=== PATIENT | male | born 1940 | race Caucasian/White ===

== ENCOUNTER → 2020-08-02 08:38 | Outpatient (BNVA) | payer MEDICARE, SELFPAY | PROVIDERS: Family Provider Emergency Medicine; PCP Family Medicine; Visit Provider Urology | DX: R97.20 Elevated prostate specific antigen [PSA] (principal); N40.1 Benign prostatic hyperplasia with lower urinary tract symptoms; N13.8 Other obstructive and reflux uropathy; R39.89 Other symptoms and signs involving the genitourinary system | CPT/HCPCS: 81003; 84153 ==

== ENCOUNTER → 2020-12-03 13:15 | Outpatient (BNVA) | payer MEDICARE, SELFPAY | PROVIDERS: Family Provider Emergency Medicine; PCP Family Medicine; Visit Provider Urology | DX: R97.20 Elevated prostate specific antigen [PSA] (principal); N39.9 Disorder of urinary system, unspecified; R39.9 Unspecified symptoms and signs involving the genitourinary system | CPT/HCPCS: 81003; G0103 ==

== ENCOUNTER → 2021-08-06 12:58 | Outpatient (BNVA) | payer MEDICARE, SELFPAY | PROVIDERS: Family Provider Emergency Medicine; PCP Family Medicine; Visit Provider Urology | DX: R39.9 Unspecified symptoms and signs involving the genitourinary system (principal); R97.20 Elevated prostate specific antigen [PSA] | CPT/HCPCS: 81003; 84153 ==

== ENCOUNTER 2022-04-26 10:22 | Emergency (ER) | payer MEDICARE, SELFPAY ==
[2022-04-26 10:35] VITALS: BP 144/73; PULSE 99; RESP 14; TEMP 36.8; O2SAT 96; BMI 21.8
--- NOTE | 2022-04-26 11:18 | USR_ITS ---
PROCEDURE INFORMATION: Exam: US Abdomen, Limited; Right Upper Quadrant Exam date and time: 04/26/2022 11:32 AM Age: 82 years old Clinical indication: Abdominal pain; Other: Ruq after eating TECHNIQUE: Imaging protocol: Real time ultrasound of the abdomen with image documentation. Limited exam focused on the right upper quadrant. COMPARISON: No relevant prior studies available. FINDINGS: Liver: Unremarkable. Gallbladder: No gallstones. No gallbladder wall thickening or pericholecystic fluid. Negative sonographic Tobar's sign, as per the performing edge sawyer. Biliary ducts: Normal. No stones. No dilation. Pancreas: Unremarkable as visualized. Right kidney: 1.6 x 1.9 x 1.2 cm simple cyst. No solid mass. No definite stones. No hydronephrosis. US/US gall bladder [id number] IMPRESSION: No acute sonographic findings.
[2022-04-26 12:07] LABS: Basophils # 0.1 10^3/uL (0.0-0.1); Basophils % 0.3 %; Eosinophils # 0.5 10^3/uL (0.0-0.8); Eosinophils % 1.8 %; Hematocrit 42.3 % (42.0-52.0); Hemoglobin 13.6 g/dL (11.7-16.6); Lymphocytes # 1.5 10^3/uL (0.8-4.8); Mean Corpuscular HGB Conc 32.2 g/dL (30.0-36.0); Mean Corpuscular Hemoglobin 29.6 pg (28.0-34.0); Mean Corpuscular Volume 92.2 fl (80-94); Mean Platelet Volume 9.8 fL (7.4-10.4); Monocytes # 4.8 10^3/uL (0.2-0.9); Neutrophils % 69.6 %; Nucleated Red Blood Cells % 0 %; Platelet Count 338 10^3/cmm (130-400); Red Blood Count 4.59 10^6/uL (4.1-5.3); Red Cell Distribution Width 14.6 % (12.1-15.1); White Blood Count 29.7 10^3/uL (4.0-10.0)
[2022-04-26 12:21] VITALS: BP 135/69; PULSE 72; RESP 18; TEMP 36.3; O2SAT 99
[2022-04-26 12:24] LABS: Alanine Aminotransferase 13 U/L (0-41); Albumin Level 3.3 g/dL (3.5-5.2); Alkaline Phosphatase 133 U/L (40-130); Anion Gap 14.2 (5-19); Aspartate Amino Transferase 18 U/L (0-40); Blood Urea Nitrogen 18 mg/dL (8-23); Calcium 9.4 mg/dL (8.5-10.5); Carbon Dioxide 32 mmol/L (22-29); Chloride 95 mmol/L (98-107); Globulin 3.3 g/dL (1.3-4.6); Glucose 143 mg/dL (65-115); Lipase 14 U/L (13-60); Osmolality Calculated 290 mOsm/kg (285-295); Potassium 3.2 mmol/L (3.5-5.1); Sodium 138 mmol/L (136-145); Total Bilirubin 0.5 mg/dL (0.15-1.2); Total Protein 6.6 g/dL (6.6-8.7)
[2022-04-26 12:33] LABS: Slide Review Slide Review Perform
--- NOTE | 2022-04-26 12:40 | CTR_ITS ---
PROCEDURE INFORMATION: Exam: CT Abdomen And Pelvis With Contrast Exam date and time: 04/26/2022 2:55 PM Age: 82 years old Clinical indication: Abdominal pain; Epigastric; Additional info: Abd pain TECHNIQUE: Imaging protocol: Computed tomography of the abdomen and pelvis with contrast. Axial, coronal and sagittal reformatted images were created and reviewed. Radiation optimization: All CT scans at this facility use at least one of these dose optimization techniques: automated exposure control; mA and/or kV adjustment per patient size (includes targeted exams where dose is matched to clinical indication); or iterative reconstruction. Contrast material: OMNI 350; Contrast volume: 80 ml; Contrast route: INTRA-ARTERIAL (ARTERIAL); COMPARISON: US gall bladder [id number] 04/26/2022 11:32 AM RADIATION DOSE METRICS: Total DLP (mGy-cm): 353.93 FINDINGS: Liver: Unremarkable. Gallbladder and bile ducts: No radiodense gallstones. No biliary ductal dilatation. Pancreas: Unremarkable. Spleen: Unremarkable. Adrenal glands: Normal. No mass. Kidneys and ureters: Bilateral renal cysts, measuring up to 1.6 cm on the right (no follow-up is indicated based on the imaging appearance). Mild to moderate left-sided hydronephrosis and perinephric stranding, secondary to a 1.3 x 1.8 cm calculus in the proximal left ureter (axial image 43 and coronal image 24). Nonobstructing bilateral renal calculi. Stomach and bowel: Mild, diffuse small bowel wall thickening and hyperemia. Large duodenal diverticula. Colonic diverticulosis without evidence of diverticulitis. No obstruction. No pneumatosis. Appendix: Normal. Intraperitoneal space: No free fluid. No organized fluid collection. No free air. Vasculature: Mild atherosclerotic disease. No aneurysm or dissection. Lymph nodes: Multiple mildly enlarged mesenteric lymph nodes. Urinary bladder: Enlarged prostate, projecting into the urinary bladder base. Reproductive: Mild circumferential urinary bladder wall thickening, likely secondary to underdistention and/or chronic bladder outlet obstruction. Bones/joints: No acute osseous abnormality. Osteopenia. Degenerative changes. Soft tissues: Unremarkable. CT/CT abdomen pelvis w con* [id number] IMPRESSION: 1. Mild, diffuse small bowel wall thickening and hyperemia, suggestive of nonspecific enteritis. 2. Mild mediastinal lymphadenopathy, likely reactive. 3. Mild to moderate left-sided hydronephrosis and perinephric stranding, secondary to a 1.3 x 1.8 cm calculus in the proximal left ureter. 4. Additional findings, as above. COMMENTS: Consistent with the [employer]'s Incidental Findings Committee white paper (J Am Christofer Radiol 2018): Any incidental renal lesion less than 1 cm or classified as too small to characterize, or any incidental cystic renal lesion characterized as simple-appearing, is likely benign. No follow-up imaging is recommended for these lesions per consensus recommendations based on imaging criteria.
[2022-04-26 14:41] VITALS: BP 148/61; O2SAT 100
[2022-04-26] MEDS: iohexol 350 mg/mL 100 mL Btl IV (14:58)
[2022-04-26 15:22] LABS: Add Urine Microscopic? NO; Charge for UA Resulting for Rev
[2022-04-26 15:30] LABS: Bilirubin Urine Neg (Negative); Blood Urine Neg (Negative); Glucose Urine UA Norm (Normal); Ketones Urine Negative (Negative); Leukocyte Esterase Urine Negative (Negative); Nitrate Urine Negative (Negative); Protein Urine Neg (Negative); Specific Gravity, Urine 1.005 (1.005-1.030); Urine Appearance Clear (CLEAR); Urine Color Yellow (Yellow); Urobilinogen Urine Norm (Negative); pH Urine 6.5 (5-7)
--- NOTE | 2022-04-26 16:06 | ED_ITS ---
HPI - Abdominal Pain General: Chief Complaint: Abdominal Pain Stated Complaint: Abd pain Time Seen by Provider: 04/26/22 11:18 History of Present Illness: 82-year-old male patient presents to the emergency department with diffuse abdominal pain. Patient states this has been going on the last 3 to 4 weeks. Patient states it is intermittent but seems to get worse after he eats. Patient states he did just find out that he was only taking his omeprazole as needed when he thought he needed it and yesterday started taking it daily. Patient states his PCP wanted him to come over here for an ultrasound of his gallbladder. Patient denies any nausea vomiting. Patient denies any di arrhea. Patient denies any fever. Patient denies any other complaints. Patient denies any urinary pain. Patient states he does have history of kidney stones Associated Symptoms: Denies change in bowel habits, chills, constipation, GI cramping, diarrhea, dysuria, fever(s), hematuria, hematemesis, nausea, syncope and vomiting Review of Systems Const: Denies: fever(s), chills, body aches, change in appetite, change in weight, fatigue, malaise or diaphoresis Eyes: Denies: change in vision, blurry vision, blind spots, photophobia, eye discomfort, eye discharge, eye redness, floaters or seeing flashes ENMT: Denies: throat pain, uvular edema, enlarged tonsils, odynophagia, hoarseness, mouth pain, swelling of lips/tongue, oral sores, bleeding gums, dental pain, dry mouth, ear or mastoid pain, ear discharge, change in hearing, tinnitus, disequilibrium, nasal discharge, nasal congestion, post nasal drip or sinus pain Card: Denies: chest pain, palpitations, irregular heart rhythm, edema, swel ling of feet/ankles, lightheadedness, syncope, pre-syncope, dyspnea on exertion, orthopnea, leg pain with exertion or acrocyanosis Resp: Denies: dyspnea, productive cough, non-productive cough, wheezing, stridor, pain on inspiration, change in phlegm color, hemoptysis or chest congestion GI: Reports: abdominal pain; Denies: nausea, vomiting, hematemesis, dysphagia, diarrhea, constipation, GI cramping, change in bowel habits or rectal pain : Denies: flank pain, dysuria, urinary frequency, urinary urgency, urinary hesitancy or hematuria Musc: Denies: neck pain, back pain, extremity pain, extremity swelling, joint pain, joint swelling, joint redness, joint warmth or deformity Skin/Breast: Denies: rash, pruritus, erythema, sores, new lesions, changes in skin color or dry skin Neuro: Denies: headache(s), numbness in extremities, weakness in extremities, sensory changes, lack of coordination, difficulty walking, frequent falls, dizziness, vertigo, confusion, behavioral changes, Slurred speech present, difficulty communicating thoughts or seizure-like activity Psych: Denies: anxiety, depression, suicidal ideation or homicidal ideation Endo: Denies: polyuria, polydipsia, tired all the time, cold intolerance, excessive sweating, flushing, hot flashes or heat intolerance Tr/Lymph: Denies: easy bruising, easy bleeding, petechiae, purpura, enlarged lymph nodes or tender lymph nodes All/Imm: Denies: urticaria, throat swelling, tongue swelling, facial swelling, acute wheezing or itchy eyes PFSH ED PFSH: Medical History Elevated PSA GERD (gastroesophageal reflux disease) HTN (hypertension) Hyperlipidemia Lower urinary tract symptoms Surgical History Hx of inguinal hernia repair Hx of shoulder surgery Family History Mother , at age 74 No problems noted. Father , at age 74 Stroke Social History Alcohol intake: current Alcohol intake frequency: 3 or more drinks per day Marital status: Current occupational status: retired History of recent travel: No Physical Exam Const: COMMON NORMALS: no acute distress, patient oriented x3, healthy appearing, alert and well nourished GENERAL APPEARANCE: cooperative, comfortable, well kempt and well developed; not ill appearing ORIENTATION/CONSCIOUSNESS: Yes awake, Yes oriented to person, Yes oriented to place and Yes oriented to time HENMT: COMMON NORMALS: normocephalic, atraumatic, hearing grossly normal bilaterally, external ears normal, EAC's normal, TM's normal bilaterally, Normal external nose present, Normal nasal mucous membranes and turbinates present and moist oral mucous membranes HEAD & SCALP: normal to inspection, normocephalic and atraumatic FACE & SINUS: normal facial exam, sinuses nontender and face symmetric NOSE: Normal external nose present, Normal nares present, Normal nasal mucous membranes and turbinates present, No nasal discharge present and Abnormal external nose present EXTERNAL EAR: Yes external ears normal and Yes mastoids normal EXTERNAL AUDITORY CANAL: EAC's normal TYMPANIC MEMBRANE: TM's normal bilaterally MOUTH: Normal oral and palatal mucosa present, lip normal, tongue normal and Normal salivary glands and ducts present THROAT: no uvular edema Eye: COMMON NORMALS: Equal, round and reactive pupils present, EOMs intact bilaterally and conjunctivae normal GENERAL EYE: appearance normal, both eyes and all related structures EYELID: eyelids normal CONJUNCTIVA: Yes conjunctivae normal SCLERA: sclerae normal CORNEA: Yes corneas normal PUPIL: Yes Equal, round and reactive pupils present Neck/C-Spine: COMMON NORMALS: full ROM, no lymphadenopathy, supple, no meningeal signs, no JVD and Thyroid normal GENERAL: Yes normal visual inspection and Yes trachea midline THYROID: Thyroid normal CERVICAL SPINE: Yes cervical ROM normal Lymph: LYMPHATIC: no lymphadenopathy noted and no lymphedema noted Chest: COMMONS NORMALS: normal inspection of the chest and normal palpation of entire chest wall Resp: COMMON NORMALS: normal respiratory effort, No retractions, No use of accessory muscles and clear to auscultation bilaterally EFFORT & INSPECTION: Yes able to speak in complete sentences and Yes symmetric chest movement AUSCULTATION: clear to auscultation bilaterally Cardio: COMMON NORMALS: no JVD, regular rate and regular rhythm RATE: regular rate RHYTHM: regular rhythm GI: COMMON NORMALS: Normal to inspection, nondistended, normoactive bowel sounds present, Soft to palpation, No hepatosplenomegaly present, no masses and no bruits INSPECTION: Yes normal to inspection AUSCULTATION: Yes normoactive bowel sounds PALPATION: Yes Soft to palpation and Yes No hepatosplenomegaly present PERCUSSION: normal to percussion RECTAL EXAM: Yes deferred : COMMON NORMALS: Yes no CVA tenderness BLADDER/KIDNEY EXAM: Yes no CVA tenderness Back/Pelvis: COMMON NORMALS: no CVA tenderness, thoracic and lumbar spine normal to inspection, no thoracic nor lumbar tenderness and thoraco-lumbar ROM normal THORACIC SPINE/UPPER BACK: Yes normal to inspection LUMBAR SPINE/LOWER BACK: Yes normal to inspection Extremity: COMMON NORMALS: normal to inspection, full ROM and capillary refill normal GENERAL: Yes normal exam except as noted Neuro: COMMON NORMALS: patient oriented x3, CN's II-XII intact bilaterally, moves all extremities, no focal motor deficits, no sensory deficits noted and gait normal SENSORIUM/ORIENTATION: Yes alert, Yes oriented to person, Yes oriented to place and Yes oriented to time MENINGEAL SIGNS: Yes no meningeal signs CRANIAL NERVES: Yes CN normal except as noted SPEECH: speech normal GAIT: Yes Normal gait present SENSORY EXAM: Yes extremities Psych: COMMON NORMALS: mental status grossly normal, Normal thought process present, cooperative, normal affect, speech normal, activity/motor behavior normal, denies hallucinations, denies homicidal ideation and denies suicidal ideation APPEARANCE: Yes grossly normal and Yes well kempt ATTITUDE: Yes c bailey ACTIVITY/MOTOR BEHAVIOR: Yes appropriate eye contact SPEECH: Yes normal speech THOUGHT PROCESS: Normal thought process present THOUGHT CONTENT: Yes Normal thought content present ATTENTION/CONCENTRATION: Yes attention grossly intact MEMORY/COGNITION: Yes memory grossly intact INSIGHT: Good insight present (Psych) JUDGEMENT: Good judgement present (Psych) Skin: COMMON NORMALS: no rashes or lesions noted, no wounds, turgor normal, no jaundice, no petechiae and no mottling GENERAL SKIN EXAM: no rashes or lesions noted and turgor normal Course Vital Signs: Vital signs: Vital Signs Temperature 97.4 F L 04/26/22 12:21 Pulse Rate 72 04/26/22 12:21 Respiratory Rate 18 04/26/22 12:21 Blood Pressure 148/61 04/26/22 14:41 Pulse Oximetry 100 04/26/22 14:41 Oxygen Delivery Me thod 04/26/22 12:21 MDM - Abdominal Pain Medical Decision Making Patient is well-appearing nontoxic and in no acute distress. Patient's vital signs are stable. Patient is afebrile. Patient's ultrasound of the gallbladder was negative for any acute findings. Patient did have an elevated white blood cell count of 29.7 therefore I did go ahead and order a CT abdomen pelvis with contrast. The CT reveals colitis as well as a small left ureter stone with perinephric stranding. The stone measures 1.3 x 1.8 cm patient states he does not go and see a urologist he gets the stones from time to time and he passes them without any issues. I did tell patient I would hook him up with a follow- up for urology. Given patient's findings on CT as well as his elevated white blood cell count I will go ahead and start him on antibiotics given new liter ature review I will start patient on Augmentin for colitis at this time. I do not feel any further testing is warranted at this time. Patient's urine is without infection. I discussed with patient home care as well as follow-up and return precautions. Lab Data : 04/26/22 11:30 04/26/22 11:30 Labs/Radiology: Radiology Impressions Gallbladder Ultrasound 04/26/22 11:18 IMPRESSION: No acute sonographic findings. Abdomen/Pelvis CT 04/26/22 12:40 IMPRESSION: 1. Mild, diffuse small bowel wall thickening and hyperemia, suggestive of nonspecific enteritis. 2. Mild mediastinal lymphadenopathy, likely reactive. 3. Mild to moderate left-sided hydronephrosis and perinephric stranding, secondary to a 1.3 x 1.8 cm calculus in the proximal left ureter. 4. Additional findings, as above. COMMENTS: Consistent with the [employer]'s Incidental Findings Committee white paper (J Am Christofer Radiol 2018): Any incidental renal lesion less than 1 cm or classified as too small to characterize, or any incidental cystic renal lesion characterized as simple-appearing, is likely benign. No follow-up imaging is recommended for these lesions per consensus recommendations based on imaging criteria. Laboratory Results WBC 29.7 10^3/uL (4.0-10.0) H 04/26/22 11:30 RBC 4.59 10^6/uL (4.1-5.3) 04/26/22 11:30 Hgb 13.6 g/dL (11.7-16.6) 04/26/22 11:30 Hct 42.3 % (42.0-52.0) 04/26/22 11:30 MCV 92.2 fl (80-94) 04/26/22 11:30 MCH 29.6 pg (28.0-34.0) 04/26/22 11:30 MCHC 32.2 g/dL (30.0-36.0) 04/26/22 11:30 RDW 14.6 % (12.1-15.1) 04/26/22 11:30 Plt Count 338 10^3/cmm (130-400) 04/26/22 11:30 MPV 9.8 fL (7.4-10.4) 04/26/22 11:30 Neut % (Auto) 69.6 % 04/26/22 11:30 Lymph % (Auto) 5.0 % 04/26/22 11:30 [place] % (Auto) 16.0 % 04/26/22 11:30 Eos % (Auto) 1.8 % 04/26/22 11:30 Baso % (Auto) 0.3 % 04/26/22 11:30 Neut # (Auto) 20.70 10^3/uL (1.8-7.7) H 04/26/22 11:30 Lymph # (Auto) 1.5 10^3/uL (0.8-4.8) 04/26/22 11:30 [place] # (Auto) 4.8 10^3/uL (0.2-0.9) H 04/26/22 11:30 Eos # (Auto) 0.5 10^3/uL (0.0-0.8) 04/26/22 11:30 Baso # (Auto) 0.1 10^3/uL (0.0-0.1) 04/26/22 11:30 Nucleated RBC % (auto) 0 % 04/26/22 11:30 Nucleated RBCs # 0.0 /100WBC 04/26/22 11:30 Sodium 138 mmol/L (136-145) 04/26/22 11:30 Potassium 3.2 mmol/L (3.5-5.1) L 04/26/22 11:30 Chloride 95 mmol/L (98-107) L 04/26/22 11:30 Carbon Dioxide 32 mmol/L (22-29) H 04/26/22 11:30 Anion Gap 14.2 (5-19) 04/26/22 11:30 BUN 18 mg/dL (8-23) 04/26/22 11:30 Creatinine 1.0 mg/dL (0.7-1.2) 04/26/22 11:30 GFR Calculation Not Reportable 04/26/22 11:30 Glucose 143 mg/dL (65-115) H 04/26/22 11:30 Calculated Osmolality 290 mOsm/kg (285-295) 04/26/22 11:30 Calcium 9.4 mg/dL (8.5-10.5) 04/26/22 11:30 Total Bilirubin 0.5 mg/dL (0.15-1.2) 04/26/22 11:30 AST 18 U/L (0-40) 04/26/22 11:30 ALT 13 U/L (0-41) 04/26/22 11:30 Alkaline Phosphatase 133 U/L (40-130) H 04/26/22 11:30 Total Protein 6.6 g/dL (6.6-8.7) 04/26/22 11:30 Albumin 3.3 g/dL (3.5-5.2) L 04/26/22 11:30 Globulin 3.3 g/dL (1.3-4.6) 04/26/22 11:30 Lipase 14 U/L (13-60) 04/26/22 11:30 Urine Color Yellow (Yellow) 04/26/22 15:14 Urine Appearance Clear (CLEAR) 04/26/22 15:14 Urine pH 6.5 (5-7) 04/26/22 15:14 Ur Specific West 1.005 (1.005-1.030) 04/26/22 15:14 Urine Protein Neg (Negative) 04/26/22 15:14 Urine Glucose (UA) Norm (Normal) 04/26/22 15:14 Urine Ketones Negative (Negative) 04/26/22 15:14 Urine Blood Neg (Negative) 04/26/22 15:14 Urine Nitrate Negative (Negative) 04/26/22 15:14 Urine Bilirubin Neg (Negative) 04/26/22 15:14 Urine Urobilinogen Norm mg/dL (Negative) 04/26/22 15:14 Ur Leukocyte Esterase Negative (Negative) 04/26/22 15:14 Discharge Plan Discharge Patient Disposition: Home Clinical Impression: Colitis, Calculus, renal Condition: Stable Prescriptions: New Augmentin 500-125 mg tablet 1 tab PO Q12H 10 Days Qty: 20 0RF No Action prednisone 20 mg tablet 60 mg PO DAILY PRN Rx Instructions: pt to take 60mg for days 1-3, then 40mg days 4-6, then 20mg 7-9 coenzyme Q10 [Co Q-10] 10 mg capsule 10 mg PO DAILY cholecalciferol (vitamin D3) 50 mcg (2,000 unit) capsule 50 mcg PO DAILY aspirin [Adult Low Dose Aspirin] 81 mg tablet,delayed release (DR/EC) 81 mg PO DAILY calcium polycarbophil [Fiber (calcium polycarbophil)] 625 mg tablet 625 mg PO .1/2 tablet daily folic acid 400 mcg tablet 0.4 mg PO DAILY turmeric root extract 500 mg capsule 500 mg PO DAILY tizanidine 4 mg capsule 4 mg PO .prn omeprazole 40 mg capsule,delayed release(DR/EC) 40 mg PO DAILY hydrochlorothiazide 25 mg tablet 25 mg PO DAILY Qty: 30 0RF simvastatin 40 mg tablet 40 mg PO DAILY Qty: 30 0RF Discharge Orders: Discharge ED (Routine); Ordered 04/26/22 Ordered By: Brittni Middleton Referrals: Braden Castro DO [Primary Care Provider] - Patient Instructions: Opioid Safety Coding Level of Care Code ED Parole Director for Joanna Mark
[2022-04-26 16:13] VITALS: PULSE 80; RESP 18; TEMP 36.7; O2SAT 95
[2022-04-26 16:14] VITALS: BP 136/70; PULSE 80; RESP 18; TEMP 36.7; O2SAT 95
--- NOTE | 2022-04-29 09:13 | DCPLANNER ---
Addendum entered by Stacy Massey 05/01/22 07:28: Patient had a follow up appointment scheduled for 04.30.22 with urology - patient did attend appointment. Original Note: staffing manager had message to schedule a follow up appointment for patient with urology. staffing manager sent patients information to the front office staff at urology. Patients information will be printed and reviewed. Clinic will call patient with appointment information.
== END 2022-04-26 16:16 | disposition home or self-care (01) ==
PROVIDERS: Emergency Medicine; Emergency Provider Registered Nurse; PCP Family Medicine
DX: K52.9 Noninfective gastroenteritis and colitis, unspecified (principal); N20.0 Calculus of kidney; Z79.82 Long term (current) use of aspirin; I10 Essential (primary) hypertension; E78.5 Hyperlipidemia, unspecified
CPT/HCPCS: 36415; 74177; 76705; 80053; 81003; 83690; 85025; 99284; Q9967

== ENCOUNTER 2022-04-30 13:24 | Outpatient (CLI) | payer MEDICARE, SELFPAY ==
--- NOTE | 2022-04-30 13:40 | XR_ITS ---
WS: [id number] KUB, AP view, 04/30/2022 Clinical Data: STONES Comparison: CT abdomen pelvis, 04/26/2022. Findings: There are small bilateral renal calcifications. There is a 1.1 x 1.9 cm calcification which is in the proximal left ureter. No abnormal intraabdominal masses are seen. There is no dilatated small bowel or evidence of obstruct ion. 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 Splenic artery calcifications are present. XR/XR KUB [id number] Impression: 1. 1.9 cm calcification in the proximal left ureter corresponding to CT abdomen and pelvis. 2. Multiple bilateral renal calculi.
== END 2022-04-30 13:25 | disposition home or self-care (01) ==
LOC: LAB 13:24
PROVIDERS: PCP Family Medicine; Visit Provider Urology
DX: R97.20 Elevated prostate specific antigen [PSA] (principal); N20.0 Calculus of kidney; R39.9 Unspecified symptoms and signs involving the genitourinary system; N20.1 Calculus of ureter; N20.9 Urinary calculus, unspecified
CPT/HCPCS: 74018; 81003; 84153; 99214

== ENCOUNTER 2022-05-04 08:00 | Day surgery (SDC) | payer MEDICARE, SELFPAY ==
[2022-05-01 13:50] VITALS: BMI 21.8
--- NOTE | 2022-05-01 13:53 | ECG_ITS ---
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 Measurements Intervals [place] Rate: 72 P: 44 IN: 175 QRS: 78 QRSD: 88 T: 52 QT: 381 QTc: 419 Interpretive Statements SINUS RHYTHM LOW QRS VOLTAGE IN PRECORDIAL LEADS [QRS DEFLECTION < 1.0 mV IN CHEST LEADS] No previous ECG available for comparison Electronically Signed On 05-01-2022 14:37:43 CDT by Lewis Hinojosa M.D. [id number]
--- NOTE | 2022-05-01 16:25 | ANES.PREANE2 ---
Pre-Anesthetic Assessment Height/Weight: Height 1.63 m Weight 57.606 kg Operation Date: 05/04/22 09:45 Proposed Procedures p CYSTOSCOPY LEFT RETROGRADE STENT EXTRACORPOREAL SHOCKWAVE LITHOTRIPSY 30992 10650 [facility] 26 52894,N20.1,N20.9(Not Applicable) - Sukhdeep Gusman MD s Retrograde Pyelogram(Left) - MD sebas Theodore Ureteral Stent Placement(Left) - Sukhdeep Gusman MD s ESWL Extracorporeal Shockwave Lithotrispy(Left) - Sukhdeep Gusman MD Familial anesthetic complications: none Was Beta Jamaal taken within 24 hours: N/A Was Clonidine taken within 24 hours: N/A Social Alcohol (daily) and No tobacco Exam alert, oriented x 3, clear to auscultation bilaterally and regular rate & rhythm Airway Submandibular: within normal limits Cervical ROM: within normal limits Mallampati: Class II Dentition: chipped CV/HEM Hypertension renal colic GI Gastroesophageal Reflux Disease colitis Metabolic Hyperlipidemia Anesthetic Plan ASA status: 2 Anesthesia: General Medications/Allergies Home Medications Medication Instructions Recorded Confirmed Last Taken Type hydrochlorothiazide 25 mg tablet 25 mg PO DAILY #30 tabs 04/18/20 05/01/22 Unknown Rx simvastatin 40 mg tablet 40 mg PO DAILY #30 tabs 04/18/20 05/01/22 Unknown Rx calcium polycarbophil 625 mg 625 mg PO .1/2 tablet daily 08/02/20 05/01/22 Unknown History tablet (Fiber (calcium polycarbophil)) cholecalciferol (vitamin D3) 50 50 mcg PO DAILY 08/02/20 05/01/22 Unknown History mcg (2,000 unit) capsule folic acid 400 mcg tablet 0.4 mg PO DAILY 08/02/20 05/01/22 Unknown History turmeric root extract 500 mg 500 mg PO DAILY 08/02/20 05/01/22 Unknown History capsule omeprazole 40 mg capsule,delayed 40 mg PO DAILY 12/03/20 05/01/22 Unknown History release amoxicillin 500 mg-potassium 1 tab PO Q12H 10 days #20 tabs 04/26/22 05/01/22 Unknown Rx clavulanate 125 mg tablet (Augmentin) Allergies Allergy/AdvReac Type Severity Reaction Status Date / Time No Known Allergies Allergy Verified 05/01/22 13:46 [facility] Anesthesia Medical History Elevated PSA GERD (gastroesophageal reflux disease) HTN (hypertension) Hyperlipidemia Lower urinary tract symptoms Surgical History Hx of inguinal hernia repair Hx of shoulder surgery Family History Mother , at age 74 No problems noted. Father , at age 74 Stroke Social History Smoking and tobacco status: never smoked Alcohol intake: current Alcohol intake frequency: 3 or more drinks per day Marital status: Current occupational status: retired History of recent travel: No Data Anesthesia Cardiac Studies: No Data to Display
--- NOTE | 2022-05-04 08:13 | XR_ITS ---
WS: [id number] XR KUB [id number] REASON FOR EXAM: Preop ESWL left proximal ureteral stone FINDINGS: There are multiple bilateral intrarenal calculi unchanged compared to 04/30/2022. There is an 18 mm calculus in the midportion of the left ureter at the level of the iliac crest. This finding is unchanged compared to 04/30/2022. No other significant abdominal finding. Degenerative spondylosis moderately severe in the lower and mid lumbar spine. Presumed degenerative a rthropathy in the sacroiliac joints. XR/XR KUB 48120 IMPRESSION: Bilateral intrarenal calculi and large left ureteral calculus unchanged.
[2022-05-04 08:29] VITALS: BP 123/70; PULSE 74; RESP 18; TEMP 36.5; O2SAT 99
--- NOTE | 2022-05-04 08:43 | PC.NURSE ---
Patients insurance did not accept the procedure. Procedure is being canceled and patient will be sent home. Patient notified of the incident.
--- NOTE | 2022-05-04 09:31 | P.HPUD_ITS ---
Surgery/Procedure H&P Update DATE OF PROCEDURE: May 04, 2022 DATE H&P PERFORMED: 04/30/22 CHANGES TO PREVIOUS DOCUMENTATION: Patient was scheduled for stent placement and ESWL today. Despite the size and degree of obstruction of the stone his insurance company did not approve it and a review for approval is being conducted. Unfortunately could not be completed in time for the scheduled surgery. His surgery has been therefore postponed. PREOP DIAGNOSIS: Huge left proximal ureteral stone PLANNED PROCEDURE: Operation Date: 05/04/22 09:45 Proposed Procedures p CYSTOSCOPY LEFT RETROGRADE STENT EXTRACORPOREAL SHOCKWAVE LITHOTRIPSY [id number] [facility] 26 53755,N20.1,N20.9(Not Applicable) - Sukhdeep Gusman MD s Retrograde Pyelogram(Left) - Sukhdeep Gusman MD s Ureteral Stent Placement(Left) - Sukhdeep Gusman MD s ESWL Extracorporeal Shockwave Lithotrispy(Left) - Sukhdeep Gusman MD
== END 2022-05-04 13:00 | disposition home or self-care (01) ==
LOC: OR 13:21
PROVIDERS: PCP Family Medicine; Visit Provider Urology
PROC: 0TJB8ZZ Inspection of Bladder, Via Natural or Artificial Opening Endoscopic (ICD-10-PCS; CPT 52000; principal; 2022-05-04 09:35)
PROC: (CPT 74420; 2022-05-04 09:35)
PROC: (CPT 50605; 2022-05-04 09:35)
PROC: (CPT 50590; 2022-05-04 09:35)
DX: N20.1 Calculus of ureter (principal); I10 Essential (primary) hypertension; E78.5 Hyperlipidemia, unspecified; K21.9 Gastro-esophageal reflux disease without esophagitis; Z53.8 Procedure and treatment not carried out for other reasons
CPT/HCPCS: 74018; 93005; J0330; J1100; J2405; J2704; J3010; J3490

== ENCOUNTER 2022-05-11 06:01 | Day surgery (SDC) | payer MEDICARE, SELFPAY ==
[2022-05-11] VITALS (8 sets, daily range): BP systolic 127–158; BP diastolic 57–78; PULSE 53–93; RESP 15–24; TEMP 36.1–36.9; O2SAT 95–97; BMI 21.8
--- NOTE | 2022-05-11 05:15 | W.PM.OPSUD ---
Surgery/Procedure H&P Update DATE OF PROCEDURE: May 11, 2022 DATE H&P PERFORMED: 04/30/22 H&P UPDATE INFORMATION: I have reviewed H&P completed within last 30 days, I have examined patient prior to procedure, Changes to prior documentation as noted here and H&P is in [facility] E[place] on date indicated CHANGES TO PREVIOUS DOCUMENTATION: Patient was originally scheduled for this procedure on 05/04/2022 but his insurance authorization did not come through in time and he was rescheduled until today. No additional changes. We had a good review again of the plans. Also reviewed that this will likely take more than 1 treatment possibly more than 1 modality to clear the stone completely. Reviewed the possibility of inability to access the kidney in a retrograde fashion which would necessitate interventional radiology at an alternative institution for antegrade access Hopefully that will not be the case but given the fact that the stone has been there for a while its more likely in this circumstance than the usual circumstances PREOP DIAGNOSIS: Huge left proximal ureteral stone PLANNED PROCEDURE: Operation Date: 05/11/22 07:00 Proposed Procedures p ESWL(Left) - Sukhdeep Gusman MD s Cystoscopy(Not Applicable) - Sukhdeep Gusman MD s Retrograde Pyelogram(Not Applicable) - Sukhdeep Gusman MD s Ureteral Stent Placement(Left) - Sukhdeep Gusman MD
--- NOTE | 2022-05-11 06:04 | XRR_ITS ---
PROCEDURE INFORMATION: Exam: XR Abdomen Exam date and time: 05/11/2022 6:14 AM Age: 82 years old Clinical indication: Screening exam; Other: Preop left eswl. TECHNIQUE: Imaging protocol: Radiologic exam of the abdomen. Views: Frontal supine view of the abdomen. 1 View. COMPARISON: CR XR KUB [id number] 05/04/2022 8:15 AM FINDINGS: Gastrointestinal tract: Normal. No bowel dilation. Organs: Persistent 2.0 cm obstructing stone in the left proximal ureter. Multiple additional nonobstructing stones are again seen projecting over the kidney shadows. Bones/joints: Mild levocurvature of the spine and multilevel degenerative changes seen. XR/XR KUB [id number] IMPRESSION: Persistent obstructing stone in the left proximal ureter. Additional bilateral nonobstructive kidney stones.
[2022-05-11] MEDS: sodium chloride 0.9% 1,000 ML 30 ML IV (06:40)
--- NOTE | 2022-05-11 06:41 | P.ANESUD_ITS ---
Pre-Anesthetic Update Pre-Anesthetic Assessment: Date of Surgery/Procedure: 05/11/22 Preop Vita gnosis: Large left proximal ureteral stone Proposed Procedure: Operation Date: 05/11/22 07:00 Proposed Procedures p ESWL(Left) - Sukhdeep Gusman MD s Cystoscopy(Not Applicable) - MD sebas Theodore Retrograde Pyelogram(Not Applicable) - MD sebas Theodore Ureteral Stent Placement(Left) - Sukhdeep Gusman MD Any changes to Pre-Anesthetic Assessment?: No Last Intake: Intake Last Liquid Date 05/10/22 Last Liquid Time 22:00 Last Solid Date 05/09/22 Last Solid Time 00:00 Vitals: Temperature 98.5 F 05/11/22 06:29 Temperature Source Temporal Artery S can 05/11/22 06:29 Pulse Rate 93 05/11/22 06:29 Respiratory Rate 18 05/11/22 06:29 Blood Pressure 158/78 05/11/22 06:29 Blood Pressure Lauren n 104 05/11/22 06:29 Pulse Oximetry 96 05/11/22 06:29 Oxygen Delivery Me thod 05/11/22 06:29 Exam: Pre-Anes Outpt Exam: alert, oriented x 3, clear to auscultation bilaterally and regular rate & rhythm Cardiac Studies: No Data to Display
--- NOTE | 2022-05-11 06:58 | P.OP_ITS ---
Operative Report Date of procedure: May 11, 2022 Pre-op diagnosis: Large left proximal ureteral stone Post-op diagnosis: Large left proximal ureteral stone Procedure done: 1. Cystoscopy, left retrograde, left ureteral stent: 7 Scottish by 26 cm double- pigtail without string 2. Extracorporeal shockwave lithotripsy left proximal ureteral stone Implants: Left ureteral stent Specimens removed/disposition: None Pathology: None Surgeon: Uzma Eligibility Services Representative: Lithotripsy cardiac catheterization technician: Stevan Ramirez Estimated blood loss: None Complications: None Findings: Anesthesia: General Condition: Stable Disposition: PACU Intraoperative findings: * Retrograde showed contrast flowing proximally beyond the stone into very dilated collecting system as expected based on CT scan results. * The wire thankfully went very easily passed the stone and the stent is well. * 3000 shocks administered to the stone with good change. Shock head position both anteriorly and then posteriorly. * Likely enough stone burden remaining that he will require an additional treatment or treatments but initial result is very good. Brief History: Mr. Arthur is a very pleasant 82-year-old white male who was discovered to have a almost 2 cm left proximal ureteral stone with obstructive changes during a work-up for abdominal pain which ultimately was found to be secondary to enteritis. The kidney looks viable although significantly impacted by what appears to be chronic obstruction. He is admitted now for treatment of the stone. We elected ESWL as first-line therapy with stenting possibly combination therapy and multiple modalities Procedure: After routine preoperative evaluation examination and obtaining of informed consent he was taken to the operating suite on 05/11/2022 where general anesthesia was administered without difficulty. Prepped and draped in usual sterile fashion in dorsolithotomy position paying careful attention to avoiding pressure points after appropriate timeout was performed, SCDs confirmed to be functioning, preoperative antibiotics administered, beta-domonique protocol confirmed. 21 Scottish cystoscope with 30 degree lens was introduced into the urethra meatus and advanced into the bladder to videoscopy. Bladder was systematically examined. Found to be within normal limits. An 8 Scottish cone-tip catheter was intubated into the left ureteral orifice for left retrograde ureteropyelogram demonstrating: Normal course and caliber of the distal ureter. The contrast did flow easily proximal to the stone into a very dilated collecting system. No other stones were seen. Flexible tip guidewire was advanced up the left ureter easily bypassing the stone and curling in the upper pole calyx. A 7 Scottish by 26 mm double-pigtail stent was passed over the guidewire through the cystoscope easily bypassing the stone. The wire was removed and the stent was confirmed to be in appropriate position as confirmed via fluoroscopy and cystoscopy He was then repositioned in supine position on the operative table such that the stone was located at the focal point with a shock head positioned anteriorly. He was placed in fairly steep Trendelenburg to assist retrograde flow of fragments as they break off the stone. Shockwave was initiated at a rate of 60 and low intensity. A several minute pause was conducted after about 300 shocks. Intensity was then slowly increased to 8. Some change occurred but after about 1000 shocks it was decided to position the shock and posteriorly. This led to more dramatic change. The focus was easily obtained and was well away from the iliac crest. Rate was increased to 90 after no substantial change was identified. At the completion of the prescribed number of shocks (3000) there still appeared to be at least some fragments probably too large to pass mostly in the inferior aspect but a lot of the fragments had migrated proximally appeared to be the same size as a stent or smaller. He tolerated the procedure well without complications and was awakened in the operating room and returned to the recovery room in stable condition. PLANS: 1. Anticipate discharge from outpatient surgery 2. Follow-up early next week with a KUB. I do not anticipate removing the stent at that time but rather making plans for additional treatment pending those results. 3. He is to maintain diligent straining and save pieces.
[2022-05-11] MEDS: levofloxacin-dextrose 5 % 500 MG/100 ML PREMIX 100 MG IV (07:05)
--- NOTE | 2022-05-11 07:41 | SUR.OPER ---
OMNIPAQUE 240MGI/ML 10ML ADDED TO STERILE FIELD. LOT NUMBER [id number]. 09/15/24
--- NOTE | 2022-05-11 08:52 | SUR.PHASEI ---
Patient awake, oriented, states no pain or nausea, eating ice chips
--- NOTE | 2022-05-11 14:11 | ANE.PACU2 ---
Inpatient post-anesthesia follow up: Airway intact: Yes Vital signs: Temperature 97.0 F Pulse Rate 53 Respiratory Rate 16 Blood Pressure 148/73 Pulse Oximetry 97 Oxygen Delivery Me thod Room Air Oxygen Flow Rate Fraction of Inspir ed Oxygen Hydration adequate: Yes Nausea and vomiting: No Pain level: 1 Mental status: Baseline
== END 2022-05-11 09:50 | disposition home or self-care (01) ==
PROVIDERS: PCP Family Medicine; Visit Provider Urology
PROC: (CPT 50590; principal; 2022-05-11 07:00)
PROC: 0TJB8ZZ Inspection of Bladder, Via Natural or Artificial Opening Endoscopic (ICD-10-PCS; CPT 52000; 2022-05-11 07:00)
PROC: (CPT 74420; 2022-05-11 07:00)
PROC: (CPT 50605; 2022-05-11 07:00)
DX: N20.1 Calculus of ureter (principal); I10 Essential (primary) hypertension; K21.9 Gastro-esophageal reflux disease without esophagitis; E78.5 Hyperlipidemia, unspecified
CPT/HCPCS: 50590; 52332; 74018; C2625; J1100; J1956; J2405; J2704; J3010; J3490; J7030

== ENCOUNTER 2022-05-18 13:17 | Outpatient (CLI) | payer MEDICARE, SELFPAY ==
--- NOTE | 2022-05-18 13:34 | XR_ITS ---
WS: [id number] Exam: XR KUB [id number] Date/Time of Exam: 05/18/2022 1:40 PM Reason For Exam: STONES Comparison 05/11/2022. A left-sided ureteral catheter is noted appearing to be in appropriate location. There are multiple c alcifications seen along the course of the catheter that probably represents stone fragments. Additio nal calcifications superimpose both renal silhouettes and apparently represent known renal stones. No bowel obstruction or free air. No sign of organ enlargement. Moderately advanced degenerative change s of lumbar spine and levoscoliosis. XR/XR KUB [id number] IMPRESSION: 1. Left-sided ureteral stent catheter in place appearing to be in appropriate l ocation. There are multiple calcifications seen along the course of the cathete r that most likely represent retained stone fragments in the left ureter. 2. Multiple calcifications superimposing the kidneys consistent with known maura l stones. 3. No acute abdominal process.
== END 2022-05-18 13:18 | disposition home or self-care (01) ==
LOC: RAD 13:20
PROVIDERS: PCP Family Medicine; Visit Provider Urology
DX: N20.1 Calculus of ureter (principal); N20.9 Urinary calculus, unspecified; R97.20 Elevated prostate specific antigen [PSA]
CPT/HCPCS: 74018; 99024

== ENCOUNTER → 2022-05-20 15:57 | Outpatient (BNVA) | payer MEDICARE, SELFPAY | PROVIDERS: PCP Family Medicine; Visit Provider Urology | DX: R39.9 Unspecified symptoms and signs involving the genitourinary system (principal); N20.1 Calculus of ureter; N20.9 Urinary calculus, unspecified; R97.20 Elevated prostate specific antigen [PSA] | CPT/HCPCS: 81003 ==

== ENCOUNTER 2022-06-15 14:51 | Outpatient (CLI) | payer MEDICARE, SELFPAY ==
--- NOTE | 2022-06-15 15:09 | XR_ITS ---
WS: [id number] Exam: XR KUB [id number] Date/Time of Exam: 06/15/2022 3:10 PM Reason For Exam: STONES Comparison 05/18/2022. No bowel obstruction or free air. A left-sided ureteral stent catheter is in place appearing to be in satisfactory location. There are several calcifications seen along the course of the catheter most l ikely representing residual stone fragments in the left ureter. There are fewer than noted on the rojelio or study. Additional calcifications are seen in the region of the bilateral kidneys and apparently re present known renal stones. Bony structures are intact. Degenerative changes and moderate levoscolios is of the lumbar spine. XR/XR KUB [id number] IMPRESSION: 1. Left-sided ureteral stent catheter in satisfactory location. There are sever al calcifications noted along the course of the catheter that likely represent retained stone fragments of the left ureter. There are fewer calcifications ernie ng the catheter than noted on the prior study. 2. Bilateral renal calculi.
== END 2022-06-15 14:52 | disposition home or self-care (01) ==
PROVIDERS: PCP Family Medicine; Visit Provider Urology
DX: N20.9 Urinary calculus, unspecified (principal); Z98.890 Other specified postprocedural states; N20.1 Calculus of ureter; R97.20 Elevated prostate specific antigen [PSA]
CPT/HCPCS: 74018; 81003; 99024

== ENCOUNTER 2022-06-29 05:53 | Day surgery (SDC) | payer MEDICARE, SELFPAY ==
[2022-06-26 11:49] VITALS: BMI 20.7
[2022-06-29] VITALS (7 sets, daily range): BP systolic 111–128; BP diastolic 42–59; PULSE 64–93; RESP 14–18; TEMP 36.4–36.8; O2SAT 97–100
--- NOTE | 2022-06-29 | SCC_ITS ---
Procedure done: 1. Cystoscopy with removal of the left ureteral stent 2. LEFT: Ureteroscopy, laser lithotripsy, stent replacement 38 seconds of fluoroscopic guidance, for a cumulative dose of 5.1 mGy, was provided to Dr. Gusman by the radiology department. C-arm images of the abdomen were saved for the patient's permanent record. [facility]
--- NOTE | 2022-06-29 06:00 | SC_ITS ---
WS: [id number] C-arm fluoroscopy for left ureteral stent placement Clinical Data: Left proximal ureteral stones Comparison: KUB, 06/29/2022 Findings: The left ureteral stent has been repositioned by Dr. Gusman. SC/C-arm FL for Urology Impression: Left ureteral stent repositioning.
--- NOTE | 2022-06-29 06:00 | XR_ITS ---
WS: [id number] KUB, AP view, 06/28/2022 Clinical Data: Left proximal ureteral stones Comparison: KUB, 06/15/2022 Findings: Bilateral renal calcifications are present. There is a left ureteral stent in good position. There ar e calcifications adjacent to the proximal stem unchanged. No abnormal intraabdominal masses are seen. There is no dilatated small bowel or evidence of obstruct ion. 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 Left upper quadrant vascular calcifica tions are present. XR/XR KUB [id number] Impression: 1. Left ureteral stent. 2. Bilateral renal calcifications and probable left ureteral calcifications.
--- NOTE | 2022-06-29 06:21 | W.PM.OPSUD ---
Surgery/Procedure H&P Update DATE OF PROCEDURE: June 29, 2022 DATE H&P PERFORMED: 06/15/22 H&P UPDATE INFORMATION: I have reviewed H&P completed within last 30 days, I have examined patient prior to procedure, No changes to prior documentation and H&P is in [facility] EMR on date indicated CHANGES TO PREVIOUS DOCUMENTATION: There appears the most of the more distal ureteral stone fragments have passed with a few remaining near the UVJ no change in the larger fragments remaining in the proximal ureter at the initial site. PREOP DIAGNOSIS: Residual left proximal ureteral calculi post ESWL PLANNED PROCEDURE: Operation Date: 06/29/22 07:00 Proposed Procedures p CYSTOSCOPY LEFT RETROGRADE URETEROSCOPY LASER STENT EXCHANGE [id number] 28610 MODIFIER 26,N20.1(Not Applicable) - Sukhdeep Gusman MD s Retrograde Pyelogram(Left) - MD sebas Theodore Ureteroscopy(Left) - MD sebas Theodore Laser Lithotripsy(Left) - MD sebas Theodore Ureteral Stent Placement(Left) - Sukhdeep Gusman MD
[2022-06-29] MEDS: sodium chloride 0.9% 1,000 ML 30 ML IV (06:23)
[2022-06-29 06:37] LABS: Basophils # 0.1 10^3/uL (0.0-0.1); Basophils % 0.4 %; Eosinophils # 0.5 10^3/uL (0.0-0.8); Eosinophils % 2.7 %; Hematocrit 39.5 % (42.0-52.0); Hemoglobin 12.2 g/dL (11.7-16.6); Lymphocytes % 11.7 %; Mean Corpuscular HGB Conc 30.9 g/dL (30.0-36.0); Mean Corpuscular Hemoglobin 27.9 pg (28.0-34.0); Mean Corpuscular Volume 90.2 fl (80-94); Mean Platelet Volume 9.1 fL (7.4-10.4); Monocytes # 4.5 10^3/uL (0.2-0.9); Monocytes % 26.8 %; Neutrophils # 8.59 10^3/uL (1.8-7.7); Nucleated Red Blood Cells % 0 %; Platelet Count 517 10^3/cmm (130-400); Red Blood Count 4.38 10^6/uL (4.1-5.3); Red Cell Distribution Width 16.1 % (12.1-15.1); White Blood Count 16.7 10^3/uL (4.0-10.0)
[2022-06-29 06:52] LABS: Blood Urea Nitrogen 18 mg/dL (8-23); Calcium 9.4 mg/dL (8.5-10.5); Carbon Dioxide 30 mmol/L (22-29); Chloride 94 mmol/L (98-107); Glucose 96 mg/dL (65-115); Osmolality Calculated 280 mOsm/kg (285-295); Sodium 134 mmol/L (136-145)
[2022-06-29] MEDS: levofloxacin-dextrose 5 % 500 MG/100 ML PREMIX 100 MG IV (07:00)
[2022-06-29 07:21] LABS: Neutrophils % 58.4 %; Slide Review Slide Review Perform
[2022-06-29] MEDS: iohexol 300 mg/mL 50 mL Btl (OR ONLY) XX (07:24)
--- NOTE | 2022-06-29 07:33 | ANES.PREANE2 ---
Pre-Anesthetic Assessment Height/Weight: Height 1.63 m Weight 54.885 kg Temp Pulse Resp BP Pulse Ox O2 Del Method 97.6 F 81 18 128/57 97 06/29/22 06:13 06/29/22 06:13 06/29/22 06:13 06/29/22 06:13 06/29/22 06:13 06/29/22 06:20 Preop Diagnosis: Residual left proximal ureteral calculi post ESWL Operation Date: 06/29/22 07:00 Proposed Procedures p CYSTOSCOPY LEFT RETROGRADE URETEROSCOPY LASER STENT EXCHANGE [id number] 50544 MODIFIER 26,N20.1(Not Applicable) - Sukhdeep Gusman MD s Retrograde Pyelogram(Left) - MD sebas Theodore Ureteroscopy(Left) - Sukhdeep Gusman MD s Laser Lithotripsy(Left) - Sukhdeep Gusman MD s Ureteral Stent Placement(Left) - Sukhdeep Gusman MD Familial anesthetic complications: none Was Beta Jamaal taken within 24 hours: N/A Was Clonidine taken within 24 hours: N/A Last intake: Intake Last Liquid Date 06/28/22 Last Liquid Time 18:00 Last Solid Date 06/28/22 Last Solid Time 18:00 Social Alcohol and No tobacco Exam alert, oriented x 3, clear to auscultation bilaterally and regular rate & rhythm Airway Submandibular: within normal limits Cervical ROM: within normal limits Mallampati: Class II Dentition: chipped CV/HEM Hypertension GI Gastroesophageal Reflux Disease Metabolic Hyperlipidemia Anesthetic Plan ASA status: 2 Anesthesia: General Medications/Allergies Home Medications Medication Instructions Recorded Confirmed Last Taken Type hydrochlorothiazide 25 mg tablet 25 mg PO DAILY #30 tabs 04/18/20 06/26/22 06/28/22 Rx simvastatin 40 mg tablet 40 mg PO DAILY #30 tabs 04/18/20 06/26/22 06/28/22 Rx calcium polycarbophil 625 mg 625 mg PO .1/2 tablet daily 08/02/20 06/26/22 06/28/22 History tablet (Fiber (calcium polycarbophil)) cholecalciferol (vitamin D3) 50 50 mcg PO DAILY 08/02/20 06/26/22 06/28/22 History mcg (2,000 unit) capsule folic acid 400 mcg tablet 0.4 mg PO DAILY 08/02/20 06/26/22 06/28/22 History turmeric root extract 500 mg 500 mg PO DAILY 08/02/20 06/26/22 06/28/22 History capsule omeprazole 40 mg capsule,delayed 40 mg PO DAILY 12/03/20 06/26/22 06/28/22 History release Allergies Allergy/AdvReac Type Severity Reaction Status Date / Time No Known Allergies Allergy Verified 06/26/22 11:43 Current Medications Generic Name Dose Route Start Last Admin Trade Name Dwayneq PRN Reason Stop Dose Admin Sodium Chloride 1,000 mls @ 30 mls/hr 06/29/22 06:00 06/29/22 06:23 Sodium Chloride 0.9% IV 06/30/22 05:59 30 mls/hr .Q24H GERRY Administration PFSH Anesthesia Medical History Elevated PSA GERD (gastroesophageal reflux disease) HTN (hypertension) Hyperlipidemia Lower urinary tract symptoms Surgical History History of lithotripsy Hx of inguinal hernia repair Hx of shoulder surgery Family History Mother , at age 74 No problems noted. Father , at age 74 Stroke Social History Smoking and tobacco status: never smoked Alcohol intake: current Alcohol intake frequency: 3 or more drinks per day Marital status: Current occupational status: retired History of recent travel: No Data Anesthesia : 06/29/22 06:25 06/29/22 06:25 Short CBC 06/29/22 Range/Units 06:25 WBC 16.7 H (4.0-10.0) 10^3/uL Hgb 12.2 (11.7-16.6) g/dL Hct 39.5 L (42.0-52.0) % MCV 90.2 (80-94) fl Plt Count 517 H (130-400) 10^3/cmm Neut % (Auto) 58.4 % Neut # (Auto) 8.59 H (1.8-7.7) 10^3/uL BMP 06/29/22 06:25 Sodium 134 L Potassium 3.0 L Chloride 94 L Carbon Dioxide 30 H BUN 18 Creatinine 1.3 H Glucose 96 Calcium 9.4 Cardiac Studies: No Data to Display
--- NOTE | 2022-06-29 08:29 | P.OP_ITS ---
Operative Report Date of procedure: June 29, 2022 Pre-op diagnosis: Residual left proximal ureteral calculi post ESWL Post-op diagnosis: Residual left proximal ureteral calculi post ESWL Procedure done: 1. Cystoscopy with removal of the left ureteral stent 2. LEFT: Ureteroscopy, laser lithotripsy, stent replacement Implants: 6 Palauan by 26 cm double-pigtail stent without string Specimens removed/disposition: Multiple stone fragments Pathology: Multiple stone fragments Surgeon: Uzma Estimated blood loss: Minimal Urine output: Not measured Complications: None Findings: Anesthesia: General Condition: Stable Disposition: PACU Intraoperative findings: * Several stones identified in the distal ureter and required fragmentation for removal. * Multiple fragments remained in the original location with a couple sizable pieces embedded in the wall but ultimately all were fragmented and removed. * Stent left indwelling in order to allow the ureter at the impaction site to heal. 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 He has been treated to date with ESWL and stent placement with greater than 50% reduction in stone burden but some persistent fragment to the original site with suspicion of impaction or least tight adherence to the ureteral wall. He has passed a large amount of fragments. X-ray still showed a few small pieces in the distal ureter. He is admitted now for endoscopic treatment of the residual stones and hopeful completion treatment Procedure: After routine preoperative evaluation examination and obtaining of informed consent he was taken to the operating suite on 06/29/2022 where general anesthesia was administered without difficulty after appropriate timeout was performed, SCDs confirmed to be functioning, preoperative antibiotics administered, beta-domonique protocol confirmed. Prepped and draped in usual sterile fashion in dorsolithotomy position paying careful attention to avoiding pressure points. Urethra meatus did not easily allow 21 Palauan scope so that was dilated with Ernestine sounds which allowed easy passage of the 21 into the bladder without difficulty. There were a few small fragments in the bladder and these were flushed free. The stent was in the expected position without encrustation. A flexible tip guidewire was then advanced up the left ureter next to the stent and the stent was then easily removed with fluoroscopic monitoring. The wire was secured to the drapes as a safety wire a 7 Palauan offset semirigid ureteroscope was then advanced up the ureter next to the guidewire and there were a few stones encountered in the distal ureter which were fragmented with laser and removed. The cystoscope was then passed up into the proximal ureter where there were fragments at the original site and it was clear that a fair percentage of them were adherent to the ureteral wall explaining why they had not passed. A second guidewire was passed and then a 38 cm ureteral access sheath was advanced over the guidewire under fluoroscopic guidance to just below the level of the stone. The remaining stones were then completely fragmented with a 365 ?m thulium superpulse laser fiber into small pieces that were either flushed through the sheath or removed with basketing. On final inspection there were no significant remaining fragments. The wall was inflamed where the stone could then impacted and for that reason it was decided as expected to leave a stent indwelling. Cystoscope was then backloaded over the guidewire and a 6 Palauan by 26 cm double-pigtail stent was advanced over the guidewire through the cystoscope into appropriate position as confirmed via fluoroscopy and cystoscopy. Stent was confirmed to be functioning. There was some fragments in the bladder and these were flushed through the cystoscope and the procedure was completed. Tolerated the procedure well without complications and was awakened in the operating room and returned to the recovery room in stable condition. PLANS: 1. Anticipate discharge from outpatient surgery today 2. Follow-up in 2 weeks with KUB and likely cystoscopy and stent removal.
--- NOTE | 2022-06-29 09:59 | PC.NURSE ---
Called Dr. Gusman's office and spoke with Bhavna. She will email a nurse to make a follow up appointment for this patient.
--- NOTE | 2022-06-29 16:46 | ANE.PACU2 ---
Inpatient post-anesthesia follow up: Airway intact: Yes Vital signs: Temperature 97.9 F Pulse Rate 64 Respiratory Rate 18 Blood Pressure 115/45 Pulse Oximetry 97 Oxygen Delivery Me thod Room Air Oxygen Flow Rate Fraction of Inspir ed Oxygen Hydration adequate: Yes Nausea and vomiting: No Pain level: 2 Mental status: Baseline
[2022-07-02 18:13] LABS: Stone Source LEFT URETER
== END 2022-06-29 10:00 | disposition home or self-care (01) ==
PROVIDERS: Anesthesiology; PCP Family Medicine; Visit Provider Urology
PROC: 0TJB8ZZ Inspection of Bladder, Via Natural or Artificial Opening Endoscopic (ICD-10-PCS; CPT 52000; principal; 2022-06-29 07:00)
PROC: 0TJ98ZZ Inspection of Ureter, Via Natural or Artificial Opening Endoscopic (ICD-10-PCS; CPT 52351; 2022-06-29 07:00)
PROC: (CPT 52356; 2022-06-29 07:00)
PROC: (CPT 52356; 2022-06-29 07:00)
DX: N20.1 Calculus of ureter (principal); I10 Essential (primary) hypertension; K21.9 Gastro-esophageal reflux disease without esophagitis; E78.5 Hyperlipidemia, unspecified
CPT/HCPCS: 52356; 36592; 74018; 76000; 80048; 82365; 85025; 88300; C2625; J1100; J1956; J2405; J2704; J3010; J3490; J7030

== ENCOUNTER → 2022-06-30 08:57 | Outpatient (BNVA) | payer MEDICARE, SELFPAY | PROVIDERS: PCP Family Medicine; Visit Provider Urology | DX: N20.1 Calculus of ureter (principal); R39.9 Unspecified symptoms and signs involving the genitourinary system; N99.89 Other postprocedural complications and disorders of genitourinary system; R33.8 Other retention of urine; N40.1 Benign prostatic hyperplasia with lower urinary tract symptoms | CPT/HCPCS: 51702; 51798; 81003; 99213 ==

== ENCOUNTER 2022-07-15 09:32 | Outpatient (CLI) | payer MEDICARE, SELFPAY ==
--- NOTE | 2022-07-15 09:46 | XRR_ITS ---
PROCEDURE INFORMATION: Exam: XR Abdomen Exam date and time: 07/15/2022 9:48 AM Age: 82 years old Clinical indication: Condition or disease; Kidney or ureter condition; Calculus (stone) in kidney; Additional info: veronika Lugo 07/15/22 @ 9:30 am appt to follow TECHNIQUE: Imaging protocol: Radiologic exam of the abdomen. Views: Frontal supine view of the abdomen. 1 View. COMPARISON: CR XR KUB [id number] 06/29/2022 6:06 AM FINDINGS: Tubes, catheters and devices: There is multiple calcific densities projecting over the kidney shadows, the largest measuring 0.5 cm on the left, consistent with nonobstructing stones. There is a double-J stent on the left. Gastrointestinal tract: Normal. No bowel dilation. Bones/joints: Mild levocurvature of the spine and multilevel degenerative changes seen. XR/XR KUB [id number] IMPRESSION: 1. Bilateral nonobstructive kidney stones. 2. Left-sided double-J stent in satisfactory position.
== END 2022-07-15 09:33 | disposition home or self-care (01) ==
PROVIDERS: PCP Family Medicine; Visit Provider Urology
DX: N20.2 Calculus of kidney with calculus of ureter; N40.1 Benign prostatic hyperplasia with lower urinary tract symptoms; Z96.0 Presence of urogenital implants; R97.20 Elevated prostate specific antigen [PSA]; R39.9 Unspecified symptoms and signs involving the genitourinary system
CPT/HCPCS: 52310; 74018; 81003

== ENCOUNTER 2023-08-04 11:04 | Inpatient (IN) | payer MEDICARE, SELFPAY ==
[2023-08-04] VITALS (7 sets, daily range): BP systolic 100–137; BP diastolic 56–80; PULSE 90–111; RESP 15–18; TEMP 36.5–36.8; O2SAT 95–100; BMI 20.9; BMI 20.5
--- NOTE | 2023-08-04 11:38 | CT_ITS ---
WS: [id number] CT ABDOMEN PELVIS TECHNIQUE: Contrast-enhanced CT of the abdomen and pelvis with coronal and sagittal reformatted image s. CLINICAL INFORMATION: abd pain COMPARISON: CT 04/26/2022 DLP: 361.[address] scans at [facility] use at least one of these dose optimization techniques: automated e xposure control; mA and/or kV adjustment per patient size (includes targeted exams where dose is matc hed to clinical indication); or iterative reconstruction. FINDINGS: Diffuse inflammatory stranding with thickening of the sigmoid colon compatible with acute diverticuli tis. Extensive colonic diverticulosis. In addition, diffuse wall thickening with surrounding indurati on and inflammatory stranding involving the cecum and hepatic flexure compatible with colitis or carlos tional segment of diverticulitis. Numerous diverticuli in this area. Numerous prominent central mesenteric lymph nodes and a few enlarged periaortic lymph nodes largest m easuring 14 mm progressed compared to 2021. Recommend 3-month follow-up CT abdomen pelvis. These are nonspecific but may be reactive. Lung bases are well aerated. Diffuse fatty infiltration liver. Gallbladder is contracted. Mild spleno megaly. Small esophageal hiatal hernia. Normal pancreas. Splenic artery calcification. Normal caliber abdominal aorta. Artery Adrenal glands are normal. Bilateral renal cysts. No hydronephrosis. IMPRESSION: 1. Acute diverticulitis sigmoid colon. No drainable abscess or fluid collection. Recommend follow-up to resolution. 2. In addition, diffuse inflammatory stranding with wall thickening involving the RIGHT ascending co yoko and splenic flexure compatible with colitis or diverticulitis. Multiple diverticuli in this area. 3. Markedly enlarged prostate measuring 4.5 cm. Recommend correlation PSA. Evidence of bladder outle t obstruction. 4. Multiple enlarged central mesenteric and para-aortic lymph nodes the largest measuring 14 mm prog ressed since 2021. These are nonspecific and recommend 3-month follow-up CT abdomen pelvis. 5. Small esophageal hiatal hernia.
--- NOTE | 2023-08-04 11:41 | ED_ITS ---
HPI - Abdominal Pain 2 General: Chief Complaint: Abdominal Pain Stated Complaint: abd pain,N/D,dx colitis Time Seen by Provider: 08/04/23 11:31 Source: patient Mode of arrival: ambulatory Limitations: no limitations History of Present Illness: 83-year-old male states over the last 2 to 3 months he has had some diffuse abdominal pains he has had some intermittent diarrhea as well. He states he was recently treated for colitis but was unable to finish his antibiotics due to it causing him abdominal pain. States the pain is sharp in nature rates it a 4 out of 10 he had no fevers denies any diffuse diarrhea denies any worsening proving factors. Associated Symptoms: Reports diarrhea; Denies chills, fever(s), nausea and vomiting Review of Systems 2 Const: Denies: fever(s), chills, body aches or change in appetite ENMT: Denies: throat pain or dental pain Card: Denies: chest pain Resp: Denies: dyspnea GI: Reports: abdominal pain and diarrhea; Denies: nausea or vomiting Musc: Denies: neck pain or back pain Skin/Breast: Denies: rash Neuro: Denies: headache(s) PFSH ED 2 PFSH: Medical History Lower urinary tract symptoms Elevated PSA HTN (hypertension) GERD (gastroesophageal reflux disease) Hyperlipidemia Surgical History History of lithotripsy Hx of inguinal hernia repair Hx of shoulder surgery Family History Mother , at age 74 No problems noted. Father , at age 74 Stroke Social History Smoking and tobacco/nicotine status: never used tobacco/nicotine Alcohol intake: current Alcohol intake frequency: 3 or more drinks per day Marital status: Current occupational status: retired Physical Exam 2 Const: COMMON NORMALS: no acute distress, patient oriented x3 and healthy appearing HENMT: COMMON NORMALS: normocephalic and atraumatic HEAD & SCALP: n ormocephalic and atraumatic Eye: COMMON NORMALS: Equal, round and reactive pupils present and EOMs intact bilaterally PUPIL: Yes Equal, round and reactive pupils present Neck/C-Spine: COMMON NORMALS: full ROM and supple Chest: COMMONS NORMALS: normal inspection of the chest and normal palpation of entire chest wall Resp: COMMON NORMALS: normal respiratory effort, No retractions, No use of accessory muscles and clear to auscultation bilaterally AUSCULTATION: clear to auscultation bilaterally Cardio: COMMON NORMALS: regular rate, regular rhythm and No murmurs present (Cardio) RATE: regular rate RHYTHM: regular rhythm GI: COMMON NORMALS: Normal to inspection, nondistended, normoactive bowel sounds present, Soft to palpation, non-tender and no masses PALPATION: Yes Soft to palpation Extremity: COMMON NORMALS: normal to inspection and full ROM Neuro: COMMON NORMALS: patient oriented x3, moves all extremities and no focal motor deficits Psych: COMMON NORMALS: mental status grossly normal, Normal thought process present and cooperative THOUGHT PROCESS: Normal thought process present Skin: COMMON NORMALS: no rashes or lesions noted and no wounds GENERAL SKIN EXAM: no rashes or lesions noted Course 2 Vital Signs: Vital signs: Vital Signs Temperature 97.7 F 08/04/23 11:11 Pulse Rate 110 H 08/04/23 11:11 Respiratory Rate 18 08/04/23 11:11 Blood Pressure 123/56 08/04/23 11:11 Pulse Oximetry 96 08/04/23 11:11 MDM - Abdominal Pain Medical Decision Making Patient presents here with abdominal pain he does have an elevated white count CT is consistent with diverticulitis spoke to the hospitalist will admit at this time for IV antibiotics. Medical Records I reviewed the patient's medical records. Lab Data I reviewed the patient's lab results. 08/04/23 11:37 08/04/23 11:37 Labs/Radiology: Laboratory Results WBC 28.74 10^3/uL (3.29-11.43) H 08/04/23 11:37 RBC 3.52 10^6/uL (3.85-5.65) L 08/04/23 11:37 Hgb 9.90 g/dL (11.27-16.99) L 08/04/23 11:37 Hct 31.3 % (37-53) L 08/04/23 11:37 MCV 88.9 fl (82-101) 08/04/23 11:37 MCH 28.1 pg (27-33) 08/04/23 11:37 MCHC 31.6 g/dL (30-55) 08/04/23 11:37 RDW 16.6 % (12.1-15.1) H 08/04/23 11:37 Plt Count 443 10^3/cmm (157-399) H 08/04/23 11:37 MPV 9.4 fL (7.4-10.4) 08/04/23 11:37 Neut % (Auto) 72.7 % 08/04/23 11:37 Lymph % (Auto) 3.7 % 08/04/23 11:37 [place] % (Auto) 15.2 % 08/04/23 11:37 Eos % (Auto) 0.8 % 08/04/23 11:37 Baso % (Auto) 0.8 % 08/04/23 11:37 Neut # (Auto) 20.90 10^3/uL (1.8-7.7) H 08/04/23 11:37 Lymph # (Auto) 1.1 10^3/uL (0.8-4.8) 08/04/23 11:37 [place] # (Auto) 4.4 10^3/uL (0.2-0.9) H 08/04/23 11:37 Eos # (Auto) 0.2 10^3/uL (0.0-0.8) 08/04/23 11:37 Baso # (Auto) 0.2 10^3/uL (0.0-0.1) H 08/04/23 11:37 Nucleated RBC % (auto) 0 % 08/04/23 11:37 Nucleated RBCs # 0.0 /100WBC 08/04/23 11:37 Sodium 132 mmol/L (136-145) L 08/04/23 11:37 Potassium 3.2 mmol/L (3.5-5.1) L 08/04/23 11:37 Chloride 94 mmol/L (98-107) L 08/04/23 11:37 Carbon Dioxide 27 mmol/L (22-29) 08/04/23 11:37 Anion Gap 14.2 (5-19) 08/04/23 11:37 BUN 18 mg/dL (8-23) 08/04/23 11:37 Creatinine 1.3 mg/dL (0.7-1.2) H 08/04/23 11:37 GFR Calculation Not Reportable 08/04/23 11:37 Glucose 242 mg/dL (65-115) H 08/04/23 11:37 Calculated Osmolality 284 mOsm/kg (285-295) L 08/04/23 11:37 Calcium 8.9 mg/dL (8.5-10.5) 08/04/23 11:37 Total Bilirubin 0.3 mg/dL (0.15-1.2) 08/04/23 11:37 AST 14 U/L (0-40) 08/04/23 11:37 ALT 9 U/L (0-41) 08/04/23 11:37 Alkaline Phosphatase 68 U/L (40-130) 08/04/23 11:37 Total Protein 6.4 g/dL (6.6-8.7) L 08/04/23 11:37 Albumin 3.2 g/dL (3.5-5.2) L 08/04/23 11:37 Globulin 3.2 g/dL (1.3-4.6) 08/04/23 11:37 Lipase 17 U/L (13-60) 08/04/23 11:37 All radiology interpretation(s) finalized by discharge Discharge Plan Discharge Patient Disposition: Admitted As Inpatient Clinical Impression: Diverticulitis Condition: Stable Prescriptions: No Action cholecalciferol (vitamin D3) 50 mcg (2,000 unit) capsule 50 mcg PO QAM folic acid 400 mcg tablet 400 mcg PO QAM turmeric root extract 500 mg capsule 500 mg PO QAM omeprazole 40 mg capsule,delayed release(DR/EC) 40 mg PO QAM metronidazole 500 mg tablet 500 mg PO TID Rx Instructions: for 10 days (rx filled 07/22/23) iron 325 mg (65 mg iron) Tablet 325 mg PO BEDTIME cefuroxime axetil 500 mg tablet 500 mg PO Q12H Rx Instructions: for 10 days (rx filled 07/22/23) Fiber-Caps (psyllium husk) 0.52 gram Capsule 0.52 g PO QAM Probiotic Blend 2 billion cell-50 mg Capsule 1 cap PO QAM simvastatin 40 mg tablet 40 mg PO BEDTIME tamsulosin 0.4 mg capsule 0.4 mg PO BEDTIME hydrochlorothiazide 25 mg tablet 25 mg PO QAM Referrals: Braden Castro DO [Primary Care Provider] - Coding Level of Care Code ED Roof Truss Detailer for Chg Fwbernie
[2023-08-04 11:52] LABS: Basophils # 0.2 10^3/uL (0.0-0.1); Basophils % 0.8 %; Eosinophils # 0.2 10^3/uL (0.0-0.8); Eosinophils % 0.8 %; Hematocrit 31.3 % (37-53); Lymphocytes # 1.1 10^3/uL (0.8-4.8); Lymphocytes % 3.7 %; Mean Corpuscular HGB Conc 31.6 g/dL (30-55); Mean Corpuscular Hemoglobin 28.1 pg (27-33); Mean Corpuscular Volume 88.9 fl (82-101); Mean Platelet Volume 9.4 fL (7.4-10.4); Monocytes # 4.4 10^3/uL (0.2-0.9); Monocytes % 15.2 %; Neutrophils % 72.7 %; Nucleated Red Blood Cells % 0 %; Platelet Count 443 10^3/cmm (157-399); Red Blood Count 3.52 10^6/uL (3.85-5.65); Red Cell Distribution Width 16.6 % (12.1-15.1); White Blood Count 28.74 10^3/uL (3.29-11.43)
[2023-08-04 12:09] LABS: Alanine Aminotransferase 9 U/L (0-41); Albumin Level 3.2 g/dL (3.5-5.2); Alkaline Phosphatase 68 U/L (40-130); Anion Gap 14.2 (5-19); Aspartate Amino Transferase 14 U/L (0-40); Blood Urea Nitrogen 18 mg/dL (8-23); Calcium 8.9 mg/dL (8.5-10.5); Carbon Dioxide 27 mmol/L (22-29); Chloride 94 mmol/L (98-107); Globulin 3.2 g/dL (1.3-4.6); Glucose 242 mg/dL (65-115); Lipase 17 U/L (13-60); Osmolality Calculated 284 mOsm/kg (285-295); Potassium 3.2 mmol/L (3.5-5.1); Sodium 132 mmol/L (136-145); Total Bilirubin 0.3 mg/dL (0.15-1.2); Total Protein 6.4 g/dL (6.6-8.7)
--- NOTE | 2023-08-04 12:12 | PC.PHAR ---
pt states he takes care of his own medications-pt states he is not taking celecoxib 200mg daily filled 07/20/23 30d/s pt states he read the pts leaflet and had too many side affects-pt states he still has one day left of metronidazole 500mg tid filled 07/22/23 10d/s and cefuroxime 500mg q12h for 10 days rx filled 07/22/23 10d/s pt states didnt take like he was suppose too-
[2023-08-04 12:55] LABS: Slide Review Slide Review Perform
[2023-08-04] MEDS: iohexol 350 mg/mL 500 mL Btl (per mL) IV (12:57)
[2023-08-04] MEDS: ciprofloxacin 400 MG/200 ML PREMIX 200 MG IV (13:39)
[2023-08-04] MEDS: metroNIDAZOLE IV 500 MG/100 ML PREMIX 100 MG IV (14:58)
--- NOTE | 2023-08-04 17:04 | P.HP_ITS ---
Providers/Chief Complaint 2 Admitting Physician: Minnie Ceballos MD Primary Care Provider: Braden Castro DO Chief Complaint: abd pain,N/D,dx colitis History of Present Illness Milton Arthur is a 83 year old male with past medical history of nephrolithiasis, hypertension, dyslipidemia who developed complaints of abdominal pain, multiple episodes of nausea vomiting or diarrhea about 1 week ago. He visited a local urgent care where he was started on treatment with cefuroxime 500 every 12 hours and metronidazole 500 3 times daily. His symptoms have continued to persist in spite of these. He came to the ER today due to persistent diarrhea and abdominal pain. CT of the abdomen and pelvis showed colitis and acute sigmoid diverticulitis. Patient does have a past history of colitis which was treated conservatively a few months ago. He had a colonoscopy about 5 years ago at which point he was diagnosed to have nonmalignant polyps but was otherwise unremarkable. He appears to be clinically dehydrated. No fever. Review of Systems 2 General: Reports: 10 or more systems reviewed and unremarkable except in HPI and below Const: Denies: fever(s), chills or body aches Eyes: Denies: change in vision, blurry vision or photophobia ENMT: Reports: hoarseness; Denies: throat pain, enlarged tonsils, odynophagia or nasal congestion Card: Denies: chest pain, palpitations, irregular heart rhythm, edema, swelling of feet/ankles, lightheadedness, pre-syncope, dyspnea on exertion or orthopnea Resp: Denies: dyspnea, productive cough, non-productive cough, wheezing, stridor, pain on inspiration, change in phlegm color, hemoptysis or chest congestion GI: Denies: abdominal pain, nausea, vomiting, hematemesis, coffee ground emesis, dysphagia, heartburn, diarrhea, constipation, GI cramping, change in stool character, hematochezia or melena : Denies: flank pain, dysuria, urinary frequency, urinary urgency, urinary hesitancy or hematuria Musc: Denies: neck pain, back pain, extremity pain, joint swelling, joint warmth or deformity Neuro: Denies: headache(s), numbness in extremities, weakness in extremities, sensory changes, difficulty walking, frequent falls, dizziness, vertigo, behavioral changes, Slurred speech present or seizure-like activity Psych: Denies: anxiety, depression, suicidal ideation or homicidal ideation Endo: Denies: polyuria, polydipsia, tired all the time, cold intolerance or hot flashes Tr/Lymph: Denies: easy bruising or easy bleeding Medications/Allergies Home Medications Medication Instructions Recorded Confirmed Last Taken Type cholecalciferol (vitamin D3) 50 50 mcg PO QAM 08/02/20 08/04/23 08/03/23 History mcg (2,000 unit) capsule folic acid 400 mcg tablet 400 mcg PO QAM 08/02/20 08/04/23 08/03/23 History turmeric root extract 500 mg 500 mg PO QAM 08/02/20 08/04/23 08/03/23 History capsule omeprazole 40 mg capsule,delayed 40 mg PO QAM 12/03/20 08/04/23 08/03/23 History release L.acidophil-L.casei-B.bifid-B.longum-FOS 1 cap PO QAM 08/04/23 08/04/23 08/03/23 History 2 billion cell-50 mg capsule (Probiotic Blend) cefuroxime axetil 500 mg tablet 500 mg PO Q12H 08/04/23 08/04/23 08/03/23 History see pharmacy comment ferrous sulfate 325 mg (65 mg 325 mg PO BEDTIME 08/04/23 08/04/23 08/03/23 History iron) tablet (iron) hydrochlorothiazide 25 mg tablet 25 mg PO QAM 08/04/23 08/04/23 08/03/23 History metronidazole 500 mg tablet 500 mg PO TID 08/04/23 08/04/23 08/03/23 History see pharmacy comment psyllium husk 0.52 gram capsule 0.52 g PO QAM 08/04/23 08/04/23 08/03/23 History (Fiber-Caps (psyllium husk)) simvastatin 40 mg tablet 40 mg PO BEDTIME 08/04/23 08/04/23 08/03/23 History tamsulosin 0.4 mg capsule 0.4 mg PO BEDTIME 08/04/23 08/04/23 08/03/23 History Allergies Allergy/AdvReac Type Severity Reaction Status Date / Time No Known Allergies Allergy Verified 08/04/23 12:05 PFSH Acute 2 PFSH: Medical History Lower urinary tract symptoms Elevated PSA HTN (hypertension) GERD (gastroesophageal reflux disease) Hyperlipidemia Surgical History History of lithotripsy Hx of inguinal hernia repair Hx of shoulder surgery Family History Mother , at age 74 No problems noted. Father , at age 74 Stroke Social History Smoking and tobacco/nicotine status: never used tobacco/nicotine Alcohol intake: current Alcohol intake frequency: 3 or more drinks per day Marital status: Current occupational status: retired Vitals/I&O/Wt Last Vital Signs Temp 97.7 F 08/04/23 11:11 Pulse 90 08/04/23 16:50 Resp 16 08/04/23 16:50 BP 117/57 08/04/23 16:50 Pulse Ox 98 08/04/23 16:50 O2 Del Method Room Air 08/04/23 16:50 08/04/23 08/04/23 08/04/23 06:59 14:59 22:59 Intake Total 200 / 200 100 / 300 Balance 200 / 200 100 / 300 Weight last 48 hrs Weight 55.338 kg Physical Exam 2 Narrative: General: No acute distress, AO x3, dehydrated HEENT: PERRLA, pupils bilaterally equal and reactive, pallors not present Chest: Normal vesicular breath sounds, no added sounds, equal good air entry bilaterally CVS: S1-S2 regular, no murmurs, no tachycardia, no gallops, no rubs Abdomen: Soft, nontender, no organomegaly, bowel sounds present Neuro: No focal deficits, no facial deformity, AO x3, power 5/5 in all limbs Data 08/05/23 05:30 08/05/23 05:30 Other data: Procedure(s): CT abdomen pelvis w con* [id number] IMPRESSION: 1. Acute diverticulitis sigmoid colon. No drainable abscess or fluid collection. Recommend follow-up to resolution. 2. In addition, diffuse inflammatory stranding with wall thickening involving the RIGHT ascending colon and splenic flexure compatible with colitis or diverticulitis. Multiple diverticuli in this area. 3. Markedly enlarged prostate measuring 4.5 cm. Recommend correlation PSA. Evidence of bladder outlet obstruction. 4. Multiple enlarged central mesenteric and para-aortic lymph nodes the largest measuring 14 mm progressed since 202. These are nonspecific and recommend 3- month follow-up CT abdomen pelvis. 5. Small esophageal hiatal hernia. A&P Assessment and plan (1) Diverticulitis: (2) Colitis: (3) Dehydration: (4) Leukocytosis: (5) CORY (acute kidney injury): Plan 83-year-old male presenting today with 1 week of complaints of diarrhea abdominal pain nausea and vomiting, found to have clinical evidence of dehydration. CT of the abdomen and pelvis showed acute sigmoid diverticulitis but also more diffuse colitis as noted above. He has failed outpatient p.o. antibiotic treatment. Check C. difficile PCR. Enteric bacterial panel. Clear liquid diet, As needed Zofran for pain management Antibiotic empiric therapy with piperacillin/tazobactam. Normal saline hydration with NS at 100 cc an hour Noted to have leukocytosis. Trending back to previous numbers it appears his leukocytosis has previously ranged between 17-20. Unclear if this may be his baseline. Patient denies being a smoker. Treat dehydration and acute infection as above and monitor for serial improvement. Attestations 2 Medical Necessity Statement*: Greater than 2 midnight admission is anticipated for management of colitis, acute diverticulitis, IV fluids, having failed outpatient oral antibiotic therapy. Coding Level of Care Code Acute Code for Chg Fwd Moderate MDM includes number and complexity of problems actively addressed during encounter, amount and/or complexity of data reviewed/ordered and described risk of complication, morbidity or mortality of management as documented Diagnoses Diverticulitis K57.92 Colitis K52.9 Dehydration E86.0 Leukocytosis D72.829 CORY (acute kidney injury) N17.9
[2023-08-04] MEDS: piperacillin-tazobactam 3.375 GM in sodium chloride 0.9% (plus) 50 ML IV (19:18)
[2023-08-04] MEDS: tamsulosin 0.4 mg Capsule PO (21:05)
[2023-08-04] MEDS: atorvastatin 40 mg Tablet PO (21:05)
[2023-08-05] MEDS: piperacillin-tazobactam 3.375 GM in sodium chloride 0.9% (plus) 50 ML IV ×3 (01:31→17:53)
[2023-08-05 03:28] VITALS: BP 107/61; PULSE 94; RESP 16; TEMP 36.7; O2SAT 99
[2023-08-05 06:02] LABS: Mean Corpuscular HGB Conc 31.5 g/dL (30-55); Mean Corpuscular Volume 88.8 fl (82-101); Mean Platelet Volume 9.5 fL (7.4-10.4); Platelet Count 399 10^3/cmm (157-399); Red Blood Count 3.04 10^6/uL (3.85-5.65); Red Cell Distribution Width 16.6 % (12.1-15.1); White Blood Count 20.59 10^3/uL (3.29-11.43)
[2023-08-05 06:25] LABS: Alanine Aminotransferase 6 U/L (0-41); Albumin Level 2.5 g/dL (3.5-5.2); Alkaline Phosphatase 63 U/L (40-130); Anion Gap 13.2 (5-19); Aspartate Amino Transferase 13 U/L (0-40); Blood Urea Nitrogen 12 mg/dL (8-23); Calcium 8.8 mg/dL (8.5-10.5); Carbon Dioxide 28 mmol/L (22-29); Chloride 97 mmol/L (98-107); Globulin 3.1 g/dL (1.3-4.6); Glucose 80 mg/dL (65-115); Osmolality Calculated 279 mOsm/kg (285-295); Potassium 3.2 mmol/L (3.5-5.1); Sodium 135 mmol/L (136-145); Total Bilirubin 0.4 mg/dL (0.15-1.2); Total Protein 5.6 g/dL (6.6-8.7)
[2023-08-05 06:41] LABS: Slide Review Slide Review Perform
[2023-08-05 06:42] LABS: Absolute Eosinophils 0.6 10^3/cmm (0.0-0.7); Absolute Segmented Neutrophil 13.8 10/cmm (1.6-7.1); Eosinophils 3 %; Lymphocytes 4 %; Monocytes Absolute 4.5 10^3/cmm (0.1-0.6); Segmented Neutrophils 67 %; Total Cells Counted 100 (0-100)
[2023-08-05 06:43] LABS: Absolute Neutrophil 13.8 10^3/cmm (1.4-6.5); Lymphocytes Absolute 0.8 10^3/cmm (1.2-3.4); Platelet Estimate Normal (Normal)
[2023-08-05 06:44] LABS: Anisocytosis Trace
[2023-08-05 07:36] VITALS: BP 94/52; PULSE 95; RESP 17; TEMP 36.9; O2SAT 96
--- NOTE | 2023-08-05 10:35 | PC.CHAP ---
Pastoral Care Encounter/Spiritual Assessment Type of Contact [] Declined guide dog instructor visit [] Patient/Family/Request visit [] Outpatient visit [] Follow-up visit [] Physician referral [] Code/Alert [x] Routine visit [] Staff referral [] Actively dying [] Patient sleeping [] Family support [] [] Out of room [] Palliative care [] [x] Receiving care in room [] Pre-surgical visit [] Trauma [] Long length of stay [] ICU visit [] Other: Relational/Emotional Strength [x] Patient feels connected with others/family/visitors/staff [] Distress [] Loneliness/isolation [] Abandonment Spirituality of Patient [x] Person of [place] [] Attends Mormonism of their [place] [x] Believes in Prayer [] Reads Bible or Shinto materials [] There are Spiritual issues to be addressed Corporate Development Associate Interventions [x] Prayer [x] Active listening [x] Non-anxious presence [x] Spiritual/emotional support [] Crisis/trauma care [x] Spiritual counseling [] Bereavement support [] Provided bereavement packet [] Provided Bible/devotional materials [] Provided toy/stuffed animal, coloring book to patient or family member [] Provided Communion [] Anointing/[place] [] Salvation [x] Completed spiritual assessment [] Other: Impact on Illness or Injury [] Angry [] Fearful [] Anxious [] Often cries [] Exhaustion [] Unable to work [] Unable to attend temple [] Unable to walk/stand [] Unable to read [] Unable to drive [] Unable to eat/drink [] Unable to sleep [] Unable to be with family [] Patient intubated [] Other: Summary pain in lower stomkic waiting on doctors results before he well be able to home has a postive attitude Time spent with patient 10 mins
[2023-08-05 11:43] VITALS: BP 114/53; PULSE 104; RESP 18; TEMP 36.9; O2SAT 92
[2023-08-05] MEDS: potassium chloride ER 20 mEq Tablet 40 MEQ PO (14:18)
[2023-08-05 15:59] VITALS: BP 119/73; PULSE 99; RESP 18; O2SAT 95
--- NOTE | 2023-08-05 17:05 | P.PN_ITS ---
Subjective 2 Subjective: Diarrhea frequency today after 1-2 bowel movements this morning. He is able to tolerate clear liquid diet. Will advance to GI soft today. Less nauseous. Medications: Reviewed: Yes Vitals/I&O/Wt Last Vital Signs Temp 98.4 F 08/05/23 11:43 Pulse 99 08/05/23 15:59 Resp 18 08/05/23 15:59 BP 119/73 08/05/23 15:59 Pulse Ox 95 08/05/23 15:59 O2 Del Method Room Air 08/05/23 15:59 08/05/23 08/05/23 08/05/23 06:59 14:59 22:59 Intake Total 50 / 400 240 / 240 Balance 50 / 400 240 / 240 Weight last 48 hrs Weight 54.998 kg Weight 54.431 kg Weight 55.338 kg Physical Exam 2 Narrative: General: No acute distress, AO x3, better hydration HEENT: PERRLA, pupils bilaterally equal and reactive, pallors not present Chest: Normal vesicular breath sounds, no added sounds, equal good air entry bilaterally CVS: S1-S2 regular, no murmurs, no tachycardia, no gallops, no rubs Abdomen: Soft, nontender, no organomegaly, bowel sounds present Neuro: No focal deficits, no facial deformity, AO x3, power 5/5 in all limbs Data 08/05/23 05:30 08/05/23 05:30 A&P Assessment and plan (1) Diverticulitis: (2) Colitis: (3) Dehydration: (4) Leukocytosis: (5) CORY (acute kidney injury): Plan 83-year-old male presenting today with 1 week of complaints of diarrhea abdominal pain nausea and vomiting, found to have clinical evidence of dehydration. CT of the abdomen and pelvis showed acute sigmoid diverticulitis but also more diffuse colitis as noted above. He has failed outpatient p.o. antibiotic treatment. Check C. difficile PCR. Enteric bacterial panel. Clear liquid diet, As needed Zofran for pain management Antibiotic empiric therapy with piperacillin/tazobactam. Normal saline hydration with NS at 100 cc an hour Noted to have leukocytosis. Trending back to previous numbers it appears his leukocytosis has previously ranged between 17-20. Unclear if this may be his baseline. Patient denies being a smoker. Treat dehydration and acute infection as above and monitor for serial improvement. Plan for today: 08/05/2023. Leukocytosis improving today at 20,000. Kidney function improving. Good urine output. Patient had 2 episodes of diarrhea. Send out for C. difficile testing. Able to tolerate p.o. intake. Advancing diet to GI soft and monitor for improvement. States he still has some abdominal discomfort but appears to be improving compared to yesterday. Will need interval colonoscopy at around 6 weeks as outpatient. Attestations 2 Medical Necessity Statement*: Continued need for IV antibiotics, IV fluid hydration. Coding Level of Care Code Acute Code for Chg Fwd Moderate MDM includes number and complexity of problems actively addressed during encounter, amount and/or complexity of data reviewed/ordered and described risk of complication, morbidity or mortality of management as documented Diagnoses Diverticulitis K57.92 Colitis K52.9 Dehydration E86.0 Leukocytosis D72.829 CORY (acute kidney injury) N17.9
[2023-08-05 19:24] VITALS: BP 119/58; PULSE 113; RESP 16; TEMP 37; O2SAT 96
[2023-08-05] MEDS: atorvastatin 40 mg Tablet PO (22:13)
[2023-08-05] MEDS: tamsulosin 0.4 mg Capsule PO (22:13)
[2023-08-05 23:40] VITALS: BP 110/58; PULSE 104; RESP 16; TEMP 37.1; O2SAT 98
[2023-08-06] MEDS: piperacillin-tazobactam 3.375 GM in sodium chloride 0.9% (plus) 50 ML IV ×2 (01:46→11:01)
[2023-08-06 04:25] VITALS: BP 95/51; PULSE 97; RESP 16; TEMP 36.7; O2SAT 96
[2023-08-06 05:19] LABS: Basophils # 0.2 10^3/uL (0.0-0.1); Basophils % 1.1 %; Eosinophils # 0.4 10^3/uL (0.0-0.8); Eosinophils % 1.8 %; Hematocrit 27.9 % (37-53); Lymphocytes # 1.3 10^3/uL (0.8-4.8); Lymphocytes % 6.2 %; Mean Corpuscular HGB Conc 31.2 g/dL (30-55); Mean Corpuscular Hemoglobin 28.1 pg (27-33); Mean Platelet Volume 9.5 fL (7.4-10.4); Monocytes # 4.3 10^3/uL (0.2-0.9); Monocytes % 20.4 %; Neutrophils # 13.75 10^3/uL (1.8-7.7); Neutrophils % 65.5 %; Nucleated Red Blood Cells % 0 %; Platelet Count 364 10^3/cmm (157-399); Red Cell Distribution Width 16.6 % (12.1-15.1)
[2023-08-06 05:44] LABS: Alanine Aminotransferase 7 U/L (0-41); Albumin Level 2.6 g/dL (3.5-5.2); Alkaline Phosphatase 52 U/L (40-130); Anion Gap 12.6 (5-19); Aspartate Amino Transferase 16 U/L (0-40); Blood Urea Nitrogen 13 mg/dL (8-23); Calcium 8.7 mg/dL (8.5-10.5); Carbon Dioxide 27 mmol/L (22-29); Chloride 100 mmol/L (98-107); Globulin 3.1 g/dL (1.3-4.6); Glucose 88 mg/dL (65-115); Osmolality Calculated 282 mOsm/kg (285-295); Potassium 3.6 mmol/L (3.5-5.1); Sodium 136 mmol/L (136-145); Total Bilirubin 0.3 mg/dL (0.15-1.2); Total Protein 5.7 g/dL (6.6-8.7)
[2023-08-06 08:00] VITALS: BP 120/65; PULSE 106; RESP 17; TEMP 36.7
[2023-08-06 08:08] VITALS: BP 120/65; PULSE 106; RESP 17; TEMP 36.7; O2SAT 94
[2023-08-06 12:19] VITALS: BP 124/71; PULSE 18; TEMP 36.6; O2SAT 93
[2023-08-06 13:48] VITALS: BP 124/71; PULSE 18; TEMP 36.6; O2SAT 93
--- NOTE | 2023-08-06 17:00 | P.DS_ITS ---
Discharge Providers Date of Admission: 08/04/23 13:35 Date of Discharge: August 31, 2023 Attending Provider at Admission: Minnie Ceballos MD Attending Provider at Discharge: Minnie Ceballos MD Primary Care Provider: Braden Castro DO Diagnoses at Discharge Discharge Diagnosis (1) Diverticulitis: Status: Acute (2) Colitis: Status: Inactive (3) Dehydration: Status: Acute (4) Leukocytosis: Status: Acute Qualifiers: Leukocytosis type: bandemia Qualified Code(s): D72.825 - Bandemia (5) CORY (acute kidney injury): Status: Acute Reason for Visit Reason for Visit: abd pain,N/D,dx colitis Brief History: Milton Arthur is a 83 year old male with past medical history of nephrolithiasis, hypertension, dyslipidemia who developed complaints of abdominal pain, multiple episodes of nausea vomiting or diarrhea about 1 week ago. He visited a local urgent care where he was started on treatment with cefuroxime 500 every 12 hours and metronidazole 500 3 times daily. His symptoms have continued to persist in spite of these. He came to the ER today due to persistent diarrhea and abdominal pain. CT of the abdomen and pelvis showed colitis and acute sigmoid diverticulitis. Hospital Course Hospital Course He was admitted for acute diverticulitis having failed conservative outpatient management. He was started on treatment with piperacillin/tazobactam while he was in the hospital. This was transitioned to oral ciprofloxacin and metronidazole at the time of discharge. He was improving with regards to his diarrhea and abdominal pain. He was able to tolerate advancing liquid diet. Referral has been provided to general surgery after discharge for interval colonoscopy. He remains pending at the time of discharge and will be followed up Physical Exam Narrative: General: No acute distress, AO x3 HEENT: PERRLA, pupils bilaterally equal and reactive, pallors not present Chest: Normal vesicular breath sounds, no added sounds, equal good air entry bilaterally CVS: S1-S2 regular, no murmurs, no tachycardia, no gallops, no rubs Abdomen: Soft, nontender, no organomegaly, bowel sounds present Neuro: No focal deficits, no facial deformity, AO x3, power 5/5 in all limbs Discharge Data Studies Completed and Pending Completed Studies During Hospitalization Category Date Time Status CT abdomen pelvis w con* [id number] Stat Cat Scan 08/04/23 11:38 Completed OVA and Parasites, Conc and PE Routine Lab 08/04/23 17:50 Completed Salmonella / Shigella / Campy Routine Lab 08/04/23 17:50 Completed Laboratory Results WBC 21.00 10^3/uL (3.29-11.43) H 08/06/23 04:56 RBC 3.10 10^6/uL (3.85-5.65) L 08/06/23 04:56 Hgb 8.70 g/dL (11.27-16.99) L 08/06/23 04:56 Hct 27.9 % (37-53) L 08/06/23 04:56 MCV 90.0 fl (82-101) 08/06/23 04:56 MCH 28.1 pg (27-33) 08/06/23 04:56 MCHC 31.2 g/dL (30-55) 08/06/23 04:56 RDW 16.6 % (12.1-15.1) H 08/06/23 04:56 Plt Count 364 10^3/cmm (157-399) 08/06/23 04:56 MPV 9.5 fL (7.4-10.4) 08/06/23 04:56 Neut % (Auto) 65.5 % 08/06/23 04:56 Lymph % (Auto) 6.2 % 08/06/23 04:56 [place] % (Auto) 20.4 % 08/06/23 04:56 Eos % (Auto) 1.8 % 08/06/23 04:56 Baso % (Auto) 1.1 % 08/06/23 04:56 Neut # (Auto) 13.75 10^3/uL (1.8-7.7) H 08/06/23 04:56 Lymph # (Auto) 1.3 10^3/uL (0.8-4.8) 08/06/23 04:56 [place] # (Auto) 4.3 10^3/uL (0.2-0.9) H 08/06/23 04:56 Eos # (Auto) 0.4 10^3/uL (0.0-0.8) 08/06/23 04:56 Baso # (Auto) 0.2 10^3/uL (0.0-0.1) H 08/06/23 04:56 Nucleated RBC % (auto) 0 % 08/06/23 04:56 Total Counted 100 (0-100) 08/05/23 05:30 Atypical Lymphs % 0.0 % (0-5) 08/05/23 05:30 Absolute Neutrophils 13.8 10^3/cmm (1.4-6.5) H 08/05/23 05:30 Segmented Neutrophils 67 % 08/05/23 05:30 Abs Segm Neuts (Man) 13.8 10/cmm (1.6-7.1) H 08/05/23 05:30 Band Neutrophils 0.0 % 08/05/23 05:30 Abs Band Neuts (Man) 0.0 10^3/cmm (0.0-1.2) 08/05/23 05:30 Absolute Lymphocytes 0.8 10^3/cmm (1.2-3.4) L 08/05/23 05:30 Lymphocytes (Manual) 4 % 08/05/23 05:30 Monocytes (Manual) 22.0 % 08/05/23 05:30 Absolute Monocytes 4.5 10^3/cmm (0.1-0.6) H 08/05/23 05:30 Eosinophils (Manual) 3 % 08/05/23 05:30 Absolute Eosinophils 0.6 10^3/cmm (0.0-0.7) 08/05/23 05:30 Basophils (Manual) 0.0 % 08/05/23 05:30 Absolute Basophils 0.0 10^3/cmm (0.0-0.2) 08/05/23 05:30 Metamyelocytes 3.0 % 08/05/23 05:30 Myelocytes 1.0 % 08/05/23 05:30 Nucleated RBCs # 0.0 /100WBC 08/06/23 04:56 Platelet Estimate Normal (Normal) 08/05/23 05:30 Anisocytosis Trace 08/05/23 05:30 Sodium 136 mmol/L (136-145) 08/06/23 04:56 Potassium 3.6 mmol/L (3.5-5.1) 08/06/23 04:56 Chloride 100 mmol/L (98-107) 08/06/23 04:56 Carbon Dioxide 27 mmol/L (22-29) 08/06/23 04:56 Anion Gap 12.6 (5-19) 08/06/23 04:56 BUN 13 mg/dL (8-23) 08/06/23 04:56 Creatinine 1.2 mg/dL (0.7-1.2) 08/06/23 04:56 GFR Calculation Not Reportable 08/06/23 04:56 Glucose 88 mg/dL (65-115) 08/06/23 04:56 Calculated Osmolality 282 mOsm/kg (285-295) L 08/06/23 04:56 Calcium 8.7 mg/dL (8.5-10.5) 08/06/23 04:56 Total Bilirubin 0.3 mg/dL (0.15-1.2) 08/06/23 04:56 AST 16 U/L (0-40) 08/06/23 04:56 ALT 7 U/L (0-41) 08/06/23 04:56 Alkaline Phosphatase 52 U/L (40-130) 08/06/23 04:56 Total Protein 5.7 g/dL (6.6-8.7) L 08/06/23 04:56 Albumin 2.6 g/dL (3.5-5.2) L 08/06/23 04:56 Globulin 3.1 g/dL (1.3-4.6) 08/06/23 04:56 Lipase 17 U/L (13-60) 08/04/23 11:37 C. difficile Tox (PCR) Not detected (NOT DETECTED) 08/04/23 17:50 Vitals Last Vital Signs Temp 97.8 F 08/06/23 13:48 Pulse 18 L 08/06/23 13:48 Resp 17 08/06/23 08:08 BP 124/71 08/06/23 13:48 Pulse Ox 93 08/06/23 13:48 O2 Del Method Room Air 08/06/23 12:19 Discharge Plan Discharge Patient Disposition: Home Condition: Stable Prescriptions: Continued folic acid 400 mcg tablet 400 mcg PO QAM turmeric root extract 500 mg capsule 500 mg PO QAM omeprazole 40 mg capsule,delayed release(DR/EC) 40 mg PO QAM iron 325 mg (65 mg iron) Tablet 325 mg PO BEDTIME Fiber-Caps (psyllium husk) 0.52 gram Capsule 0.52 g PO QAM Probiotic Blend 2 billion cell-50 mg Capsule 1 cap PO QAM simvastatin 40 mg tablet 40 mg PO BEDTIME tamsulosin 0.4 mg capsule 0.4 mg PO BEDTIME hydrochlorothiazide 25 mg tablet 25 mg PO QAM Discontinued cholecalciferol (vitamin D3) 50 mcg (2,000 unit) capsule 50 mcg PO QAM metronidazole 500 mg tablet 500 mg PO TID Rx Instructions: for 10 days (rx filled 07/22/23) cefuroxime axetil 500 mg tablet 500 mg PO Q12H Rx Instructions: for 10 days (rx filled 07/22/23) No Action multivitamin Tablet 1 tab PO DAILY Discharge Orders: Discharge Order (Routine); Ordered 08/06/23 Ordered By: Minnei Ceballos Referrals: Addi Silveira MD [Physician] - 1 month (colonoscopy , recurrent colitis We have notified your physician's clinic of the need for a follow-up appointment to be scheduled. If you have not heard from them within the next 2 business days, please call them directly. ) Dennis Park MD [Physician] - 7-10 days (We have notified your physician's clinic of the need for a follow-up appointment to be scheduled. If you have not heard from them within the next 2 business days, please call them directly. ) Discharge Diet: Usual diet Discharge Activity: Resume usual activity Patient Instructions: Ciprofloxacin (By mouth), Metronidazole (By mouth), Diverticulitis (GEN), Diverticulitis Diet (ED), Opioid Safety Discharge Attestations Time Spent in Discharge Care*: greater than 30 min Quality Metrics Clinical Quality Measures [ No reported AMI, CVA or VTE this stay] Coding Level of Care Code Acute Code for [facility] Fwd Diagnoses Diverticulitis K57.92 Colitis K52.9 Dehydration E86.0 Bandemia D72.825 Leukocytosis type: bandemia CORY (acute kidney injury) N17.9
[2023-08-07 23:45] LABS: Clostridium Difficile PCR NOT DETECTED (NOT DETECTED)
== END 2023-08-06 13:45 | disposition home or self-care (01) | DRG 392 ==
LOC: ER 13:45 → MEDSURG 17:44
PROVIDERS: Admitting Provider Student in an Organized Health Care Education/Training Program; Emergency Provider Emergency Medicine; PCP Family Medicine; Visit Provider Student in an Organized Health Care Education/Training Program
DX: K57.32 Diverticulitis of large intestine without perforation or abscess without bleeding (principal); N17.9 Acute kidney failure, unspecified; K52.9 Noninfective gastroenteritis and colitis, unspecified; E86.0 Dehydration; D72.829 Elevated white blood cell count, unspecified; I10 Essential (primary) hypertension; K21.9 Gastro-esophageal reflux disease without esophagitis; E78.5 Hyperlipidemia, unspecified
CPT/HCPCS: 36415; 74177; 80053; 82274; 83630; 83690; 85007; 85025; 87045; 87177; 87209; 87427; 87449; 87493; 96365; 96375; 99285; J0744; J2543; J3490; Q9967

== ENCOUNTER → 2023-08-17 11:36 | Outpatient (BNVA) | payer MEDICARE, SELFPAY | PROVIDERS: PCP Family Medicine; Visit Provider Surgery | DX: K52.9 Noninfective gastroenteritis and colitis, unspecified (principal) | CPT/HCPCS: 99204 ==

== ENCOUNTER 2023-10-28 08:36 | Day surgery (SDC) | payer MEDICARE, SELFPAY ==
--- NOTE | 2023-10-28 08:50 | W.PM.OPSFHP ---
Same Day Surgery H&P Indication for Procedure/HPI DATE OF PROCEDURE: October 28, 2023 CHIEF COMPLAINT/INDICATIONFOR SURGICAL PROCEDURE: history of colitis PREOP DIAGNOSIS: history of colitis PLANNED PROCEDURE: Operation Date: 10/28/23 10:35 Proposed Procedures p [id number] - colonoscopy K52.9(Not Applicable) - Addi Silveira MD Medications/Allergies* Home Medications Medication Instructions Recorded Confirmed Type folic acid 400 mcg tablet 400 mcg PO QAM 08/02/20 10/26/23 History turmeric root extract 500 mg 500 mg PO QAM 08/02/20 10/26/23 History capsule omeprazole 40 mg capsule,delayed 40 mg PO QAM 12/03/20 10/26/23 History release L.acidophil-L.casei-B.bifid-B.longum-FOS 1 cap PO QAM 08/04/23 10/26/23 History 2 billion cell-50 mg capsule (Probiotic Blend) ferrous sulfate 325 mg (65 mg 325 mg PO BEDTIME 08/04/23 10/26/23 History iron) tablet (iron) hydrochlorothiazide 25 mg tablet 25 mg PO QAM 08/04/23 10/26/23 History psyllium husk 0.52 gram capsule 0.52 g PO QAM 08/04/23 10/26/23 History (Fiber-Caps (psyllium husk)) simvastatin 40 mg tablet 40 mg PO BEDTIME 08/04/23 10/26/23 History tamsulosin 0.4 mg capsule 0.4 mg PO BEDTIME 08/04/23 10/26/23 History multivitamin 1 tab PO DAILY 08/18/23 10/26/23 History Allergies/Adverse Reactions Allergy/AdvReac Type Severity Reaction Status Date / Time No Known Allergies Allergy Verified 10/26/23 16:24 Pertinent History/Comorbid Conditions* Medical History (Updated 08/26/23 @ 06:10 by Bean Cuellar MD) Intra-abdominal lymphadenopathy Left ureteral calculus Lower urinary tract symptoms Elevated PSA HTN (hypertension) GERD (gastroesophageal reflux disease) Hyperlipidemia Surgical History (Updated 05/15/22 @ 05:23 by Sukhdeep Gusman MD) History of lithotripsy Hx of inguinal hernia repair Hx of shoulder surgery Family History (Updated 08/02/20 @ 08:50 by Bonny Garcia LPN) Father, at age 74 Mother, at age 74 Stroke Father Social History Smoking and tobacco/nicotine status: never used tobacco/nicotine Alcohol intake: current Alcohol intake frequency: 3 or more drinks per day Marital status: Current occupational status: retired Pertinent Exam Findings alert, oriented x 3, clear to auscultation bilaterally and regular rate & rhythm Recommendations Surgery/Procedure today Coding Level of Care Code Acute Code for g [place]
[2023-10-28 08:53] VITALS: BP 147/69; PULSE 98; RESP 16; TEMP 36.4; O2SAT 99; BMI 19.9
--- NOTE | 2023-10-28 09:02 | P.ANESASSM_ITS ---
Pre-Anesthetic Assessment Height/Weight: Height 1.63 m Weight 52.617 kg Temp Pulse Resp BP Pulse Ox O2 Del Method 97.6 F 98 16 147/69 99 Room Air 10/28/23 08:53 10/28/23 08:53 10/28/23 08:53 10/28/23 08:53 10/28/23 08:53 10/28/23 08:53 Preop Diagnosis: history of colitis Operation Date: 10/28/23 10:35 Proposed Procedures p [id number] - colonoscopy K52.9(Not Applicable) - Addi Silveira MD Familial anesthetic complications: None Was Beta Jamaal taken within 24 hours: N/A Was Clonidine taken within 24 hours: N/A Last intake: Intake Last Liquid Date 10/27/23 Last Liquid Time 20:00 Last Solid Date 10/26/23 Last Solid Time 18:00 Social Alcohol (2 drinks daily) and No tobacco Exam alert, oriented x 3, clear to auscultation bilaterally and regular rate & rhythm Airway Submandibular: within normal limits Cervical ROM: within normal limits Mallampati: Class II Dentition: full History/ROS No significant history except as noted and No significant complaints Pulmonary None reported CV/HEM Anemia and Hypertension Hx of kidney stones Hepatic None reported GI None reported Metabolic Hyperlipidemia Musc/skel Lower Back Pain and Osteoarthritis/DJD Neuropsych None reported Anesthetic Plan ASA status: 2 Anesthesia: Anesthesia Evaluation, General and MAC Risk of > 500 ml blood loss (7ml/kg in children): No Medications/Allergies Home Medications Medication Instructions Recorded Confirmed Last Taken Type folic acid 400 mcg tablet 400 mcg PO QAM 08/02/20 10/28/23 10/26/23 History turmeric root extract 500 mg 500 mg PO QAM 08/02/20 10/28/23 10/26/23 History capsule omeprazole 40 mg capsule,delayed 40 mg PO QAM 12/03/20 10/28/23 10/26/23 History release L.acidophil-L.casei-B.bifid-B.longum-FOS 1 cap PO QAM 08/04/23 10/28/23 10/26/23 History 2 billion cell-50 mg capsule (Probiotic Blend) ferrous sulfate 325 mg (65 mg 325 mg PO BEDTIME 08/04/23 10/28/23 10/26/23 History iron) tablet (iron) hydrochlorothiazide 25 mg tablet 25 mg PO QAM 08/04/23 10/28/23 10/26/23 History psyllium husk 0.52 gram capsule 0.52 g PO QAM 08/04/23 10/28/23 10/26/23 History (Fiber-Caps (psyllium husk)) simvastatin 40 mg tablet 40 mg PO BEDTIME 08/04/23 10/28/23 10/26/23 History tamsulosin 0.4 mg capsule 0.4 mg PO BEDTIME 08/04/23 10/28/23 10/26/23 History multivitamin 1 tab PO DAILY 08/18/23 10/28/23 10/26/23 History Allergies Allergy/AdvReac Type Severity Reaction Status Date / Time No Known Allergies Allergy Verified 10/26/23 16:24 [facility] Anesthesia Medical History (Updated 08/26/23 @ 06:10 by Bean Cuellar MD) Intra-abdominal lymphadenopathy Left ureteral calculus Lower urinary tract symptoms Elevated PSA HTN (hypertension) GERD (gastroesophageal reflux disease) Hyperlipidemia Surgical History History of lithotripsy Hx of inguinal hernia repair Hx of shoulder surgery Family History Mother , at age 74 No problems noted. Father , at age 74 Stroke Social History (Updated 08/17/23 @ 11:51 by Morena Deutsch) Smoking and tobacco/nicotine status: never used tobacco/nicotine Alcohol intake: current Alcohol intake frequency: 3 or more drinks per day Marital status: Current occupational status: retired Data Anesthesia Cardiac Studies: No Data to Display
[2023-10-28] MEDS: sodium chloride 0.9% 1,000 ML 30 ML IV (09:03)
[2023-10-28 09:50] VITALS: BP 116/61; PULSE 77; RESP 12; TEMP 36.2; O2SAT 100
[2023-10-28 10:10] VITALS: BP 127/67; PULSE 81; RESP 16; O2SAT 100
--- NOTE | 2023-10-28 20:13 | ANE.PACU2 ---
Inpatient post-anesthesia follow up: Airway intact: Yes Vital signs: Temperature 97.1 F Pulse Rate 81 Respiratory Rate 16 Blood Pressure 127/67 Pulse Oximetry 100 Oxygen Delivery Me thod Room Air Oxygen Flow Rate Fraction of Inspir ed Oxygen Hydration adequate: Yes Nausea and vomiting: No Pain level: 1 Mental status: Baseline
== END 2023-10-28 10:19 | disposition home or self-care (01) ==
PROVIDERS: PCP Family Medicine; Visit Provider Surgery
PROC: 0DJD8ZZ Inspection of Lower Intestinal Tract, Via Natural or Artificial Opening Endoscopic (ICD-10-PCS; CPT 45378; principal; 2023-10-28 10:35)
DX: K52.9 Noninfective gastroenteritis and colitis, unspecified (principal); I10 Essential (primary) hypertension; K21.9 Gastro-esophageal reflux disease without esophagitis; E78.5 Hyperlipidemia, unspecified; K57.30 Diverticulosis of large intestine without perforation or abscess without bleeding
CPT/HCPCS: G0121; J2704; J7030

== ENCOUNTER 2024-02-10 12:16 | Emergency (ER) | payer MEDICARE, SELFPAY ==
[2024-02-10] VITALS (10 sets, daily range): BP systolic 111–141; BP diastolic 55–76; PULSE 102–119; RESP 18; TEMP 36.6; O2SAT 93–97; BMI 20.5
--- NOTE | 2024-02-10 15:36 | XRR_ITS ---
PROCEDURE INFORMATION: Exam: XR Chest Exam date and time: 02/10/2024 3:47 PM Age: 83 years old Clinical indication: Cough and dyspnea; Additional info: Dyspnea/cough TECHNIQUE: Imaging protocol: Radiologic exam of the chest. Views: 1 view. COMPARISON: CT abdomen pelvis w con* [id number] 08/04/2023 12:55 PM FINDINGS: Lungs: Unremarkable. No consolidation. Pleural spaces: Unremarkable. No pleural effusion. No pneumothorax. Heart/Mediastinum: Unremarkable. No cardiomegaly. Bones/joints: Unremarkable. Soft tissues: Metallic object projecting over the left upper quadrant may be external to the patient or due to ingested foreign body, please correlate clinically. XR/XR chest 1V portable [id number] IMPRESSION: No acute plain radiographic cardiopulmonary abnormality. Metallic object over the left upper quadrant likely external to the patient, versus ingested foreign body, please correlate clinically or with KUB evaluation as clinically warranted.
--- NOTE | 2024-02-10 15:39 | ED_ITS ---
Documented by User: Cristiano Conti DO 02/11/24 06:54 HPI - General Adult 2 General: Chief complaint: General Medical Stated complaint: [facility] sent said is septic Time Seen by Provider: 02/10/24 12:53 Source: patient Mode of arrival: ambulatory History of Present Illness: 63-year-old male directed to the emergen cy room by his primary care doctor. Last week he was in [place] and had a episode of ureterolithiasis that required lithotripsy and stent placement. He was in the hospital for several days and then discharged home he returned back to this area he seen his primary care doctor evidently some lab work was done and he was advised today to return to the emergency room because they told him he was septic. He denies any fever sweats or chills he has intermittently had some blood in his urine he denies any flank pain at this time. No nausea vomiting or diarrhea no chest pain or shortness of breath. We were able to eventually get the records is white count is markedly elevated over 100,000 at his doctor's office Associated symptoms: Deny chest pain, confusion, cough, diaphoresis, decreased appetite, dyspnea, fevers/chills, headache(s), malaise, nausea, rash, palpitations, seizures, short of breath, syncope, vomiting or weakness Review of Systems 2 Const: Denies: fever(s), chills, malaise or diaphoresis Card: Denies: chest pain, palpitations or syncope Resp: Denies: dyspnea GI: Denies: abdominal pain, nausea or vomiting : Denies: dysuria, urinary frequency or urinary urgency Musc: Denies: neck pain or back pain Skin/Breast: Denies: rash Neuro: Denies: headache(s) or confusion PFSH ED 2 PFSH: Medical History Intra-abdominal lymphadenopathy Left ureteral calculus Elevated PSA HTN (hypertension) GERD (gastroesophageal reflux disease) Hyperlipidemia Surgical History History of lithotripsy Hx of inguinal hernia repair Hx of shoulder surgery Family History Mother , at age 74 No problems noted. Father , at age 74 Stroke Social History Smoking and tobacco/nicotine status: never used tobacco/nicotine Alcohol intake: current Alcohol intake frequency: 3 or more drinks per day Marital status: Current occupational status: retired Physical Exam 2 Const: GENERAL APPEARANCE: cooperative and comfortable O RIENTATION/CONSCIOUSNESS: Yes awake, Yes oriented to person, Yes oriented to place and Yes oriented to time HENMT: COMMON NORMALS: normocephalic, atraumatic and hearing grossly normal bilaterally HEAD & SCALP: normocephalic and atraumatic Resp: COMMON NORMALS: normal respiratory effort, No retractions, No use of accessory muscles and clear to auscultation bilaterally AUSCULTATION: clear to auscultation bilaterally Cardio: COMMON NORMALS: regular rate, regular rhythm and No murmurs present (Cardio) RATE: regular rate RHYTHM: regular rhythm GI: COMMON NORMALS: Soft to palpation and No hepatosplenomegaly present A USCULTATION: Yes normoactive bowel sounds PALPATION: Yes Soft to palpation, No Tenderness to palpation present (GI), No Guarding due to palpation present (GI) and Yes No hepatosplenomegaly present Extremity: COMMON NORMALS: normal to inspection, capillary refill normal, no clubbing, cyanosis or edema, no calf tenderness and no pedal edema Neuro: SENSORIUM/ORIENTATION: Yes oriented to person, Yes oriented to place and Yes oriented to time Skin: COMMON NORMALS: no rashes or lesions noted GENERAL SKIN EXAM: no rashes or lesions noted Course 2 Vital Signs: Vital signs: Vital Signs Temperature 97.9 F 02/10/24 12:21 Pulse Rate 118 H 02/10/24 20:50 Respiratory Rate 18 02/10/24 12:21 Blood Pressure 132/62 02/10/24 22:38 Pulse Oximetry 94 02/10/24 20:50 Oxygen Delivery Hi thod Room Air 02/10/24 18:30 MDM - General Adult Medical Decision Making Care signed out to Dr. Kruger at change of shift. See final notes for diagnosis and disposition. Patient care was transitioned to pa at shift change. Awaiting urinalysis and CT scan. Consultation: I spoke with Dr. Robertson with hematology/oncology. He recommends good hydration. We checked a uric acid which was 12. So replaced him on allopurinol. First dose here with a dose of IV fluids. He will see the patient on Wednesday. CT of the abdomen pelvis with contrast: Patient does have a stent in some stones in the kidneys. Some hydronephrosis. Urinalysis though was relatively clear. Hematuria as expected but does not appear infected. He has no infectious symptoms. His creatinine was up a little bit over baseline. Fluids have been given. Lab review: Patient has leukocytosis. He is at 105. 3 blasts. I discussed these findings with hematology and recommends allopurinol and follow-up in clinic. Uric acid was checked which is elevated at 12. Renal function is up slightly from previous from 1.2 to 1.3 to 1.9 today. 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 Elevated uric acid Acute on chronic renal insufficiency -2 L normal saline bolus, 300 mg allopurinol - Discharged home - Discussed findings and plan with patient. Answered any questions. - All laboratory values were reviewed and interpreted personally by myself, the ER physician - All imaging was reviewed and interpreted personally by myself, the ER physician. - Evaluation and treatment of this problem were appropriate in the emergency setting Lab Data 02/10/24 15:48 02/10/24 Unknown Radiology Impressions Chest X-Ray 02/10/24 15:36 IMPRESSION: No acute plain radiographic cardiopulmonary abnormality. Metallic object over the left upper quadrant likely external to the patient, versus ingested foreign body, please correlate clinically or with KUB evaluation as clinically warranted. Abdomen/Pelvis CT 02/10/24 17:09 IMPRESSION: 1. Mild left hydronephrosis may be an expected finding in the setting of nephroureteral stent . Short-term sonographic follow-up a few hours after emptying the bladder suggested to ensure resolution. 2. However, there is elevation diffuse left urothelial thickening which could indicate ureteritis and pyelitis. Urinalysis correlation recommended. 3. Nonobstructive renal stones. 4. Moderate splenomegaly has progressed from 08/04/2023. Multiple mildly -moderately enlarged retroperitoneal and central mesenteric lymph nodes. The findings could indicate lymphoproliferative disease , lymphoma or inflammatory etiology. Laboratory Results WBC 105.78 10^3/uL (3.29-11.43) H* 02/10/24 15:48 RBC 4.36 10^6/uL (3.85-5.65) 02/10/24 15:48 Hgb 12.60 g/dL (11.27-16.99) 02/10/24 15:48 Hct 39.3 % (37-53) 02/10/24 15:48 MCV 90.1 fl (82-101) 02/10/24 15:48 MCH 28.9 pg (27-33) 02/10/24 15:48 MCHC 32.1 g/dL (30-55) 02/10/24 15:48 RDW 19.9 % (12.1-15.1) H 02/10/24 15:48 Plt Count 120 10^3/cmm (157-399) L 02/10/24 15:48 MPV 10.3 fL (7.4-10.4) 02/10/24 15:48 Total Counted 100 (0-100) 02/10/24 15:48 Atypical Lymphs % 2.0 % (0-5) 02/10/24 15:48 Absolute Neutrophils 39.1 10^3/cmm (1.4-6.5) H 02/10/24 15:48 Segmented Neutrophils 29 % 02/10/24 15:48 Abs Segm Neuts (Man) 30.7 10/cmm (1.6-7.1) H 02/10/24 15:48 Band Neutrophils 8.0 % 02/10/24 15:48 Abs Band Neuts (Man) 8.5 10^3/cmm (0.0-1.2) H 02/10/24 15:48 Absolute Lymphocytes 7.4 10^3/cmm (1.2-3.4) H 02/10/24 15:48 Lymphocytes (Manual) 5 % 02/10/24 15:48 Monocytes (Manual) 10.0 % 02/10/24 15:48 Absolute Monocytes 10.6 10^3/cmm (0.1-0.6) H 02/10/24 15:48 Eosinophils (Manual) 5 % 02/10/24 15:48 Absolute Eosinophils 5.3 10^3/cmm (0.0-0.7) H 02/10/24 15:48 Basophils (Manual) 0.0 % 02/10/24 15:48 Absolute Basophils 0.0 10^3/cmm (0.0-0.2) 02/10/24 15:48 Metamyelocytes 3.0 % 02/10/24 15:48 Myelocytes 14.0 % 02/10/24 15:48 Promyelocytes 21.0 % 02/10/24 15:48 Nucleated RBCs 3.0 /100WBC (0-1) H 02/10/24 15:48 Blast Cells 3 % (0-0) H* 02/10/24 15:48 Platelet Estimate Decreased (Normal) 02/10/24 15:48 Polychromasia 1+ H 02/10/24 15:48 Macrocytosis 1+ H 02/10/24 15:48 Sodium 142 mmol/L (136-145) 02/10/24 Unknown Potassium 3.1 mmol/L (3.5-5.1) L 02/10/24 Unknown Chloride 100 mmol/L (98-107) 02/10/24 Unknown Carbon Dioxide 30 mmol/L (22-29) H 02/10/24 Unknown Anion Gap 15.1 (5-19) 02/10/24 Unknown BUN 15 mg/dL (8-23) 02/10/24 Unknown Creatinine 1.9 mg/dL (0.7-1.2) H 02/10/24 Unknown GFR Calculation Not Reportable 02/10/24 Unknown Glucose 105 mg/dL (65-115) 02/10/24 Unknown Calculated Osmolality 295 mOsm/kg (285-295) 02/10/24 Unknown Lactic Acid 2.2 mmol/L (0.5-2.2) 02/10/24 15:48 Lactic Acid (Sepsis) 1.5 mmol/L (0.5-2.2) 02/10/24 18:45 Uric Acid 12.5 mg/dL (3.4-7.0) H 02/10/24 15:48 Calcium 8.9 mg/dL (8.5-10.5) 02/10/24 Unknown Total Bilirubin 0.3 mg/dL (0.15-1.2) 02/10/24 Unknown AST 28 U/L (0-40) 02/10/24 Unknown ALT 23 U/L (0-41) 02/10/24 Unknown Alkaline Phosphatase 82 U/L (40-130) 02/10/24 Unknown Lactate Dehydrogenase 556 U/L (135-225) H 02/10/24 15:48 Total Protein 7.3 g/dL (6.6-8.7) 02/10/24 Unknown Albumin 3.6 g/dL (3.5-5.2) 02/10/24 Unknown Globulin 3.7 g/dL (1.3-4.6) 02/10/24 Unknown Urine Color Yellow (Yellow) 02/10/24 19:29 Urine Appearance Slightly cloudy (CLEAR) 02/10/24 19: Urine pH 6.5 (5-7) 02/10/24 19:29 Ur Specific [place] 1.010 (1.005-1.030) 02/10/24 19:29 Urine Protein 2+ (Negative) H 02/10/24 19:29 Urine Glucose (UA) Norm (Normal) 02/10/24 19: Urine Ketones Negative (Negative) 02/10/24 19:29 Urine Blood 3+ (Negative) H 02/10/24 19:29 Urine Nitrate Negative (Negative) 02/10/24 19: Urine Bilirubin Neg (Negative) 02/10/24 19:29 Urine Urobilinogen Norm mg/dL (Negative) 02/10/24 19:29 Ur Leukocyte Esterase 1+ (Negative) H 02/10/24 19:29 Urine RBC 25-40 /hpf (0-2) H 02/10/24 19:29 Urine WBC 0-4 /hpf (0-5) H 02/10/24 19:29 Ur Squamous Epith Cells None /hpf (0-5) 02/10/24 19:29 Amorphous Sediment Not Reportable 02/10/24 19:29 Urine Bacteria 1+ /hpf (NONE) H 02/10/24 19:29 Urine Mucus None /hpf 02/10/24 19:29 Ur Oval Fat Bodies 2+ /hpf 02/10/24 19:29 Discharge Plan Discharge Patient Disposition: Home Clinical Impression: Leukocytosis Qualifiers: Leukocytosis type: unspecified Qualified Code(s): D72.829 - Elevated white blood cell count, unspecified Condition: Stable Prescriptions: New allopurinol 300 mg tablet 300 mg PO DAILY Qty: 30 0RF No Action folic acid 400 mcg tablet 400 mcg PO QAM turmeric root extract 500 mg capsule 500 mg PO QAM omeprazole 40 mg capsule,delayed release(DR/EC) 40 mg PO QAM multivitamin Tablet 1 tab PO DAILY ferrous sulfate [iron] 325 mg (65 mg iron) Tablet 325 mg PO BEDTIME psyllium husk [Fiber-Caps (psyllium husk)] 0.52 gram Capsule 0.52 g PO QAM Probiotic Blend 2 billion cell-50 mg Capsule 1 cap PO QAM simvastatin 40 mg tablet 40 mg PO BEDTIME tamsulosin 0.4 mg capsule 0.4 mg PO BEDTIME hydrochlorothiazide 25 mg tablet 25 mg PO QAM Discharge Orders: Discharge ED (Routine); Ordered 02/10/24 Ordered By: Ghada Kruger Referrals: Aurelio Robertson MD [Hospitalist] - 02/14/24 3:30 pm Braden Castro DO [Primary Care Provider] - 4-7 days Discharge Diet: Usual diet Discharge Activity: Increase activity as tolerated Patient Instructions: Opioid Safety, Pain Management Activity Restrictions/Additional Instructions: Please drink copious amounts of fluids over the weekend. Take the allopurinol. If you develop fever or worsening pain return to the emergency room. Thank you for choosing [facility] for your healthcare needs today. Please realize this is an emergency room and that we are providing you with a medical screening exam and this may not be complete and all inclusive of all the testing and or work up that you may need to determine your ailment or severity of your illness. You have been screened and evaluated and felt safe for discharge. Health conditions do change or evolve sometimes and as such it is important that you follow up with your Primary Doctor to be re checked, 3-5 days is a general good time frame for follow up. You are always welcome to return to the ED for re assessment if your symptoms are worsening or you have new concerns Coding Level of Care Code ED Tin Assorter for Chg Fwd Documented by User: Ghada Kruger MD 02/10/24 21:24 HPI - General Adult 2 General: Chief complaint: General Medical Stated complaint: [facility] sent said is septic Time Seen by Provider: 02/10/24 12:53 Review of Systems 2 Narrative: Constitutional symptoms: Negative except as documented in HPI. Skin symptoms: Negative except as documented in HPI. Eye symptoms: Negative except as documented in HPI. ENMT symptoms: Negative except as documented in HPI. Respiratory symptoms: Negative except as documented in HPI. Cardiovascular symptoms: Negative except as documented in HPI. Gastrointestinal symptoms: Negative except as documented in HPI. Genitourinary symptoms: Negative except as documented in HPI. Musculoskeletal symptoms: Negative except as documented in HPI. Neurologic symptoms: Negative except as documented in HPI. Psychiatric symptoms: Negative except as documented in HPI. Endocrine symptoms: Negative except as documented in HPI. PFSH ED 2 PFSH: Medical History Intra-abdominal lymphadenopathy Left ureteral calculus Elevated PSA HTN (hypertension) GERD (gastroesophageal reflux disease) Hyperlipidemia Surgical History History of lithotripsy Hx of inguinal hernia repair Hx of shoulder surgery Family History Mother , at age 74 No problems noted. Father , at age 74 Stroke Social History Smoking and tobacco/nicotine status: never used tobacco/nicotine Alcohol intake: current Alcohol intake frequency: 3 or more drinks per day Marital status: Current occupational status: retired Physical Exam 2 Narrative: EXAM NARRATIVE: General: Alert, no acute distress. Skin: Warm, dry. Head: Normocephalic, atraumatic. Neck: Supple, trachea midline. Eye: Extraocular movements are intact. Ears, nose, mouth and throat: mucosa moist. Cardiovascular: Regular, Normal peripheral perfusion. Respiratory: Lungs are clear to auscultation, respirations are non-labored, breath sounds are equal, Symmetrical chest wall expansion. Gastrointestinal: Soft, Nontender, Non distended, Normal bowel sounds. Musculoskeletal: Normal ROM, no deformity. Neurological: Alert and oriented, No focal neurological deficit observed. Psychiatric: Cooperative, appropriate mood & affect. Course 2 Vital Signs: Vital signs: Vital Signs Temperature 97.9 F 02/10/24 12:21 Pulse Rate 118 H 02/10/24 20:50 Respiratory Rate 18 02/10/24 12:21 Blood Pressure 132/62 02/10/24 22:38 Pulse Oximetry 94 02/10/24 20:50 Oxygen Delivery Me thod Room Air 02/10/24 18:30 MDM - General Adult Medical Decision Making Patient care was transitioned to pa at shift change. Awaiting urinalysis and CT scan. Consultation: I spoke with Dr. Robertson with hematology/oncology. He recommends good hydration. We checked a uric acid which was 12. So replaced him on allopurinol. First dose here with a dose of IV fluids. He will see the patient on Wednesday. CT of the abdomen pelvis with contrast: Patient does have a stent in some stones in the kidneys. Some hydronephrosis. Urinalysis though was relatively clear. Hematuria as expected but does not appear infected. He has no infectious symptoms. His creatinine was up a little bit over baseline. Fluids have been given. Lab review: Patient has leukocytosis. He is at 105. 3 blasts. I discussed these findings with hematology and recommends allopurinol and follow-up in clinic. Uric acid was checked which is elevated at 12. Renal function is up slightly from previous from 1.2 to 1.3 to 1.9 today. 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 Elevated uric acid Acute on chronic renal insufficiency -2 L normal saline bolus, 300 mg allopurinol - Discharged home - Discussed findings and plan with patient. Answered any questions. - All laboratory values were reviewed and interpreted personally by myself, the ER physician - All imaging was reviewed and interpreted personally by myself, the ER physician. - Evaluation and treatment of this problem were appropriate in the emergency setting Lab Data 02/10/24 15:48 02/10/24 Unknown Radiology Impressions Chest X-Ray 02/10/24 15:36 IMPRESSION: No acute plain radiographic cardiopulmonary abnormality. Metallic object over the left upper quadrant likely external to the patient, versus ingested foreign body, please correlate clinically or with KUB evaluation as clinically warranted. Abdomen/Pelvis CT 02/10/24 17:09 IMPRESSION: 1. Mild left hydronephrosis may be an expected finding in the setting of nephroureteral stent . Short-term sonographic follow-up a few hours after emptying the bladder suggested to ensure resolution. 2. However, there is elevation diffuse left urothelial thickening which could indicate ureteritis and pyelitis. Urinalysis correlation recommended. 3. Nonobstructive renal stones. 4. Moderate splenomegaly has progressed from 08/04/2023. Multiple mildly -moderately enlarged retroperitoneal and central mesenteric lymph nodes. The findings could indicate lymphoproliferative disease , lymphoma or inflammatory etiology. Laboratory Results WBC 105.78 10^3/uL (3.29-11.43) H* 02/10/24 15:48 RBC 4.36 10^6/uL (3.85-5.65) 02/10/24 15:48 Hgb 12.60 g/dL (11.27-16.99) 02/10/24 15:48 Hct 39.3 % (37-53) 02/10/24 15:48 MCV 90.1 fl (82-101) 02/10/24 15:48 MCH 28.9 pg (27-33) 02/10/24 15:48 MCHC 32.1 g/dL (30-55) 02/10/24 15:48 RDW 19.9 % (12.1-15.1) H 02/10/24 15:48 Plt Count 120 10^3/cmm (157-399) L 02/10/24 15:48 MPV 10.3 fL (7.4-10.4) 02/10/24 15:48 Total Counted 100 (0-100) 02/10/24 15:48 Atypical Lymphs % 2.0 % (0-5) 02/10/24 15:48 Absolute Neutrophils 39.1 10^3/cmm (1.4-6.5) H 02/10/24 15:48 Segmented Neutrophils 29 % 02/10/24 15:48 Abs Segm Neuts (Man) 30.7 10/cmm (1.6-7.1) H 02/10/24 15:48 Band Neutrophils 8.0 % 02/10/24 15:48 Abs Band Neuts (Man) 8.5 10^3/cmm (0.0-1.2) H 02/10/24 15:48 Absolute Lymphocytes 7.4 10^3/cmm (1.2-3.4) H 02/10/24 15:48 Lymphocytes (Manual) 5 % 02/10/24 15:48 Monocytes (Manual) 10.0 % 02/10/24 15:48 Absolute Monocytes 10.6 10^3/cmm (0.1-0.6) H 02/10/24 15:48 Eosinophils (Manual) 5 % 02/10/24 15:48 Absolute Eosinophils 5.3 10^3/cmm (0.0-0.7) H 02/10/24 15:48 Basophils (Manual) 0.0 % 02/10/24 15:48 Absolute Basophils 0.0 10^3/cmm (0.0-0.2) 02/10/24 15:48 Metamyelocytes 3.0 % 02/10/24 15:48 Myelocytes 14.0 % 02/10/24 15:48 Promyelocytes 21.0 % 02/10/24 15:48 Nucleated RBCs 3.0 /100WBC (0-1) H 02/10/24 15:48 Blast Cells 3 % (0-0) H* 02/10/24 15:48 Platelet Estimate Decreased (Normal) 02/10/24 15:48 Polychromasia 1+ H 02/10/24 15:48 Macrocytosis 1+ H 02/10/24 15:48 Sodium 142 mmol/L (136-145) 02/10/24 Unknown Potassium 3.1 mmol/L (3.5-5.1) L 02/10/24 Unknown Chloride 100 mmol/L (98-107) 02/10/24 Unknown Carbon Dioxide 30 mmol/L (22-29) H 02/10/24 Unknown Anion Gap 15.1 (5-19) 02/10/24 Unknown BUN 15 mg/dL (8-23) 02/10/24 Unknown Creatinine 1.9 mg/dL (0.7-1.2) H 02/10/24 Unknown GFR Calculation Not Reportable 02/10/24 Unknown Glucose 105 mg/dL (65-115) 02/10/24 Unknown Calculated Osmolality 295 mOsm/kg (285-295) 02/10/24 Unknown Lactic Acid 2.2 mmol/L (0.5-2.2) 02/10/24 15:48 Lactic Acid (Sepsis) 1.5 mmol/L (0.5-2.2) 02/10/24 18:45 Uric Acid 12.5 mg/dL (3.4-7.0) H 02/10/24 15:48 Calcium 8.9 mg/dL (8.5-10.5) 02/10/24 Unknown Total Bilirubin 0.3 mg/dL (0.15-1.2) 02/10/24 Unknown AST 28 U/L (0-40) 02/10/24 Unknown ALT 23 U/L (0-41) 02/10/24 Unknown Alkaline Phosphatase 82 U/L (40-130) 02/10/24 Unknown Lactate Dehydrogenase 556 U/L (135-225) H 02/10/24 15:48 Total Protein 7.3 g/dL (6.6-8.7) 02/10/24 Unknown Albumin 3.6 g/dL (3.5-5.2) 02/10/24 Unknown Globulin 3.7 g/dL (1.3-4.6) 02/10/24 Unknown Urine Color Yellow (Yellow) 02/10/24 19: Urine Appearance Slightly cloudy (CLEAR) 02/10/24 19: Urine pH 6.5 (5-7) 02/10/24 19: Ur Specific [place] 1.010 (1.005-1.030) 02/10/24 19: Urine Protein 2+ (Negative) H 02/10/24 19: Urine Glucose (UA) Norm (Normal) 02/10/24 19: Urine Ketones Negative (Negative) 02/10/24: Urine Blood 3+ (Negative) H 02/10/24 19: Urine Nitrate Negative (Negative) 02/10/24 19: Urine Bilirubin Neg (Negative) 02/10/24: Urine Urobilinogen Norm mg/dL (Negative) 02/10/24 19: Ur Leukocyte Esterase 1+ (Negative) H 02/10/24 19:29 Urine RBC 25-40 /hpf (0-2) H 02/10/24 19:29 Urine WBC 0-4 /hpf (0-5) H 02/10/24 19: Ur Squamous Epith Cells None /hpf (0-5) 02/10/24 19: Amorphous Sediment Not Reportable 02/10/24 19:29 Urine Bacteria 1+ /hpf (NONE) H 02/10/24 19:29 Urine Mucus None /hpf 02/10/24 19:29 Ur Oval Fat Bodies 2+ /hpf 02/10/24 19:29 All radiology interpretation(s) finalized by discharge Discharge Plan Discharge Patient Disposition: Home Clinical Impression: Leukocytosis Qualifiers: Leukocytosis type: unspecified Qualified Code(s): D72.829 - Elevated white blood cell count, unspecified Condition: Stable Prescriptions: New allopurinol 300 mg tablet 300 mg PO DAILY Qty: 30 0RF No Action folic acid 400 mcg tablet 400 mcg PO QAM turmeric root extract 500 mg capsule 500 mg PO QAM omeprazole 40 mg capsule,delayed release(DR/EC) 40 mg PO QAM multivitamin Tablet 1 tab PO DAILY ferrous sulfate [iron] 325 mg (65 mg iron) Tablet 325 mg PO BEDTIME psyllium husk [Fiber-Caps (psyllium husk)] 0.52 gram Capsule 0.52 g PO QAM Probiotic Blend 2 billion cell-50 mg Capsule 1 cap PO QAM simvastatin 40 mg tablet 40 mg PO BEDTIME tamsulosin 0.4 mg capsule 0.4 mg PO BEDTIME hydrochlorothiazide 25 mg tablet 25 mg PO QAM Discharge Orders: Discharge ED (Routine); Ordered 02/10/24 Ordered By: Ghada Kruger Referrals: Aurelio Robertson MD [Hospitalist] - 02/14/24 3:30 pm Braden Castro DO [Primary Care Provider] - 4-7 days Discharge Diet: Usual diet Discharge Activity: Increase activity as tolerated Patient Instructions: Opioid Safety, Pain Management Activity Restrictions/Additional Instructions: Please drink copious amounts of fluids over the weekend. Take the allopurinol. If you develop fever or worsening pain return to the emergency room. Thank you for choosing [facility] for your healthcare needs today. Please realize this is an emergency room and that we are providing you with a medical screening exam and this may not be complete and all inclusive of all the testing and or work up that you may need to determine your ailment or severity of your illness. You have been screened and evaluated and felt safe for discharge. Health conditions do change or evolve sometimes and as such it is important that you follow up with your Primary Doctor to be re checked, 3-5 days is a general good time frame for follow up. You are always welcome to return to the ED for re assessment if your symptoms are worsening or you have new concerns Coding Level of Care Code ED Tin Assorter for Joanna Mark
--- NOTE | 2024-02-10 15:55 | ECG_ITS ---
[facility] Test Date: 2024-02-10 Pat Name: Milton Arthur Department: Room: Gender: Male Investigator Narcotics: : 1940 Requested By: Cristiano Goncalves Order Number: [id number] Raissa MD: Pedro Luis Guidry M.D. Measurements Intervals [place] Rate: 107 P: 47 IA: 178 QRS: 49 QRSD: 89 T: 22 QT: 329 QTc: 440 Interpretive Statements SINUS TACHYCARDIA with poor R wave progression ABNORMAL RHYTHM ECG Compared to ECG 05/01/2022 13:58:22 Sinus rhythm no longer present Electronically Signed On 02-11-2024 13:38:24 CDT by Pedro Luis Guidry M.D. [email or web address]
[2024-02-10 16:02] LABS: Hematocrit 39.3 % (37-53); Mean Corpuscular HGB Conc 32.1 g/dL (30-55); Mean Corpuscular Hemoglobin 28.9 pg (27-33); Mean Corpuscular Volume 90.1 fl (82-101); Mean Platelet Volume 10.3 fL (7.4-10.4); Platelet Count 120 10^3/cmm (157-399); Red Blood Count 4.36 10^6/uL (3.85-5.65); Red Cell Distribution Width 19.9 % (12.1-15.1)
[2024-02-10 16:36] LABS: Alanine Aminotransferase 23 U/L (0-41); Albumin Level 3.6 g/dL (3.5-5.2); Alkaline Phosphatase 82 U/L (40-130); Anion Gap 15.1 (5-19); Aspartate Amino Transferase 28 U/L (0-40); Blood Urea Nitrogen 15 mg/dL (8-23); Calcium 8.9 mg/dL (8.5-10.5); Carbon Dioxide 30 mmol/L (22-29); Chloride 100 mmol/L (98-107); Creatinine Clr Calc Pharmacy 23.8718; Globulin 3.7 g/dL (1.3-4.6); Glucose 105 mg/dL (65-115); Osmolality Calculated 295 mOsm/kg (285-295); Potassium 3.1 mmol/L (3.5-5.1); Sodium 142 mmol/L (136-145); Total Bilirubin 0.3 mg/dL (0.15-1.2); Total Protein 7.3 g/dL (6.6-8.7)
[2024-02-10 17:05] LABS: Lactic Sepsis W/Reflex 2.2 mmol/L (0.5-2.2)
--- NOTE | 2024-02-10 17:09 | CTR_ITS ---
PROCEDURE INFORMATION: Exam: CT Abdomen And Pelvis With Contrast Exam date and time: 02/10/2024 6:10 PM Age: 83 years old Clinical indication: Abnormal findings; Abnormal lab test; abdominal pain. TECHNIQUE: Imaging protocol: Computed tomography of the abdomen and pelvis with contrast. Radiation optimization: All CT scans at this facility use at least one of these dose optimization techniques: automated exposure control; mA and/or kV adjustment per patient size (includes targeted exams where dose is matched to clinical indication); or iterative reconstruction. Contrast material: OMNI 350; Contrast volume: 100 ml; Contrast route: INTRAVENOUS (IV); COMPARISON: CT abdomen pelvis w con* [id number] 08/04/2023 12:55 PM RADIATION DOSE METRICS: Total DLP (mGy-cm): 336 FINDINGS: Liver: Normal. No mass. Gallbladder and bile ducts: Normal. No calcified stones. No ductal dilation. Pancreas: Normal. No ductal dilation. Spleen: Mmvo-ev-xunugguf splenomegaly up to 14 cm in length. Adrenal glands: Normal. No mass. Kidneys and ureters: A few stones are present in both kidneys ranging from 1-6 mm. A few cysts are present bilateral including 2 larger right renal cysts up to 1.6 cm. Mild fullness of the right renal collecting system and mild left hydronephrosis is noted. Mild diffuse urothelial thickening especially in the left pelvis and calices. A left nephroureteral stent is present. Stomach and bowel: Multiple sigmoid and descending colonic diverticuli. Moderate amount of colonic stool. Appendix: No evidence of appendicitis. Intraperitoneal space: Unremarkable. No free air. No significant fluid collection. Vasculature: [id number] atherosclerotic calcification of the abdominal aorta with at least mild stenosis of the right greater than left renal artery ostia. Lymph nodes: Mildly-moderately enlarged retroperitoneal aortocaval and para-aortic nodes up to 1.8 cm, slightly increased from 08/04/2023 extending from the upper abdomen to the bifurcation level. Mildly enlarged central mesenteric nodes are again noted. No other adenopathy. Urinary bladder: The bladder is moderately distended without wall thickening. Reproductive: Prostate is mildly-moderately enlarged. Bones/joints: Moderate multilevel degenerative lumbar spondylosis. Chronic healed fracture of the posterior left 10th rib. Soft tissues: A small fluid collection likely seroma measuring 1.6 x 1.9 cm in the right lower pelvis near the inguinal canal is unchanged (image 65 series 3). CT/CT abdomen pelvis w con* [id number] IMPRESSION: 1. Mild left hydronephrosis may be an expected finding in the setting of nephroureteral stent . Short-term sonographic follow-up a few hours after emptying the bladder suggested to ensure resolution. 2. However, there is elevation diffuse left urothelial thickening which could indicate ureteritis and pyelitis. Urinalysis correlation recommended. 3. Nonobstructive renal stones. 4. Moderate splenomegaly has progressed from 08/04/2023. Multiple mildly -moderately enlarged retroperitoneal and central mesenteric lymph nodes. The findings could indicate lymphoproliferative disease , lymphoma or inflammatory etiology.
[2024-02-10 17:38] LABS: Absolute Eosinophils 5.3 10^3/cmm (0.0-0.7); Absolute Neutrophil 39.1 10^3/cmm (1.4-6.5); Absolute Segmented Neutrophil 30.7 10/cmm (1.6-7.1); Band Neutrophils Absolute 8.5 10^3/cmm (0.0-1.2); Eosinophils 5 %; Lymphocytes 5 %; Lymphocytes Absolute 7.4 10^3/cmm (1.2-3.4); Macrocytosis 1+; Monocytes Absolute 10.6 10^3/cmm (0.1-0.6); Platelet Estimate Decreased (Normal); Polychromasia 1+; Segmented Neutrophils 29 %; Slide Review Slide Review Perform; Total Cells Counted 100 (0-100)
[2024-02-10 17:39] LABS: Blastocytes 3 % (0-0)
[2024-02-10 17:40] LABS: White Blood Count 105.78 10^3/uL (3.29-11.43)
[2024-02-10 17:47] LABS: Lactate Dehydrogenase 556 U/L (135-225)
[2024-02-10] MEDS: iohexol 350 mg/mL 500 mL Btl (per mL) IV (18:13)
[2024-02-10 18:38] LABS: Reflex Lactate Order REFLEX LACTIC ORDERD
--- NOTE | 2024-02-10 18:49 | PC.NURSE ---
Assumed care from Adwoa PERAZA at this time.
[2024-02-10 19:13] LABS: Lactic Acid level (Lactate) 1.5 mmol/L (0.5-2.2)
[2024-02-10 19:37] LABS: Add Urine Microscopic? YES; Bilirubin Urine Neg (Negative); Blood Urine 3+ (Negative); Glucose Urine UA Norm (Normal); Ketones Urine Negative (Negative); Leukocyte Esterase Urine 1+ (Negative); Nitrate Urine Negative (Negative); Protein Urine 2+ (Negative); Urine Appearance Slightly Cloudy (CLEAR); Urine Color Yellow (Yellow); Urobilinogen Urine Norm (Negative); pH Urine 6.5 (5-7)
[2024-02-10 19:47] LABS: Bacteria Urine 1+ /hpf; RBC Urine 25-40 /hpf (0-2); WBC Urine 0-4 /hpf (0-5)
[2024-02-10 19:48] LABS: Add Urine Culture? Yes; Oval Fat Bodies Urine 2+ /hpf
[2024-02-10] MEDS: sodium chloride 0.9% 1,000 ML 999 ML IV ×2 (19:48→21:54)
[2024-02-10] MEDS: allopurinol 100 mg Tablet PO (19:49)
[2024-02-10 19:52] LABS: Uric Acid 12.5 mg/dL (3.4-7.0)
--- NOTE | 2024-02-10 20:52 | PC.NURSE ---
Patient was updated on current patient status, waiting for consult with another physician per Dr Kruger.
[2024-02-10] MEDS: allopurinol 300 mg Tablet PO (21:54)
== END 2024-02-10 22:41 | disposition home or self-care (01) ==
PROVIDERS: Family Medicine; Emergency Provider Emergency Medicine; PCP Family Medicine
DX: D72.829 Elevated white blood cell count, unspecified (principal); I10 Essential (primary) hypertension; E78.5 Hyperlipidemia, unspecified
CPT/HCPCS: 36415; 71045; 74177; 80053; 81001; 83605; 83615; 84550; 85007; 85025; 87040; 87086; 93005; 96360; 96361; 99285; J7030; Q9967

== ENCOUNTER 2024-02-14 14:50 | Oncology outpatient (recurring) (ONCR) | payer MEDICARE, SELFPAY ==
[2024-02-14 15:12] VITALS: BP 112/67; PULSE 128; RESP 17; TEMP 36.3; O2SAT 95
[2024-02-14 15:26] LABS: Mean Corpuscular HGB Conc 31.9 g/dL (30-55); Mean Corpuscular Hemoglobin 28.8 pg (27-33); Mean Corpuscular Volume 90.2 fl (82-101); Mean Platelet Volume 10.8 fL (7.4-10.4); Platelet Count 91 10^3/cmm (157-399); Red Blood Count 3.99 10^6/uL (3.85-5.65); Red Cell Distribution Width 20.5 % (12.1-15.1)
[2024-02-14] MEDS: sodium chloride 0.9% 1,000 ML 999 ML IV (15:27)
[2024-02-14 15:54] LABS: Alanine Aminotransferase 23 U/L (0-41); Albumin Level 3.5 g/dL (3.5-5.2); Alkaline Phosphatase 127 U/L (40-130); Anion Gap 19.2 (5-19); Aspartate Amino Transferase 35 U/L (0-40); Blood Urea Nitrogen 23 mg/dL (8-23); Calcium 9.2 mg/dL (8.5-10.5); Carbon Dioxide 29 mmol/L (22-29); Chloride 94 mmol/L (98-107); Globulin 3.8 g/dL (1.3-4.6); Glucose 137 mg/dL (65-115); Lactate Dehydrogenase 762 U/L (135-225); Osmolality Calculated 294 mOsm/kg (285-295); Potassium 3.2 mmol/L (3.5-5.1); Sodium 139 mmol/L (136-145); Total Bilirubin 0.5 mg/dL (0.15-1.2); Total Protein 7.3 g/dL (6.6-8.7); Uric Acid 8.8 mg/dL (3.4-7.0)
[2024-02-14 16:59] LABS: Slide Review Slide Review Perform; White Blood Count 158.34 10^3/uL (3.29-11.43)
[2024-02-14 17:00] LABS: Absolute Eosinophils 6.3 10^3/cmm (0.0-0.7); Absolute Segmented Neutrophil 34.8 10/cmm (1.6-7.1); Band Neutrophils Absolute 4.8 10^3/cmm (0.0-1.2); Eosinophils 4 %; Lymphocytes 16 %; Lymphocytes Absolute 28.5 10^3/cmm (1.2-3.4); Monocytes Absolute 41.2 10^3/cmm (0.1-0.6); Segmented Neutrophils 22 %; Total Cells Counted 100 (0-100)
[2024-02-14 17:01] LABS: Blastocytes 9 % (0-0)
[2024-02-14 17:02] LABS: Absolute Neutrophil 39.6 10^3/cmm (1.4-6.5); Anisocytosis 1+; Platelet Estimate Decreased (Normal); Poikilocytosis 1+
[2024-02-14 17:03] LABS: LAB Peripheral Smear Sent for Review
[2024-02-14 17:10] VITALS: BP 132/73; PULSE 111; RESP 16; TEMP 37; O2SAT 92
--- NOTE | 2024-02-14 17:11 | PC.NURSE ---
After hydration infused, Dr. Robertson came back to infusion area and spoke with pt regarding his elevated white count and poor kidney function. It was recommended by Dr. Robertson that pt go to E.R. to be transferred for immediate in pt tx. Pt voiced understanding and left infusion area to go to E.R. with family members/lc
--- NOTE | 2024-02-14 19:59 | ECG_ITS ---
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 Measurements Intervals [place] Rate: 113 P: 58 IL: 178 QRS: 74 QRSD: 98 T: 46 QT: 326 QTc: 447 Interpretive Statements SINUS TACHYCARDIA Poor R wave progression POSSIBLE LEFT ATRIAL ENLARGEMENT [-0.1mV P-WAVE IN V1/V2] ABNORMAL RHYTHM ECG Compared to ECG 02/10/2024 15:55:00 Poor R-wave progression no longer present Electronically Signed On 02-17-2024 0:05:05 CDT by Aylin Minor M.D. [id number]
== END 2024-02-20 23:59 | disposition home or self-care (01) ==
PROVIDERS: PCP Family Medicine; Visit Provider Internal Medicine Medical Oncology
DX: Z53.9 Procedure and treatment not carried out, unspecified reason (principal)
CPT/HCPCS: 80053; 83615; 84550; 85007; 85025; 88374; 93005; 99205; J7030

== ENCOUNTER 2024-02-14 17:16 | Emergency (ER) | payer MEDICARE, SELFPAY ==
[2024-02-14 17:50] VITALS: BP 125/69; PULSE 119; RESP 18; TEMP 36.8; O2SAT 96; BMI 18.8
--- NOTE | 2024-02-14 18:32 | ED_ITS ---
HPI - Recheck/Abnormal Lab/Rx General: Chief Complaint: Recheck/Abnormal Lab/Rx Stated Complaint: Dr. Robertson sent to be transfered to [facility] Time Seen by Provider: 02/14/24 18:07 History of Present Illness: Patient sent here by Dr. 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 Dr. Robertson noted patient's white blood cell count to be extremely elevated and his creatinine increasing. He was seen by Dr. Robertson today. And had also had labs repeated today his white blood cell count was 158,000 up from 105,004 days ago, this included 9 blasts up from 3 blasts, BUN/creatinine was 23 and 3.1 up from 15 and 1.9, lactate dehydrogenase 762 up from 556, upon talking to the patient he complains of overall body aches and not being able to eat or drink much of anything in the last 4 days. Review of Systems General: Reports: 10 or more systems reviewed and unremarkable except in HPI and below PFSH ED PFSH: Medical History Degenerative arthritis History of colitis (07/2023) Intra-abdominal lymphadenopathy Left ureteral calculus Elevated PSA HTN (hypertension) GERD (gastroesophageal reflux disease) Hyperlipidemia Surgical History History of colonoscopy (10/28/23) History of lithotripsy (06/29/22) Hx of inguinal hernia repair Hx of shoulder surgery Family History Mother , at age 74 No problems noted. Father , at age 74 Stroke Social History Smoking and tobacco/nicotine status: never used tobacco/nicotine Alcohol intake: current Alcohol intake frequency: 3 or more drinks per day Marital status: Current occupational status: retired Physical Exam Const: COMMON NORMALS: no acute distress, average body habitus, patient oriented x3, no limitations, healthy appearing, alert and well nourished HENMT: COMMON NORMALS: normocephalic, atraumatic, hearing grossly normal bilaterally, external ears normal, Normal external nose present and moist oral mucous membranes HEAD & SCALP: normocephalic and atraumatic NOSE: Normal external nose present EXTERNAL EAR: Yes external ears normal Neck/C-Spine: COMMON NORMALS: no JVD Chest: COMMONS NORMALS: normal inspection of the chest and normal palpation of entire chest wall Resp: COMMON NORMALS: normal respiratory effort, No retractions, No use of accessory muscles and clear to auscultation bilaterally AUSCULTATION: clear to auscultation bilaterally Cardio: COMMON NORMALS: no JVD, regular rhythm, S1 normal heart sound present, S2 normal heart sound present, No gallops present (Cardio), No clicks present (Cardio), No murmurs present (Cardio) and No rub (Cardio); negative for regular rate (Tachycardic) RATE: abnormal rate (Tachycardic) RHYTHM: regular rhythm HEART SOUNDS: S1 normal heart sound present and S2 normal heart sound present GI: COMMON NORMALS: Normal to inspection, nondistended, normoactive bowel sounds present, Soft to palpation, non-tender, No hepatosplenomegaly present and no masses PALPATION: Yes Soft to palpation and Yes No hepatosplenomegaly present Neuro: COMMON NORMALS: patient oriented x3 SENSORIUM/ORIENTATION: Yes alert Course Vital Signs: Vital signs: Vital Signs Temperature 98.3 F 02/14/24 17:50 Pulse Rate 104 H 02/14/24 20:46 Respiratory Rate 18 02/14/24 20:46 Blood Pressure 115/61 02/14/24 20:46 Pulse Oximetry 94 02/14/24 20:46 Oxygen Delivery Me thod Room Air 02/14/24 20:46 MDM - Recheck/Abnormal Lab/Rx Medical Decision Making Discussed case with Dr. Quiroz hospitalist at [facility] he is worried that this may be a an acute type of leukemia or transitioning into an acute due to the blasts he wants wander they are to go over the lab work, Dr. Geovanna viramontes is also worried about the blast for being an acute and therefore he said he would not be able to treat him there due to the possible need for inpatient treatment and/or leukapheresis and he recommends we ship him to [place] or [place]. Discussed risk of this with the patient and recommends [facility] transfer center was called,, Dr. Valery viramontes who will accept in consult only once and admitted to medicine. Dr. Barry internal medicine hospitalist was consulted who agreed to take the patient as inpatient but did want a lactic acid, INR, blood cultures, and then another 1 L bolus, CPK, hold the statin and start Vanco and Zosyn. Differential Diagnosis Unlikely encounter for medication refill, encounter for wound recheck, encounter for recheck of burn, encounter for removal of sutures or warfarin-induced coagulopathy Medical Records I reviewed the patient's medical records. Lab Data I reviewed the patient's lab results. Laboratory Results Phosphorus 3.0 mg/dL (2.5-4.5) 02/14/24 15:05 Magnesium 1.3 mg/dL (1.7-2.3) L 02/14/24 15:05 Urine Color Dark yellow (Yellow) 02/14/24 19:07 Urine Appearance Cloudy (CLEAR) A 02/14/24 19:07 Urine pH 6 (5-7) 02/14/24 19:07 Ur Specific [place] 1.010 (1.005-1.030) 02/14/24 19:07 Urine Protein 3+ (Negative) H 02/14/24 19:07 Urine Glucose (UA) Norm (Normal) 02/14/24 19:07 Urine Ketones 1+ (Negative) H 02/14/24 19:07 Urine Blood 3+ (Negative) H 02/14/24 19:07 Urine Nitrate Negative (Negative) 02/14/24 19:07 Urine Bilirubin Neg (Negative) 02/14/24 19:07 Urine Urobilinogen Norm mg/dL (Negative) 02/14/24 19:07 Ur Leukocyte Esterase 2+ (Negative) H 02/14/24 19:07 Urine RBC 40-50 /hpf (0-2) H 02/14/24 19:07 Urine WBC 15-25 /hpf (0-5) H 02/14/24 19:07 Ur Squamous Epith Cells 5-10 /hpf (0-5) H 02/14/24 19:07 Amorphous Sediment Not Reportable 02/14/24 19:07 Urine Bacteria 2+ /hpf (NONE) H 02/14/24 19:07 No radiology studies performed this visit Discharge Plan Discharge Patient Disposition: Xfer Short-Term Hosp Clinical Impression: Leukocytosis, Thrombocytopenia, Acute kidney insufficiency, Ureteral stent present Condition: Stable Referrals: Braden Castro DO [Primary Care Provider] - Coding Level of Care Code ED Rim [employer] 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
--- NOTE | 2024-02-14 18:48 | ECG_ITS ---
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 Measurements Intervals [place] Rate: 112 P: 52 SD: 152 QRS: 76 QRSD: 105 T: 57 QT: 332 QTc: 455 Interpretive Statements SINUS TACHYCARDIA POSSIBLE INFERIOR MYOCARDIAL INFARCTION , PROBABLY OLD [30 ms Q WAVE IN II/aVF] Poor R wave progression ABNORMAL RHYTHM ECG Compared to ECG 02/10/2024 15:55:00 Myocardial infarct finding now present Poor R-wave progression no longer present Electronically Signed On 02-15-2024 23:42:42 CDT by Aylin Minor M.D. [id number]
[2024-02-14 19:18] LABS: Add Urine Microscopic? YES; Bilirubin Urine Neg (Negative); Blood Urine 3+ (Negative); Glucose Urine UA Norm (Normal); Ketones Urine 1+ (Negative); Leukocyte Esterase Urine 2+ (Negative); Nitrate Urine Negative (Negative); Protein Urine 3+ (Negative); Urine Appearance Cloudy (CLEAR); Urine Color Dark Yellow (Yellow); Urobilinogen Urine Norm (Negative); pH Urine 6 (5-7)
[2024-02-14 19:21] LABS: Magnesium 1.3 mg/dL (1.7-2.3)
[2024-02-14 19:27] LABS: Add Urine Culture? Yes; Bacteria Urine 2+ /hpf; RBC Urine 40-50 /hpf (0-2); WBC Urine 15-25 /hpf (0-5)
[2024-02-14 20:13] VITALS: BP 143/65; PULSE 101; RESP 18; O2SAT 96
[2024-02-14 20:46] VITALS: BP 115/61; PULSE 104; RESP 18; O2SAT 94
[2024-02-14] MEDS: ondansetron 2 mg/ML SDV 2 mL 4 MG IVP (22:03)
[2024-02-14] MEDS: sodium chloride 0.9% 1,000 ML 999 ML IV ×2 (22:03→23:14)
[2024-02-14] MEDS: piperacillin-tazobactam 3.375 GM in sodium chloride 0.9% (plus) 50 ML IV (22:15)
[2024-02-14 22:36] LABS: Creatine Phosphokinase 28 U/L (39-308)
[2024-02-14 22:37] LABS: Lactic Sepsis W/Reflex 2.1 mmol/L (0.5-2.2)
[2024-02-14 22:43] LABS: INR 1.27 (0.8-1.2)
[2024-02-14] MEDS: vancomycin 1,000 MG in sodium chloride 0.9% 250 ML 250 MG IV (23:13)
[2024-02-14 23:21] VITALS: BP 144/81; PULSE 78; RESP 18; O2SAT 97
--- NOTE | 2024-02-14 23:21 | PC.NURSE ---
pt given ice chips at this time
--- NOTE | 2024-02-14 23:23 | PC.NURSE ---
pt was placed on 2L NC at this time d/t a o2 sat of 90%
[2024-02-15] VITALS (35 sets, daily range): BP systolic 98–135; BP diastolic 47–63; PULSE 84–132; RESP 15–26; O2SAT 80–100
[2024-02-15 00:05] LABS: Reflex Lactate Order REFLEX LACTIC ORDERD
[2024-02-15 01:32] LABS: Lactic Acid level (Lactate) 1.6 mmol/L (0.5-2.2)
[2024-02-15] MEDS: piperacillin-tazobactam 3.375 GM in sodium chloride 0.9% (plus) 50 ML IV (06:05)
--- NOTE | 2024-02-15 07:25 | CTR_ITS ---
PROCEDURE INFORMATION: Exam: CT Abdomen And Pelvis Without Contrast Exam date and time: 02/15/2024 7:50 AM Age: 83 years old Clinical indication: Pain and abnormal findings; Abnormal lab test; Elevated wbc; Abdominal pain; Flank; Lower; Prior surgery; Surgery date: 6+ months; Surgery type: Ureter stent; Additional info: Flank pain TECHNIQUE: Imaging protocol: Computed tomography of the abdomen and pelvis without contrast. Radiation optimization: All CT scans at this facility use at least one of these dose optimization techniques: automated exposure control; mA and/or kV adjustment per patient size (includes targeted exams where dose is matched to clinical indication); or iterative reconstruction. COMPARISON: CT abdomen pelvis w con* [id number] 02/10/2024 6:10 PM RADIATION DOSE METRICS: Total DLP (mGy-cm): 327.27 FINDINGS: Liver: Normal appearance of the liver. Gallbladder and biliary ducts: No calcified stones or ductal dilation. Pancreas: No ductal dilation. Spleen: Stable splenomegaly. Adrenal glands: Unremarkable. Kidneys and ureters: Unchanged left nephroureteral stent. Similar mild left hydronephrosis. Small nonobstructing bilateral renal calculi. Similar simple appearing bilateral renal cysts. Stomach and bowel: Colonic diverticulosis. Mild stranding and wall thickening about the ascending colon. No obstruction. Appendix: Normal appendix. Intraperitoneal space: No free air. No significant fluid collection. Vasculature: Unremarkable. Lymph nodes: Similar mesenteric and retroperitoneal lymphadenopathy. Urinary bladder: Distended. Reproductive: Moderate prostatomegaly. Bones/joints: Chronic left rib fractures. No acute fracture. Soft tissues: Unremarkable. CT/CT abdomen pelvis wo con [id number] IMPRESSION: 1. Mild stranding and wall thickening of the ascending colon, concerning for nonspecific colitis or diverticulitis. 2. Left nephroureteral stent in place with ongoing mild hydroureteronephrosis in the setting of a distended urinary bladder. 3. Unchanged splenomegaly and mesenteric and retroperitoneal lymphadenopathy. Findings may indicate lymphoma, lymphoproliferative disease, or inflammatory process. COMMENTS: Consistent with the [place] [employer]'s Incidental Findings Committee white paper (J Am Christofer Radiol 2018): Any incidental renal lesion less than 1 cm or classified as too small to characterize, or any incidental cystic renal lesion characterized as simple-appearing, is likely benign. No follow-up imaging is recommended for these lesions per consensus recommendations based on imaging criteria.
--- NOTE | 2024-02-15 07:26 | W.ED.RECABL ---
HPI - Recheck/Abnormal Lab/Rx General: Chief Complaint: Recheck/Abnormal Lab/Rx Stated Complaint: Dr. Robertson sent to be transfered to [facility] Time Seen by Provider: 02/14/24 18:07 History of Present Illness: Patient care was transitioned to tn at shift change this morning at 6 AM. 83-year-old man who I am familiar with as I saw him in the emergency room last week. He has a history of some leukocytosis and then had a kidney stone that required lithotripsy when he was out of town in [place] I believe. He had a stent placed. And then was at follow-up last week and labs were drawn he was found to have a white count of 105,000. Uric acid was 12 at that time. I consulted Dr. Robertson with hematology oncology who recommended starting allopurinol and he would plan on seeing the patient in clinic on Wednesday (yesterday). Lab work was repeated at that time and is found to have a white count of 150,000 with an increase in blasts and so he was sent back to the emergency room for plan transfer for further care by oncology which might include leukapheresis. Patient has been accepted to [facility], however there is a hold on beds and the wait could be anywhere from 12 to 48 hours. Patient has been complaining of malaise, lack of appetite. Review of Systems Narrative: Constitutional symptoms: Negative except as documented in HPI. Skin symptoms: Negative except as documented in HPI. Eye symptoms: Negative except as documented in HPI. ENMT symptoms: Negative except as documented in HPI. Respiratory symptoms: Negative except as documented in HPI. Cardiovascular symptoms: Negative except as documented in HPI. Gastrointestinal symptoms: Negative except as documented in HPI. Genitourinary symptoms: Negative except as documented in HPI. Musculoskeletal symptoms: Negative except as documented in HPI. Neurologic symptoms: Negative except as documented in HPI. Psychiatric symptoms: Negative except as documented in HPI. Endocrine symptoms: Negative except as documented in HPI. [facility] ED PFSH: Medical History Degenerative arthritis History of colitis (07/2023) Intra-abdominal lymphadenopathy Left ureteral calculus Elevated PSA HTN (hypertension) GERD (gastroesophageal reflux disease) Hyperlipidemia Surgical History History of colonoscopy (10/28/23) History of lithotripsy (06/29/22) Hx of inguinal hernia repair Hx of shoulder surgery Family History Mother , at age 74 No problems noted. Father , at age 74 Stroke Social History Smoking and tobacco/nicotine status: never used tobacco/nicotine Alcohol intake: current Alcohol intake frequency: 3 or more drinks per day Marital status: Current occupational status: retired Physical Exam Narrative: EXAM NARRATIVE: General: Alert, no acute distress. Skin: Warm, dry. Head: Normocephalic, atraumatic. Neck: Supple, trachea midline. Eye: Extraocular movements are intact. Ears, nose, mouth and throat: mucosa moist. Cardiovascular: Regular, Normal peripheral perfusion. Respiratory: Lungs are clear to auscultation, respirations are non-labored, breath sounds are equal, Symmetrical chest wall expansion. Gastrointestinal: Soft, Nontender, Non distended Musculoskeletal: Normal ROM, no deformity. Neurological: Alert and oriented, No focal neurological deficit observed. Psychiatric: Cooperative, appropriate mood & affect. Course Vital Signs: Vital signs: Vital Signs Temperature 98.3 F 02/14/24 17:50 Pulse Rate 132 H 02/15/24 05:56 Respiratory Rate 18 02/15/24 05:56 Blood Pressure 111/53 02/15/24 05:56 Pulse Oximetry 94 02/15/24 05:56 Oxygen Delivery Me thod Room Air 02/15/24 05:56 Oxygen Flow Rate 2 02/15/24 04:25 MDM - Recheck/Abnormal Lab/Rx Medical Decision Making Given the patient's lengthy stay in the emergency room I have consulted the hospitalist this morning. I have repeated lab work. CBC, comprehensive metabolic panel and a uric acid. Also at the request of the hospitalist ordered a repeat CT of the abdomen without contrast. Assessment and plan: Leukocytosis Blast crisis Acute on chronic renal failure ? Consultation to the hospitalist for further care. Lab Data Laboratory Results PT 16.30 SECONDS (12.1-14.9) H 02/14/24 22:07 INR 1.27 (0.8-1.2) H 02/14/24 22:07 Lactic Acid 2.1 mmol/L (0.5-2.2) 02/14/24 22:07 Lactic Acid (Sepsis) 1.6 mmol/L (0.5-2.2) 02/15/24 00:07 Phosphorus 3.0 mg/dL (2.5-4.5) 02/14/24 15:05 Magnesium 1.3 mg/dL (1.7-2.3) L 02/14/24 15:05 Creatine Kinase 28 U/L (39-308) L 02/14/24 22:07 Urine Color Dark yellow (Yellow) 02/14/24 19:07 Urine Appearance Cloudy (CLEAR) A 02/14/24 19:07 Urine pH 6 (5-7) 02/14/24 19:07 Ur Specific [place] 1.010 (1.005-1.030) 02/14/24 19:07 Urine Protein 3+ (Negative) H 02/14/24 19:07 Urine Glucose (UA) Norm (Normal) 02/14/24 19:07 Urine Ketones 1+ (Negative) H 02/14/24 19:07 Urine Blood 3+ (Negative) H 02/14/24 19:07 Urine Nitrate Negative (Negative) 02/14/24 19:07 Urine Bilirubin Neg (Negative) 02/14/24 19:07 Urine Urobilinogen Norm mg/dL (Negative) 02/14/24 19:07 Ur Leukocyte Esterase 2+ (Negative) H 02/14/24 19:07 Urine RBC 40-50 /hpf (0-2) H 02/14/24 19:07 Urine WBC 15-25 /hpf (0-5) H 02/14/24 19:07 Ur Squamous Epith Cells 5-10 /hpf (0-5) H 02/14/24 19:07 Amorphous Sediment Not Reportable 02/14/24 19:07 Urine Bacteria 2+ /hpf (NONE) H 02/14/24 19:07 No radiology studies performed this visit Discharge Plan Discharge Patient Disposition: Xfer Short-Term Hosp Clinical Impression: Leukocytosis, Thrombocytopenia, Acute kidney insufficiency, Ureteral stent present Condition: Stable Referrals: Braden Castro DO [Primary Care Provider] - Coding Level of Care Code ED Correspondence Dictator for g Deedee
--- NOTE | 2024-02-15 07:32 | P.CONIM_ITS ---
Providers/Reason For Consult 2 Consulting Physician/Specialty*: Dr. Sanabria/internal medicine Reason for Consult*: Severe leukocytosis, possible CML, awaiting bed at [facility] Requesting Physician: Dr. Garrison Primary Care Provider: Braden Castro DO History of Present Illness History of Present Illness Milton Arthur is a 83 year old male hypertension, GERD, hyperlipidemia, followed up with oncology on 02/13 with concerns for CML because of significant leukocytosis. As per the history, around 2 weeks ago he was admitted to the hospital in [place] with ureterolithiasis, requiring lithotripsy and stent placement. After returning home, he was sent to the ER here because his white blood cell count was found to be markedly elevated. Patient himself has been feeling terrible, with concerns for poor appetite, inability to eat or drink with concerns for nausea and vomiting. Patient was seen by oncology office yesterday and was sent to the ER for possible transfer to higher center given concerns for bone marrow biopsy and further treatment. Patient is currently awaiting bed at [facility]. Hospital service was consulted while patient is awaiting a bed. On examination patient laying comfortably in bed, chronically sick appearing, dehydrated with heart rate of more than 100, blood pressure of 120/60 saturating more than 95% on 2 L of oxygen supplementation. Prior to consultation repeat CBC and CMP was ordered today along with A1c, iron panel, lipid panel, TSH B12, procalcitonin and CT abdomen pelvis was requested given concerns for acute kidney injury and recent lithotripsy and stent placement. Review of Systems 2 General: Reports: 10 or more systems reviewed and unremarkable except in HPI and below Const: Denies: fever(s), chills, body aches, change in appetite, change in weight, malaise, night sweats, diaphoresis, change in sleep pattern, daytime sleepiness or snoring Eyes: Denies: change in vision, blurry vision, photophobia, eye discomfort or eye discharge ENMT: Denies: throat pain, enlarged tonsils, hoarseness, mouth pain, oral sores, dry mouth, tinnitus, nasal congestion or post nasal drip Card: Denies: chest pain, palpitations, irregular heart rhythm, edema, swelling of feet/ankles, lightheadedness, syncope, pre-syncope, dyspnea on exertion, orthopnea, leg pain with exertion or acrocyanosis Resp: Denies: dyspnea, productive cough, non-productive cough, wheezing, stridor, pain on inspiration, change in phlegm color, hemoptysis or chest congestion GI: Denies: abdominal pain, nausea, vomiting, hematemesis, coffee ground emesis, dysphagia, heartburn, diarrhea, constipation, bloating, GI cramping, change in bowel habits, pain on defecation, hematochezia or melena : Denies: flank pain, difficulty urinating, dysuria, urinary frequency, urinary urgency, urinary hesitancy, urinary dribbling, difficulty starting urination, change in urine stream, nocturia or hematuria Musc: Denies: neck pain, back pain, extremity pain, joint pain, joint swelling, joint redness, joint stiffness or limited range of motion Neuro: Denies: headache(s), numbness in extremities, weakness in extremities, sensory changes, lack of coordination, difficulty walking, frequent falls, dizziness, vertigo, confusion, Slurred speech present, difficulty communicating thoughts or seizure-like activity Psych: Denies: anxiety, depression, mood swings, panic attacks, hopelessness or irritability Endo: Denies: polyuria, polydipsia, tired all the time, cold intolerance, excessive sweating, flushing or heat intolerance Tr/Lymph: Denies: easy bruising or easy bleeding All/Imm: Denies: tongue swelling, facial swelling or acute wheezing Medications/Allergies Home Medications Medication Instructions Recorded Confirmed Last Taken Type folic acid 400 mcg tablet 400 mcg PO QAM 08/02/20 02/15/24 02/11/24 History turmeric root extract 500 mg 500 mg PO QAM 08/02/20 02/15/24 02/11/24 History capsule omeprazole 40 mg capsule,delayed 40 mg PO QAM 12/03/20 02/15/24 02/11/24 History release L.acidophil-L.casei-B.bifid-B.longum-FOS 1 cap PO QAM PRN STOMACH ISSUES 08/04/23 02/15/24 10/26/23 History 2 billion cell-50 mg capsule (Probiotic Blend) ferrous sulfate 325 mg (65 mg 325 mg PO BEDTIME 08/04/23 02/15/24 02/11/24 History iron) tablet (iron) hydrochlorothiazide 25 mg tablet 25 mg PO QAM 08/04/23 02/15/2402/10/24 History psyllium husk 0.52 gram capsule 0.52 g PO QAM 08/04/23 02/15/24 02/11/24 History (Fiber-Caps (psyllium husk)) simvastatin 40 mg tablet 40 mg PO BEDTIME 08/04/23 02/15/24 02/11/24 History tamsulosin 0.4 mg capsule 0.4 mg PO BEDTIME 08/04/23 02/15/24 02/11/24 History multivitamin 1 tab PO DAILY 08/18/23 02/15/24 02/11/24 History allopurinol 300 mg tablet 300 mg PO DAILY #30 tabs 02/10/24 02/15/24 02/12/24 Rx furosemide 40 mg tablet 40 mg PO DAILY 02/15/24 02/15/24 02/12/24 History potassium chloride 20 mEq 20 meq PO BID 02/15/24 02/15/24 02/12/24 History tablet,extended release(part/cryst) (Klor-Con M) Allergies Allergy/AdvReac Type Severity Reaction Status Date / Time No Known Allergies Allergy Verified 02/14/24 16:04 PFSH Acute 2 PFSH: Medical History Degenerative arthritis History of colitis (07/2023) Intra-abdominal lymphadenopathy Left ureteral calculus Elevated PSA HTN (hypertension) GERD (gastroesophageal reflux disease) Hyperlipidemia Surgical History History of colonoscopy (10/28/23) History of lithotripsy (06/29/22) Hx of inguinal hernia repair Hx of shoulder surgery Family History Mother , at age 74 No problems noted. Father , at age 74 Stroke Social History Smoking and tobacco/nicotine status: never used tobacco/nicotine Alcohol intake: current Alcohol intake frequency: 3 or more drinks per day Marital status: Current occupational status: retired Vitals/I&O/Wt Last Vital Signs Temp 98.3 F 02/14/24 17:50 Pulse 132 H 02/15/24 05:56 Resp 18 02/15/24 05:56 BP 111/53 02/15/24 05:56 Pulse Ox 94 02/15/24 05:56 O2 Del Method Room Air 02/15/24 05:56 O2 Flow Rate 2 02/15/24 04:25 02/14/24 02/15/24 02/15/24 22:59 06:59 14:59 Intake Total 2350 / 2350 Balance 2350 / 2350 Weight last 48 hrs Weight 49.895 kg Physical Exam 2 Narrative: General: No acute distress, AO x3, dehydrated, chronically sick appearing HEENT: PERRLA, pupils bilaterally equal and reactive Chest: Normal vesicular breath sounds, no added sounds, equal good air entry bilaterally CVS: S1-S2 regular, no murmurs, no tachycardia, no gallops, no rubs Abdomen: Soft, nontender, soft splenomegaly present, bowel sounds present Neuro: No focal deficits, no facial deformity, AO x3, power 5/5 in all limbs Quick SOFA Score: Respiratory Rate: 17 Blood Pressure: 124/59 [place] Coma Scale: 15 qSOFA Score: 0 If qSOFA score 2 or greater, continue: PaO2/FiO2 Ratio (mmHg): 312 Blood Pressure Mean: 80 Bilirubin (mg/dl): 0.5 Platelets (x10?/ml): 73 C reatinine (mg/dl): 2.6 SOFA Score: 5 Evaluation: Current stage of sepsis: sepsis Sepsis stage criteria used: [facility] Sep-1 and Sepsis-3 Crystalloid fluids: 30 mL/kg crystalloid fluids ordered and initiated within 3 hours Blood cultures ordered: Yes Possible source: GI tract/intra-abdominal Focused Exam: Vital signs: Pulse Resp BP Pulse Ox O2 Del Method O2 Flow Rate 02/15/24 12:30 106 H 17 124/59 98 02/15/24 12:15 111 H 21 H 119/50 97 02/15/24 12:00 108 H 21 H 119/50 95 02/15/24 11:45 109 H 18 124/60 96 02/15/24 11:30 110 H 19 H 124/60 96 02/15/24 11:00 104 H 18 121/59 93 02/15/24 10:39 113 H 22 H 125/50 93 02/15/24 10:00 102 H 15 105/47 95 02/15/24 09:30 107 H 17 107/49 96 02/15/24 09:30 106 H 17 107/49 96 Nasal Cannula 02/15/24 09:00 111 H 19 H 124/62 97 02/15/24 08:30 112 H 26 H 121/55 80 L 02/15/24 08:00 135/63 02/15/24 07:45 135/63 02/15/24 07:30 115/54 99 02/15/24 07:15 116/56 97 02/15/24 07:00 121/58 96 02/15/24 05:56 132 H 18 111/53 94 Room Air 02/15/24 05:16 99 18 98/53 98 Room Air 02/15/24 04:25 94 16 114/55 98 Nasal Cannula 2 02/15/24 03:30 97 16 109/54 98 Nasal Cannula 2 02/15/24 02:25 99 18 100/53 99 Room Air Date exam was performed: 02/15/24 Time exam was performed: 13:51 2 Sepsis Screen No Definite Risk 02/15/24 12:30 Respiratory Rate 17 breaths/min (12 - 18) 02/15/24 12:30 Blood Pressure 124/59 mmHg 02/15/24 12:30 [place] Coma Scale Score 15 02/15/24 05:56 Quick SOFA Score 0 02/15/24 12:30 SOFA Score: 2 Denise Coma Scale Score 15 02/15/24 05:56 Blood Pressure Mean 80 mmHg 02/15/24 12:30 Total Bilirubin 0.5 mg/dL (0.15-1.2) 02/15/24 08:07 Platelet Count 73 10^3/cmm (157-399) L 02/15/24 08:07 Creatinine 2.6 mg/dL (0.7-1.2) H 02/15/24 08:07 Data 02/15/24 08:07 02/15/24 08:07 Micro: Microbiology 02/14/24 22:01 Blood Culture - Preliminary Blood SPECIMEN COLLECTED 02/14/24 22:07 Blood Culture - Preliminary Blood SPECIMEN COLLECTED A&P Assessment and plan (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 Being transferred to [facility] for further workup. Patient most likely will need bone marrow biopsy. Appreciate CBC, LDH, uric acid levels. Continue with allopurinol. Discussed in detail with Dr. Robertson. The patient continues to remain at the ER without being able to get a bed at [facility] for next 24 hours we will consider starting hydroxyurea. Start on IV hydration with normal saline at 75 cc/h for now. Regular diet. (2) Leukocytosis: Most likely in setting of possible CML. Cannot rule out mild infection given colitis seen on CT abdomen/pelvis. Check blood culture, procalcitonin, urinalysis, MRSA swab. For now start patient on IV vancomycin and Zosyn. If have diarrhea we will plan to check stool for C. difficile. Qualifiers: Leukocytosis type: unspecified Qualified Code(s): D72.829 - Elevated white blood cell count, unspecified (3) Thrombocytopenia: As above. For now continue to monitor. No concerns for bleeding (4) Diverticulitis: (5) Acute kidney insufficiency: Most likely in setting of dehydration, possible malignancy and recent contrast study done within the last 5 days. Check urine lites, urinalysis, urine creatinine. IV hydration as above. Monitor electrolytes. Patient does have hypokalemia. Replace with 80 mg of oral potassium. Repeat BMP in evening. Denny catheterization. Concerns for recently lithotripsy with stent placement. CT of the abdomen pelvis does show distended urinary bladder. (6) Urolithiasis: (7) Ureteral stent present: Plan Awaiting bed at [facility]. Full code Regular diet Protonix for PUD prophylaxis Lovenox for DVT prophylaxis. Consult Attestations 2 Medical Necessity Statement: Patient request to be transferred to a higher center for further evaluation and workup for leukocytosis with concerns for CML as he needs a bone marrow biopsy and further management, acute kidney injury, colitis Diagnoses CML (chronic myelocytic leukemia) C92.10 Leukocytosis D72.829 Leukocytosis type: unspecified Thrombocytopenia D69.6 Diverticulitis K57.92 Acute kidney insufficiency N28.9 Urolithiasis N20.9 Ureteral stent present Z96.0
[2024-02-15] MEDS: enoxaparin 40 mg/0.4 mL Syringe SUBCUT (08:24)
[2024-02-15] MEDS: allopurinol 300 mg Tablet PO (08:24)
[2024-02-15] MEDS: pantoprazole 40 mg SDV IVP (08:24)
[2024-02-15 08:41] LABS: Basophils # 0.2 10^3/uL (0.0-0.1); Basophils % 0.1 %; Eosinophils % 1.6 %; Hematocrit 32.8 % (37-53); Lymphocytes # 11.5 10^3/uL (0.8-4.8); Lymphocytes % 9.2 %; Mean Corpuscular HGB Conc 31.4 g/dL (30-55); Mean Corpuscular Hemoglobin 29.4 pg (27-33); Mean Corpuscular Volume 93.7 fl (82-101); Mean Platelet Volume 10.6 fL (7.4-10.4); Monocytes # 70.6 10^3/uL (0.2-0.9); Monocytes % 56.9 %; Neutrophils # 14.52 10^3/uL (1.8-7.7); Neutrophils % 11.8 %; Nucleated Red Blood Cells # 1.3 /100WBC; Platelet Count 73 10^3/cmm (157-399); Red Cell Distribution Width 20.9 % (12.1-15.1)
[2024-02-15 08:52] LABS: Estmated Average Glucose 120; Hemoglobin A1C 5.8 % (4.0-6.0)
[2024-02-15] MEDS: sodium chloride 0.9% 1,000 ML 75 ML IV (09:04)
[2024-02-15 09:07] LABS: Lactic Sepsis W/Reflex 1.7 mmol/L (0.5-2.2)
[2024-02-15 09:21] LABS: Thyroid Stimulating Hormone 4.44 uIU/mL (0.27-4.20); Vitamin B12 526 pg/mL (232-1245)
[2024-02-15 09:33] LABS: Alanine Aminotransferase 18 U/L (0-41); Alkaline Phosphatase 90 U/L (40-130); Anion Gap 15.8 (5-19); Aspartate Amino Transferase 27 U/L (0-40); Blood Urea Nitrogen 23 mg/dL (8-23); Calcium 7.9 mg/dL (8.5-10.5); Carbon Dioxide 27 mmol/L (22-29); Chloride 101 mmol/L (98-107); Chol HDL Ratio 3.93 mg/dL (1.0-5.00); Cholesterol 55 mg/dL (0-200); Creatinine Clr Calc Pharmacy 16.8923; Globulin 2.7 g/dL (1.3-4.6); Glucose 85 mg/dL (65-115); HDL Cholesterol 14 mg/dL (60-100); Iron 114 ug/dL (59-158); LDL Cholesterol Calculated 12 mg/dL (50-129); LDL HDL Ratio 0.86 RATIO (0.00-3.22); Osmolality Calculated 295 mOsm/kg (285-295); Percent Saturation 59.6 % (20-50); Sodium 141 mmol/L (136-145); Total Bilirubin 0.5 mg/dL (0.15-1.2); Total Iron Binding Capacity 191 mcg/dl; Total Protein 5.7 g/dL (6.6-8.7); Triglycerides 147 mg/dL (0-150); Unsaturated Iron Binding 77 ug/dL (112-347); Uric Acid 7.6 mg/dL (3.4-7.0); White Blood Count 124.04 10^3/uL (3.29-11.43)
[2024-02-15 09:36] LABS: Potassium 2.8 mmol/L (3.5-5.1)
[2024-02-15 09:40] LABS: Slide Review Slide Review Perform
[2024-02-15 10:57] LABS: Magnesium 1.3 mg/dL (1.7-2.3); Phosphorus 2.8 mg/dL (2.5-4.5)
[2024-02-15] MEDS: potassium chloride ER 20 mEq Tablet 40 MEQ PO ×2 (11:02→12:59)
[2024-02-15 11:04] LABS: Potassium, Radom Urine 45 mmol/L; Urine Random Chloride 58 mmol/L; Urine Random Sodium 70 mmol/L
[2024-02-15 14:55] LABS: Anion Gap 12.9 (5-19); Blood Urea Nitrogen 22 mg/dL (8-23); Calcium 7.8 mg/dL (8.5-10.5); Carbon Dioxide 30 mmol/L (22-29); Chloride 99 mmol/L (98-107); Glucose 132 mg/dL (65-115); Osmolality Calculated 293 mOsm/kg (285-295); Sodium 139 mmol/L (136-145)
[2024-02-15 14:57] LABS: Potassium 2.9 mmol/L (3.5-5.1)
[2024-02-17 14:11] LABS: Methicillin-Resist S.aureu PCR NOT DETECTED (NOT DETECTED)
== END 2024-02-15 17:24 | disposition short-term general hospital (02) ==
PROVIDERS: Emergency Medicine; Student in an Organized Health Care Education/Training Program; Emergency Provider Emergency Medicine; PCP Family Medicine
DX: D72.829 Elevated white blood cell count, unspecified (principal); D69.6 Thrombocytopenia, unspecified; N17.9 Acute kidney failure, unspecified; Z96.0 Presence of urogenital implants; I10 Essential (primary) hypertension; E78.5 Hyperlipidemia, unspecified; R00.0 Tachycardia, unspecified
CPT/HCPCS: 36415; 51702; 74176; 80048; 80053; 80061; 81001; 82436; 82550; 82607; 83036; 83540; 83550; 83605; 83615; 83735; 84100; 84133; 84145; 84300; 84443; 84550; 85007; 85025; 85610; 86403; 87040; 87086; 87641; 88374; 93005; 94664; 96365; 96366; 96367; 96372; 96375; 99205; 99285; C9113; J1650; J2405; J2543; J3370; J7030; J7050

== ENCOUNTER 2024-04-17 08:51 | Oncology outpatient (recurring) (ONCR) | payer MEDICARE, SELFPAY ==
[2024-04-17 09:09] LABS: Basophils # 0.1 10^3/uL (0.0-0.1); Basophils % 0.8 %; Eosinophils # 0.3 10^3/uL (0.0-0.8); Eosinophils % 4.2 %; Hematocrit 27.5 % (37-53); Lymphocytes # 0.7 10^3/uL (0.8-4.8); Lymphocytes % 8.8 %; Mean Corpuscular HGB Conc 33.1 g/dL (30-55); Mean Corpuscular Volume 102.6 fl (82-101); Mean Platelet Volume 9.4 fL (7.4-10.4); Monocytes # 1.3 10^3/uL (0.2-0.9); Monocytes % 15.9 %; Neutrophils # 5.48 10^3/uL (1.8-7.7); Neutrophils % 69.7 %; Nucleated Red Blood Cells % 0 %; Platelet Count 147 10^3/cmm (157-399); Red Blood Count 2.68 10^6/uL (3.85-5.65); Red Cell Distribution Width 24.5 % (12.1-15.1); White Blood Count 7.86 10^3/uL (3.29-11.43)
[2024-04-17 09:30] LABS: Alanine Aminotransferase 24 U/L (0-41); Albumin Level 2.9 g/dL (3.5-5.2); Alkaline Phosphatase 148 U/L (40-130); Anion Gap 14.4 (5-19); Aspartate Amino Transferase 24 U/L (0-40); Blood Urea Nitrogen 18 mg/dL (8-23); Calcium 8.5 mg/dL (8.5-10.5); Carbon Dioxide 26 mmol/L (22-29); Chloride 98 mmol/L (98-107); Creatinine Clr Calc Pharmacy 43.0914; Globulin 2.9 g/dL (1.3-4.6); Glucose 119 mg/dL (65-115); Lactate Dehydrogenase 115 U/L (135-225); Osmolality Calculated 283 mOsm/kg (285-295); Potassium 3.4 mmol/L (3.5-5.1); Sodium 135 mmol/L (136-145); Total Protein 5.8 g/dL (6.6-8.7)
[2024-04-17 09:36] LABS: Slide Review Slide Review Perform
[2024-04-17 11:39] LABS: Iron 29 ug/dL (59-158); Percent Saturation 20.7 % (20-50); Total Iron Binding Capacity 140 mcg/dl; Unsaturated Iron Binding 111 ug/dL (112-347); Vitamin B12 963 pg/mL (232-1245)
[2024-04-17 11:42] LABS: Folate Level 6.2 ng/mL (4.5-32.2)
== END 2024-04-22 23:59 | disposition home or self-care (01) ==
PROVIDERS: PCP Family Medicine; Visit Provider Internal Medicine Medical Oncology
DX: C92.00 Acute myeloblastic leukemia, not having achieved remission (principal); Z53.9 Procedure and treatment not carried out, unspecified reason; E79.0 Hyperuricemia without signs of inflammatory arthritis and tophaceous disease
CPT/HCPCS: 36415; 80053; 82607; 82746; 83540; 83550; 83615; 85025; 99214

== ENCOUNTER 2024-05-15 09:15 | Oncology outpatient (recurring) (ONCR) | payer MEDICARE, SELFPAY ==
[2024-05-01 08:22] LABS: Basophils % 0.4 %; Eosinophils # 0.3 10^3/uL (0.0-0.8); Eosinophils % 3.7 %; Hematocrit 30.8 % (37-53); Lymphocytes # 0.8 10^3/uL (0.8-4.8); Lymphocytes % 10.4 %; Mean Corpuscular HGB Conc 32.1 g/dL (30-55); Mean Corpuscular Hemoglobin 34.9 pg (27-33); Mean Corpuscular Volume 108.5 fl (82-101); Monocytes # 1.3 10^3/uL (0.2-0.9); Monocytes % 16.4 %; Neutrophils # 5.44 10^3/uL (1.8-7.7); Neutrophils % 68.7 %; Nucleated Red Blood Cells % 0 %; Platelet Count 81 10^3/cmm (157-399); Red Blood Count 2.84 10^6/uL (3.85-5.65); Red Cell Distribution Width 21.2 % (12.1-15.1); White Blood Count 7.91 10^3/uL (3.29-11.43)
[2024-05-01 08:38] LABS: Alanine Aminotransferase 18 U/L (0-41); Albumin Level 3.4 g/dL (3.5-5.2); Alkaline Phosphatase 85 U/L (40-130); Aspartate Amino Transferase 18 U/L (0-40); Blood Urea Nitrogen 22 mg/dL (8-23); Calcium 9.6 mg/dL (8.5-10.5); Carbon Dioxide 26 mmol/L (22-29); Chloride 100 mmol/L (98-107); Globulin 3.3 g/dL (1.3-4.6); Glucose 132 mg/dL (65-115); Lactate Dehydrogenase 124 U/L (135-225); Osmolality Calculated 287 mOsm/kg (285-295); Sodium 136 mmol/L (136-145); Total Bilirubin 0.7 mg/dL (0.15-1.2); Total Protein 6.7 g/dL (6.6-8.7)
[2024-05-01 10:29] LABS: Uric Acid 2.1 mg/dL (3.4-7.0)
[2024-05-15 09:47] LABS: Basophils % 0.7 %; Eosinophils # 0.1 10^3/uL (0.0-0.8); Eosinophils % 2.8 %; Hematocrit 28.4 % (37-53); Lymphocytes # 0.6 10^3/uL (0.8-4.8); Lymphocytes % 13.4 %; Mean Corpuscular HGB Conc 33.1 g/dL (30-55); Mean Corpuscular Hemoglobin 35.7 pg (27-33); Mean Platelet Volume 9.8 fL (7.4-10.4); Monocytes # 1.2 10^3/uL (0.2-0.9); Monocytes % 28.5 %; Neutrophils # 2.26 10^3/uL (1.8-7.7); Neutrophils % 53.4 %; Nucleated Red Blood Cells % 0 %; Platelet Count 46 10^3/cmm (157-399); Red Blood Count 2.63 10^6/uL (3.85-5.65); Red Cell Distribution Width 16.8 % (12.1-15.1); White Blood Count 4.24 10^3/uL (3.29-11.43)
[2024-05-15 10:02] LABS: Alanine Aminotransferase 18 U/L (0-41); Albumin Level 3.2 g/dL (3.5-5.2); Alkaline Phosphatase 75 U/L (40-130); Aspartate Amino Transferase 12 U/L (0-40); Blood Urea Nitrogen 20 mg/dL (8-23); Calcium 9.3 mg/dL (8.5-10.5); Carbon Dioxide 25 mmol/L (22-29); Chloride 101 mmol/L (98-107); Creatinine Clr Calc Pharmacy 43.2726; Globulin 3.4 g/dL (1.3-4.6); Glucose 106 mg/dL (65-115); Lactate Dehydrogenase 85 U/L (135-225); Osmolality Calculated 283 mOsm/kg (285-295); Sodium 135 mmol/L (136-145); Total Bilirubin 0.5 mg/dL (0.15-1.2); Total Protein 6.6 g/dL (6.6-8.7); Uric Acid 4.9 mg/dL (3.4-7.0)
== END 2024-05-22 23:59 | disposition home or self-care (01) ==
PROVIDERS: PCP Family Medicine; Visit Provider Internal Medicine Medical Oncology
DX: C92.00 Acute myeloblastic leukemia, not having achieved remission (principal); Z79.899 Other long term (current) drug therapy; Z53.9 Procedure and treatment not carried out, unspecified reason
CPT/HCPCS: 80053; 83615; 84550; 85025; 99214

== ENCOUNTER 2024-05-29 09:09 | Oncology outpatient (recurring) (ONCR) | payer MEDICARE, SELFPAY ==
[2024-05-29 09:36] LABS: Basophils % 0.7 %; Eosinophils # 0.1 10^3/uL (0.0-0.8); Eosinophils % 1.7 %; Hematocrit 28.1 % (37-53); Lymphocytes # 0.7 10^3/uL (0.8-4.8); Lymphocytes % 16.6 %; Mean Corpuscular HGB Conc 33.5 g/dL (30-55); Mean Corpuscular Hemoglobin 36.3 pg (27-33); Mean Corpuscular Volume 108.5 fl (82-101); Mean Platelet Volume 9.3 fL (7.4-10.4); Monocytes # 1.1 10^3/uL (0.2-0.9); Monocytes % 26.4 %; Neutrophils % 52.9 %; Nucleated Red Blood Cells % 0 %; Platelet Count 63 10^3/cmm (157-399); Red Blood Count 2.59 10^6/uL (3.85-5.65); Red Cell Distribution Width 15.2 % (12.1-15.1); White Blood Count 4.16 10^3/uL (3.29-11.43)
[2024-05-29 09:53] LABS: Alanine Aminotransferase 16 U/L (0-41); Albumin Level 3.3 g/dL (3.5-5.2); Alkaline Phosphatase 73 U/L (40-130); Anion Gap 10.7 (5-19); Aspartate Amino Transferase 13 U/L (0-40); Blood Urea Nitrogen 21 mg/dL (8-23); Calcium 8.5 mg/dL (8.5-10.5); Carbon Dioxide 25 mmol/L (22-29); Chloride 102 mmol/L (98-107); Globulin 3.2 g/dL (1.3-4.6); Glucose 128 mg/dL (65-115); Lactate Dehydrogenase 109 U/L (135-225); Osmolality Calculated 283 mOsm/kg (285-295); Potassium 3.7 mmol/L (3.5-5.1); Sodium 134 mmol/L (136-145); Total Bilirubin 0.3 mg/dL (0.15-1.2); Total Protein 6.5 g/dL (6.6-8.7)
[2024-05-29 10:57] LABS: Slide Review Slide Review Perform
== END 2024-06-22 23:59 | disposition home or self-care (01) ==
PROVIDERS: PCP Family Medicine; Visit Provider Internal Medicine Medical Oncology
DX: C92.00 Acute myeloblastic leukemia, not having achieved remission (principal); Z79.899 Other long term (current) drug therapy; R19.7 Diarrhea, unspecified
CPT/HCPCS: 36591; 80053; 83615; 85025; 99214

== ENCOUNTER 2024-07-03 09:14 | Oncology outpatient (recurring) (ONCR) | payer MEDICARE, SELFPAY ==
[2024-07-03 09:34] LABS: Basophils # 0.1 10^3/uL (0.0-0.1); Basophils % 0.8 %; Eosinophils # 0.2 10^3/uL (0.0-0.8); Eosinophils % 1.3 %; Hematocrit 32.9 % (37-53); Lymphocytes # 1.2 10^3/uL (0.8-4.8); Lymphocytes % 10.5 %; Mean Corpuscular HGB Conc 32.2 g/dL (30-55); Mean Corpuscular Hemoglobin 34.8 pg (27-33); Mean Corpuscular Volume 107.9 fl (82-101); Mean Platelet Volume 9.7 fL (7.4-10.4); Monocytes # 2.5 10^3/uL (0.2-0.9); Monocytes % 22.1 %; Neutrophils # 7.03 10^3/uL (1.8-7.7); Neutrophils % 61.3 %; Nucleated Red Blood Cells % 0 %; Platelet Count 128 10^3/cmm (157-399); Red Blood Count 3.05 10^6/uL (3.85-5.65); Red Cell Distribution Width 15.3 % (12.1-15.1); White Blood Count 11.47 10^3/uL (3.29-11.43)
[2024-07-03 09:57] LABS: Alanine Aminotransferase 20 U/L (0-41); Albumin Level 3.8 g/dL (3.5-5.2); Alkaline Phosphatase 92 U/L (40-130); Aspartate Amino Transferase 18 U/L (0-40); Blood Urea Nitrogen 28 mg/dL (8-23); Calcium 9.2 mg/dL (8.5-10.5); Carbon Dioxide 27 mmol/L (22-29); Chloride 103 mmol/L (98-107); Globulin 2.5 g/dL (1.3-4.6); Glucose 125 mg/dL (65-115); Lactate Dehydrogenase 158 U/L (135-225); Osmolality Calculated 293 mOsm/kg (285-295); Sodium 138 mmol/L (136-145); Total Bilirubin 0.2 mg/dL (0.15-1.2); Total Protein 6.3 g/dL (6.6-8.7); Uric Acid 5.5 mg/dL (3.4-7.0)
== END 2024-07-22 23:59 | disposition home or self-care (01) ==
PROVIDERS: Internal Medicine Hematology & Oncology; PCP Family Medicine; Visit Provider Internal Medicine Medical Oncology
DX: C92.00 Acute myeloblastic leukemia, not having achieved remission (principal); Z79.899 Other long term (current) drug therapy; R19.7 Diarrhea, unspecified
CPT/HCPCS: 80053; 83615; 84550; 85025; 99213

== ENCOUNTER 2024-08-21 09:15 | Oncology outpatient (recurring) (ONCR) | payer MEDICARE, SELFPAY ==
[2024-07-24 09:31] LABS: Basophils # 0.1 10^3/uL (0.0-0.1); Basophils % 0.5 %; Eosinophils # 0.2 10^3/uL (0.0-0.8); Eosinophils % 0.6 %; Hematocrit 32.6 % (37-53); Lymphocytes # 1.3 10^3/uL (0.8-4.8); Lymphocytes % 4.4 %; Mean Corpuscular HGB Conc 31.6 g/dL (30-55); Mean Corpuscular Hemoglobin 32.6 pg (27-33); Mean Corpuscular Volume 103.2 fl (82-101); Mean Platelet Volume 11.3 fL (7.4-10.4); Monocytes # 6.4 10^3/uL (0.2-0.9); Monocytes % 21.8 %; Neutrophils # 19.91 10^3/uL (1.8-7.7); Neutrophils % 68.2 %; Nucleated Red Blood Cells % 0 %; Platelet Count 91 10^3/cmm (157-399); Red Blood Count 3.16 10^6/uL (3.85-5.65); Red Cell Distribution Width 15.4 % (12.1-15.1); White Blood Count 29.19 10^3/uL (3.29-11.43)
[2024-07-24 09:46] LABS: Alanine Aminotransferase 17 U/L (0-41); Albumin Level 3.6 g/dL (3.5-5.2); Alkaline Phosphatase 106 U/L (40-130); Anion Gap 12.6 (5-19); Aspartate Amino Transferase 14 U/L (0-40); Blood Urea Nitrogen 28 mg/dL (8-23); Carbon Dioxide 25 mmol/L (22-29); Chloride 98 mmol/L (98-107); Globulin 3.8 g/dL (1.3-4.6); Glucose 140 mg/dL (65-115); Osmolality Calculated 282 mOsm/kg (285-295); Potassium 3.6 mmol/L (3.5-5.1); Sodium 132 mmol/L (136-145); Total Bilirubin 0.3 mg/dL (0.15-1.2); Total Protein 7.4 g/dL (6.6-8.7)
[2024-07-24] MEDS: sodium chloride 0.9% 250 ML 75 ML IV (11:47)
[2024-07-24] MEDS: ondansetron 2 mg/ML SDV 2 mL 8 MG IVP (11:48)
[2024-07-24] MEDS: DECITABINE IV (12:19)
[2024-07-24] MEDS: SODIUM CHLORIDE 0.9% IV (12:19)
[2024-07-24 13:50] VITALS: BP 147/70; PULSE 83; TEMP 37.1; O2SAT 99
[2024-07-25 11:44] VITALS: BP 113/70; PULSE 75; RESP 16; TEMP 36.7; O2SAT 94
[2024-07-25] MEDS: ondansetron 2 mg/ML SDV 2 mL 8 MG IVP (11:48)
[2024-07-25] MEDS: sodium chloride 0.9% 250 ML 75 ML IV (11:48)
[2024-07-25] MEDS: DECITABINE IV (12:19)
[2024-07-25] MEDS: SODIUM CHLORIDE 0.9% IV (12:19)
[2024-07-25 13:31] VITALS: BP 112/52; PULSE 81; RESP 16; TEMP 36.6; O2SAT 96
[2024-07-26 10:46] VITALS: BP 93/59; PULSE 74; RESP 16; TEMP 36.8; O2SAT 94
[2024-07-26] MEDS: DECITABINE IV (11:16)
[2024-07-26] MEDS: SODIUM CHLORIDE 0.9% IV (11:16)
[2024-07-26] MEDS: ondansetron 2 mg/ML SDV 2 mL 8 MG IVP (11:20)
[2024-07-26] MEDS: sodium chloride 0.9% 250 ML 50 ML IV (11:21)
[2024-07-27 10:40] VITALS: BP 112/75; PULSE 100; RESP 18; TEMP 36.6; O2SAT 98
[2024-07-27] MEDS: ondansetron 2 mg/ML SDV 2 mL 8 MG IVP (10:58)
[2024-07-27] MEDS: sodium chloride 0.9% 250 ML 50 ML IV (10:58)
[2024-07-27] MEDS: SODIUM CHLORIDE 0.9% IV (11:23)
[2024-07-27] MEDS: DECITABINE IV (11:23)
[2024-07-27 12:34] VITALS: BP 126/93; PULSE 64; RESP 18; TEMP 37; O2SAT 98
[2024-07-27 12:40] VITALS: BP 120/78; PULSE 84; RESP 18; TEMP 36.4; O2SAT 98
[2024-07-28 09:04] VITALS: BP 132/77; PULSE 71; RESP 16; TEMP 36.2; O2SAT 93
[2024-07-28] MEDS: sodium chloride 0.9% 250 ML 75 ML IV (09:23)
[2024-07-28] MEDS: ondansetron 2 mg/ML SDV 2 mL 8 MG IVP (09:24)
[2024-07-28] MEDS: DECITABINE IV (10:02)
[2024-07-28] MEDS: SODIUM CHLORIDE 0.9% IV (10:02)
[2024-07-28 11:20] VITALS: BP 123/66; PULSE 68; RESP 17; TEMP 35.9; O2SAT 98
[2024-07-31 11:26] LABS: Basophils # 0.1 10^3/uL (0.0-0.1); Basophils % 0.4 %; Hematocrit 30.1 % (37-53); Lymphocytes # 0.7 10^3/uL (0.8-4.8); Lymphocytes % 2.7 %; Mean Corpuscular HGB Conc 31.9 g/dL (30-55); Mean Corpuscular Hemoglobin 32.4 pg (27-33); Mean Corpuscular Volume 101.7 fl (82-101); Mean Platelet Volume 11.8 fL (7.4-10.4); Monocytes # 2.2 10^3/uL (0.2-0.9); Monocytes % 8.5 %; Neutrophils # 21.41 10^3/uL (1.8-7.7); Neutrophils % 83.3 %; Nucleated Red Blood Cells % 0 %; Platelet Count 68 10^3/cmm (157-399); Red Blood Count 2.96 10^6/uL (3.85-5.65); Red Cell Distribution Width 15.8 % (12.1-15.1); White Blood Count 25.71 10^3/uL (3.29-11.43)
[2024-07-31 11:41] LABS: Alanine Aminotransferase 22 U/L (0-41); Albumin Level 3.4 g/dL (3.5-5.2); Alkaline Phosphatase 120 U/L (40-130); Aspartate Amino Transferase 23 U/L (0-40); Blood Urea Nitrogen 35 mg/dL (8-23); Calcium 9.4 mg/dL (8.5-10.5); Carbon Dioxide 23 mmol/L (22-29); Chloride 99 mmol/L (98-107); Creatinine Clr Calc Pharmacy 33.0869; Globulin 3.3 g/dL (1.3-4.6); Glucose 138 mg/dL (65-115); Osmolality Calculated 288 mOsm/kg (285-295); Sodium 134 mmol/L (136-145); Total Bilirubin 0.5 mg/dL (0.15-1.2); Total Protein 6.7 g/dL (6.6-8.7)
[2024-07-31 11:58] LABS: Slide Review Slide Review Perform
--- NOTE | 2024-07-31 12:56 | XR_ITS ---
WS: [id number] Exam: XR shoulder RT min 2V* [id number] Date/Time of Exam: 07/31/2024 1:18 PM Reason For Exam: fell on right shoulder, right shoulder pain No acute fracture noted. High riding humeral head articulates with the acromion most likely indicatin g longstanding rotator cuff tear. There is degenerative change at the AC joint and the glenohumeral j oint. RIGHT subclavian port noted. Normal soft tissues. XR/XR shoulder RT min 2V* [id number] IMPRESSION: 1. No obvious acute fracture. 2. Findings that suggest longstanding rotator cuff tear. Moderate degenerative changes.
[2024-08-07 14:56] LABS: Hematocrit 25.1 % (37-53); Nucleated Red Blood Cells % 0 %
[2024-08-07 15:07] LABS: Basophils % 1.1 %; Eosinophils # 0.3 10^3/uL (0.0-0.8); Eosinophils % 6.6 %; Lymphocytes # 0.8 10^3/uL (0.8-4.8); Lymphocytes % 21.2 %; Mean Corpuscular HGB Conc 32.7 g/dL (30-55); Mean Corpuscular Hemoglobin 32.7 pg (27-33); Monocytes # 0.5 10^3/uL (0.2-0.9); Monocytes % 12.7 %; Neutrophils # 2.09 10^3/uL (1.8-7.7); Neutrophils % 55.5 %; Red Blood Count 2.51 10^6/uL (3.85-5.65); Red Cell Distribution Width 16.2 % (12.1-15.1); White Blood Count 3.77 10^3/uL (3.29-11.43)
[2024-08-07 15:12] LABS: Alanine Aminotransferase 15 U/L (0-41); Albumin Level 3.7 g/dL (3.5-5.2); Alkaline Phosphatase 68 U/L (40-130); Anion Gap 15.7 (5-19); Aspartate Amino Transferase 13 U/L (0-40); Blood Urea Nitrogen 42 mg/dL (8-23); Calcium 9.4 mg/dL (8.5-10.5); Carbon Dioxide 18 mmol/L (22-29); Chloride 102 mmol/L (98-107); Globulin 3.2 g/dL (1.3-4.6); Glucose 128 mg/dL (65-115); Osmolality Calculated 284 mOsm/kg (285-295); Potassium 4.7 mmol/L (3.5-5.1); Sodium 131 mmol/L (136-145); Total Bilirubin 0.3 mg/dL (0.15-1.2); Total Protein 6.9 g/dL (6.6-8.7)
[2024-08-07 15:33] LABS: Platelet Count 20 10^3/cmm (157-399); Slide Review Slide Review Perform
[2024-08-14 12:07] LABS: Basophils % 2.3 %; Eosinophils # 0.4 10^3/uL (0.0-0.8); Eosinophils % 25.7 %; Hematocrit 27.9 % (37-53); Lymphocytes # 0.9 10^3/uL (0.8-4.8); Mean Corpuscular HGB Conc 32.3 g/dL (30-55); Mean Corpuscular Hemoglobin 33.6 pg (27-33); Mean Corpuscular Volume 104.1 fl (82-101); Monocytes # 0.1 10^3/uL (0.2-0.9); Monocytes % 2.9 %; Neutrophils % 16.5 %; Nucleated Red Blood Cells % 0 %; Red Blood Count 2.68 10^6/uL (3.85-5.65); Red Cell Distribution Width 20.3 % (12.1-15.1); White Blood Count 1.71 10^3/uL (3.29-11.43)
[2024-08-14 12:24] LABS: Alanine Aminotransferase 17 U/L (0-41); Albumin Level 3.6 g/dL (3.5-5.2); Alkaline Phosphatase 63 U/L (40-130); Anion Gap 14.4 (5-19); Aspartate Amino Transferase 14 U/L (0-40); Blood Urea Nitrogen 36 mg/dL (8-23); Calcium 9.1 mg/dL (8.5-10.5); Carbon Dioxide 18 mmol/L (22-29); Chloride 103 mmol/L (98-107); Creatinine Clr Calc Pharmacy 33.3006; Globulin 3.1 g/dL (1.3-4.6); Glucose 112 mg/dL (65-115); Lactate Dehydrogenase 147 U/L (135-225); Osmolality Calculated 281 mOsm/kg (285-295); Potassium 4.4 mmol/L (3.5-5.1); Sodium 131 mmol/L (136-145); Total Bilirubin 0.4 mg/dL (0.15-1.2); Total Protein 6.7 g/dL (6.6-8.7)
[2024-08-14 13:15] LABS: Neutrophils # 0.28 10^3/uL (1.8-7.7); Platelet Count 19 10^3/cmm (157-399); Slide Review Slide Review Perform
[2024-08-21 11:27] LABS: Eosinophils # 0.2 10^3/uL (0.0-0.8); Eosinophils % 25.6 %; Hematocrit 26.1 % (37-53); Lymphocytes # 0.6 10^3/uL (0.8-4.8); Lymphocytes % 66.7 %; Mean Corpuscular HGB Conc 31.8 g/dL (30-55); Mean Corpuscular Hemoglobin 34.4 pg (27-33); Mean Corpuscular Volume 108.3 fl (82-101); Mean Platelet Volume 10.5 fL (7.4-10.4); Monocytes % 2.2 %; Neutrophils % 4.4 %; Nucleated Red Blood Cells % 0 %; Platelet Count 66 10^3/cmm (157-399); Red Blood Count 2.41 10^6/uL (3.85-5.65); Red Cell Distribution Width 21.6 % (12.1-15.1)
[2024-08-21 11:43] LABS: Alanine Aminotransferase 15 U/L (0-41); Albumin Level 3.4 g/dL (3.5-5.2); Alkaline Phosphatase 56 U/L (40-130); Anion Gap 15.1 (5-19); Aspartate Amino Transferase 12 U/L (0-40); Blood Urea Nitrogen 35 mg/dL (8-23); Carbon Dioxide 20 mmol/L (22-29); Chloride 103 mmol/L (98-107); Creatinine Clr Calc Pharmacy 43.4317; Glucose 113 mg/dL (65-115); Osmolality Calculated 287 mOsm/kg (285-295); Potassium 4.1 mmol/L (3.5-5.1); Sodium 134 mmol/L (136-145); Total Bilirubin 0.2 mg/dL (0.15-1.2); Total Protein 6.4 g/dL (6.6-8.7)
[2024-08-21 12:01] LABS: Neutrophils # 0.04 10^3/uL (1.8-7.7); Slide Review Slide Review Perform
== END 2024-08-22 23:59 | disposition home or self-care (01) ==
PROVIDERS: Nurse Practitioner Family; PCP Family Medicine; Visit Provider Internal Medicine Medical Oncology
DX: Z53.9 Procedure and treatment not carried out, unspecified reason (principal); C92.00 Acute myeloblastic leukemia, not having achieved remission; Z79.899 Other long term (current) drug therapy
CPT/HCPCS: 36591; 73030; 80053; 83615; 85025; 96375; 96413; 99214; J0894; J2405; J7050

== ENCOUNTER 2024-09-11 08:30 | Oncology outpatient (recurring) (ONCR) | payer MEDICARE, SELFPAY ==
[2024-09-04 11:27] LABS: Hematocrit 29.5 % (37-53); Mean Corpuscular HGB Conc 31.9 g/dL (30-55); Mean Corpuscular Hemoglobin 33.5 pg (27-33); Mean Platelet Volume 11.4 fL (7.4-10.4); Platelet Count 142 10^3/cmm (157-399); Red Blood Count 2.81 10^6/uL (3.85-5.65); Red Cell Distribution Width 20.7 % (12.1-15.1); White Blood Count 9.47 10^3/uL (3.29-11.43)
[2024-09-04 11:36] LABS: Alanine Aminotransferase 24 U/L (0-41); Albumin Level 3.3 g/dL (3.5-5.2); Alkaline Phosphatase 66 U/L (40-130); Anion Gap 16.1 (5-19); Aspartate Amino Transferase 19 U/L (0-40); Blood Urea Nitrogen 19 mg/dL (8-23); Carbon Dioxide 20 mmol/L (22-29); Chloride 100 mmol/L (98-107); Globulin 3.2 g/dL (1.3-4.6); Glucose 114 mg/dL (65-115); Osmolality Calculated 277 mOsm/kg (285-295); Potassium 4.1 mmol/L (3.5-5.1); Sodium 132 mmol/L (136-145); Total Bilirubin 0.2 mg/dL (0.15-1.2); Total Protein 6.5 g/dL (6.6-8.7)
[2024-09-04 11:45] LABS: Slide Review Slide Review Perform
[2024-09-04 11:49] LABS: Absolute Eosinophils 0.1 10^3/cmm (0.0-0.7); Absolute Segmented Neutrophil 3.7 10/cmm (1.6-7.1); Band Neutrophils Absolute 0.9 10^3/cmm (0.0-1.2); Eosinophils 1 %; Lymphocytes 16 %; Monocytes Absolute 2.5 10^3/cmm (0.1-0.6); Segmented Neutrophils 39 %; Total Cells Counted 100 (0-100)
[2024-09-04 11:53] LABS: Absolute Neutrophil 4.5 10^3/cmm (1.4-6.5); Anisocytosis 1+; Lymphocytes Absolute 1.5 10^3/cmm (1.2-3.4); Platelet Estimate Normal (Normal); Poikilocytosis 1+
[2024-09-11 08:50] LABS: Hematocrit 30.4 % (37-53); Mean Corpuscular HGB Conc 31.6 g/dL (30-55); Mean Corpuscular Hemoglobin 33.3 pg (27-33); Mean Corpuscular Volume 105.6 fl (82-101); Mean Platelet Volume 10.6 fL (7.4-10.4); Platelet Count 122 10^3/cmm (157-399); Red Blood Count 2.88 10^6/uL (3.85-5.65); Red Cell Distribution Width 20.6 % (12.1-15.1); White Blood Count 11.34 10^3/uL (3.29-11.43)
[2024-09-11 09:08] LABS: Slide Review Slide Review Perform
[2024-09-11 09:11] LABS: Alanine Aminotransferase 16 U/L (0-41); Albumin Level 3.5 g/dL (3.5-5.2); Alkaline Phosphatase 64 U/L (40-130); Anion Gap 15.8 (5-19); Aspartate Amino Transferase 13 U/L (0-40); Blood Urea Nitrogen 24 mg/dL (8-23); Calcium 9.3 mg/dL (8.5-10.5); Carbon Dioxide 21 mmol/L (22-29); Chloride 99 mmol/L (98-107); Globulin 3.2 g/dL (1.3-4.6); Glucose 124 mg/dL (65-115); Osmolality Calculated 279 mOsm/kg (285-295); Potassium 3.8 mmol/L (3.5-5.1); Sodium 132 mmol/L (136-145); Total Bilirubin 0.2 mg/dL (0.15-1.2); Total Protein 6.7 g/dL (6.6-8.7)
[2024-09-11 09:12] LABS: Absolute Segmented Neutrophil 4.8 10/cmm (1.6-7.1); Band Neutrophils Absolute 1.5 10^3/cmm (0.0-1.2); Lymphocytes 8 %; Monocytes Absolute 3.7 10^3/cmm (0.1-0.6); Segmented Neutrophils 42 %; Total Cells Counted 100 (0-100)
[2024-09-11 09:13] LABS: Absolute Neutrophil 6.2 10^3/cmm (1.4-6.5); Anisocytosis 2+; Eosinophils 0 %; Macrocytosis 1+; Platelet Estimate Normal (Normal); Poikilocytosis 1+
== END 2024-09-22 23:59 | disposition home or self-care (01) ==
PROVIDERS: PCP Family Medicine; Visit Provider Internal Medicine Medical Oncology
DX: C92.00 Acute myeloblastic leukemia, not having achieved remission; D69.6 Thrombocytopenia, unspecified; D75.9 Disease of blood and blood-forming organs, unspecified; Z79.899 Other long term (current) drug therapy; Z53.9 Procedure and treatment not carried out, unspecified reason
CPT/HCPCS: 36591; 80053; 85007; 85025; 99214

== ENCOUNTER 2024-10-16 13:00 | Oncology outpatient (recurring) (ONCR) | payer MEDICARE, SELFPAY ==
[2024-09-25 10:28] LABS: Hematocrit 31.2 % (37-53); Mean Corpuscular HGB Conc 31.1 g/dL (30-55); Mean Corpuscular Hemoglobin 32.1 pg (27-33); Mean Corpuscular Volume 103.3 fl (82-101); Mean Platelet Volume 11.1 fL (7.4-10.4); Platelet Count 106 10^3/cmm (157-399); Red Blood Count 3.02 10^6/uL (3.85-5.65); Red Cell Distribution Width 20.4 % (12.1-15.1); White Blood Count 14.96 10^3/uL (3.29-11.43)
[2024-09-25 10:52] LABS: Absolute Neutrophil 11.1 10^3/cmm (1.4-6.5); Band Neutrophils Absolute 2.1 10^3/cmm (0.0-1.2); Eosinophils 0 %; Lymphocytes 10 %; Lymphocytes Absolute 2.1 10^3/cmm (1.2-3.4); Macrocytosis 1+; Monocytes Absolute 1.2 10^3/cmm (0.1-0.6); Platelet Estimate Decreased (Normal); Segmented Neutrophils 60 %; Slide Review Slide Review Perform; Total Cells Counted 100 (0-100)
[2024-09-25 11:06] LABS: Alanine Aminotransferase 17 U/L (0-41); Albumin Level 3.8 g/dL (3.5-5.2); Alkaline Phosphatase 56 U/L (40-130); Anion Gap 15.1 (5-19); Aspartate Amino Transferase 16 U/L (0-40); Blood Urea Nitrogen 29 mg/dL (8-23); Calcium 9.7 mg/dL (8.5-10.5); Carbon Dioxide 22 mmol/L (22-29); Chloride 100 mmol/L (98-107); Globulin 3.3 g/dL (1.3-4.6); Glucose 115 mg/dL (65-115); Iron 77 ug/dL (59-158); Osmolality Calculated 283 mOsm/kg (285-295); Percent Saturation 24.3 % (20-50); Potassium 4.1 mmol/L (3.5-5.1); Sodium 133 mmol/L (136-145); Total Bilirubin 0.2 mg/dL (0.15-1.2); Total Iron Binding Capacity 316 mcg/dl; Total Protein 7.1 g/dL (6.6-8.7); Unsaturated Iron Binding 239 ug/dL (112-347); Uric Acid 6.6 mg/dL (3.4-7.0)
[2024-09-25 11:22] LABS: Vitamin B12 500 pg/mL (232-1245)
[2024-09-25 11:23] LABS: Ferritin 1227 ng/mL (30-400)
[2024-09-25] MEDS: sodium chloride 0.9% 250 ML 100 ML IV (11:55)
[2024-09-25] MEDS: ondansetron 2 mg/ML SDV 2 mL 8 MG IVP (11:55)
[2024-09-25] MEDS: DECITABINE IV (12:15)
[2024-09-25] MEDS: SODIUM CHLORIDE 0.9% IV (12:15)
[2024-09-25 13:30] VITALS: BP 105/70; PULSE 75; RESP 17; TEMP 35.8; O2SAT 97
[2024-09-26 10:59] VITALS: BP 99/63; PULSE 68; RESP 16; TEMP 36.5; O2SAT 100
[2024-09-26] MEDS: ondansetron 2 mg/ML SDV 2 mL 8 MG IVP (11:17)
[2024-09-26] MEDS: sodium chloride 0.9% 250 ML 75 ML IV (11:17)
[2024-09-26] MEDS: SODIUM CHLORIDE 0.9% IV (12:02)
[2024-09-26] MEDS: DECITABINE IV (12:02)
[2024-09-26 13:20] VITALS: BP 110/71; PULSE 77; RESP 16; TEMP 35.6; O2SAT 99
[2024-09-27] MEDS: sodium chloride 0.9% 250 ML 70 ML IV (11:16)
[2024-09-27] MEDS: ondansetron 2 mg/ML SDV 2 mL 8 MG IVP (11:16)
[2024-09-27] MEDS: DECITABINE IV (11:48)
[2024-09-27] MEDS: SODIUM CHLORIDE 0.9% IV (11:48)
[2024-09-27 13:05] VITALS: BP 117/73; PULSE 88; RESP 16; TEMP 37.2; O2SAT 97
[2024-09-28] MEDS: sodium chloride 0.9% 250 ML 75 ML IV (11:03)
[2024-09-28] MEDS: ondansetron 2 mg/ML SDV 2 mL 8 MG IVP (11:03)
[2024-09-28 11:17] VITALS: BP 100/64; PULSE 75; RESP 18; TEMP 37.1; O2SAT 99
[2024-09-28] MEDS: SODIUM CHLORIDE 0.9% IV (12:19)
[2024-09-28] MEDS: DECITABINE IV (12:19)
[2024-09-28 13:28] VITALS: BP 112/68; PULSE 72; RESP 18; TEMP 36.6; O2SAT 97
[2024-09-29 10:03] VITALS: BP 103/69; PULSE 83; RESP 17; TEMP 36.4; O2SAT 93
[2024-09-29] MEDS: sodium chloride 0.9% 250 ML 75 ML IV (10:05)
[2024-09-29] MEDS: ondansetron 2 mg/ML SDV 2 mL 8 MG IVP (10:05)
[2024-09-29] MEDS: DECITABINE IV (10:24)
[2024-09-29] MEDS: SODIUM CHLORIDE 0.9% IV (10:24)
[2024-09-29 11:44] VITALS: BP 119/52; PULSE 72; RESP 18; TEMP 37.3; O2SAT 98
[2024-10-09 09:55] LABS: Basophils % 1.3 %; Eosinophils # 0.2 10^3/uL (0.0-0.8); Eosinophils % 9.4 %; Hematocrit 27.1 % (37-53); Lymphocytes # 0.8 10^3/uL (0.8-4.8); Lymphocytes % 33.3 %; Mean Corpuscular HGB Conc 31.7 g/dL (30-55); Mean Corpuscular Volume 100.7 fl (82-101); Monocytes # 0.2 10^3/uL (0.2-0.9); Neutrophils # 1.09 10^3/uL (1.8-7.7); Neutrophils % 46.6 %; Nucleated Red Blood Cells % 0 %; Positive C 1; Red Blood Count 2.69 10^6/uL (3.85-5.65); Red Cell Distribution Width 19.5 % (12.1-15.1); White Blood Count 2.34 10^3/uL (3.29-11.43)
[2024-10-09 10:07] LABS: Alanine Aminotransferase 16 U/L (0-41); Albumin Level 3.7 g/dL (3.5-5.2); Alkaline Phosphatase 60 U/L (40-130); Anion Gap 18.7 (5-19); Aspartate Amino Transferase 13 U/L (0-40); Blood Urea Nitrogen 30 mg/dL (8-23); Calcium 9.5 mg/dL (8.5-10.5); Carbon Dioxide 21 mmol/L (22-29); Chloride 99 mmol/L (98-107); Creatinine Clr Calc Pharmacy 35.8405; Globulin 3.3 g/dL (1.3-4.6); Glucose 119 mg/dL (65-115); Lactate Dehydrogenase 137 U/L (135-225); Osmolality Calculated 287 mOsm/kg (285-295); Potassium 3.7 mmol/L (3.5-5.1); Sodium 135 mmol/L (136-145); Total Bilirubin 0.4 mg/dL (0.15-1.2)
[2024-10-09 10:27] LABS: Platelet Count 17 10^3/cmm (157-399)
[2024-10-09 10:31] LABS: Slide Review Slide Review Perform
[2024-10-16 13:20] LABS: Eosinophils # 0.2 10^3/uL (0.0-0.8); Hematocrit 22.8 % (37-53); Lymphocytes # 0.4 10^3/uL (0.8-4.8); Lymphocytes % 57.3 %; Mean Corpuscular Hemoglobin 33.6 pg (27-33); Mean Corpuscular Volume 105.1 fl (82-101); Monocytes % 2.7 %; Nucleated Red Blood Cells % 0 %; Red Blood Count 2.17 10^6/uL (3.85-5.65); Red Cell Distribution Width 19.9 % (12.1-15.1)
[2024-10-16 13:39] LABS: Alanine Aminotransferase 10 U/L (0-41); Albumin Level 3.4 g/dL (3.5-5.2); Alkaline Phosphatase 60 U/L (40-130); Anion Gap 14.8 (5-19); Aspartate Amino Transferase 9 U/L (0-40); Blood Urea Nitrogen 28 mg/dL (8-23); Calcium 9.2 mg/dL (8.5-10.5); Carbon Dioxide 22 mmol/L (22-29); Chloride 102 mmol/L (98-107); Creatinine Clr Calc Pharmacy 31.7515; Globulin 3.5 g/dL (1.3-4.6); Glucose 140 mg/dL (65-115); Osmolality Calculated 288 mOsm/kg (285-295); Potassium 3.8 mmol/L (3.5-5.1); Sodium 135 mmol/L (136-145); Total Bilirubin 0.3 mg/dL (0.15-1.2); Total Protein 6.9 g/dL (6.6-8.7)
[2024-10-16 13:55] LABS: Neutrophils # 0.09 10^3/uL (1.8-7.7); Platelet Count 17 10^3/cmm (157-399); White Blood Count 0.75 10^3/uL (3.29-11.43)
[2024-10-16 13:57] LABS: Slide Review Slide Review Perform
== END 2024-10-20 23:59 | disposition home or self-care (01) ==
PROVIDERS: Nurse Practitioner Family; PCP Family Medicine; Visit Provider Internal Medicine Medical Oncology
DX: Z53.9 Procedure and treatment not carried out, unspecified reason (principal); C92.00 Acute myeloblastic leukemia, not having achieved remission; D69.6 Thrombocytopenia, unspecified; Z79.899 Other long term (current) drug therapy; Z79.2 Long term (current) use of antibiotics
CPT/HCPCS: 36591; 80053; 82607; 82728; 82746; 83540; 83550; 83615; 84550; 85007; 85025; 96375; 96413; 96415; 99214; J0894; J2405; J7050

== ENCOUNTER 2024-10-19 12:23 | Outpatient (CLI) | payer MEDICARE, SELFPAY ==
--- NOTE | 2024-10-19 12:31 | CT_ITS ---
WS: [id number] CT ABDOMEN AND PELVIS NONCONTRAST HISTORY: LEFT LOWER QUADRANT PAIN, HX OF KIDNEY STONES ON LEFT SIDE TECHNIQUE: Imaging performed through the abdomen and pelvis. Coronal and sagittal reformats are submitted. All CT scans at [facility] use at least one of these dose optimization techniques: automated exposure control; mA and/or kV adjustment per patient size (includes targeted exams where dose is matched to clinical indication); or iterative reconstruction. DLP: 234.84 mGy.cm COMPARISON: 02/15/2024 Lower thorax: Lung bases are clear. Visualized heart is normal. Fluid in the distal esophagus. There is also small hiatal hernia. Liver: Normal size liver. No mass or bile duct dilatation. Gallbladder: Normal gallbladder. No pericholecystic fluid or cholelithiasis. No gallbladder wall thickening. Pancreas: Normal size and attenuation. Normal pancreatic duct. No pancreatitis or mass. Spleen: Normal. Adrenal glands: Normal. No mass. Right kidney: Mild cortical thinning and perinephric stranding. Numerous renal calcifications are identified. Additional cortical hypodensities are reidentified. No renal or ureteral obstruction. Left kidney: Mild perinephric stranding and cortical thinning. Mild dilatation of the LEFT renal pelvis and very slight dilatation of the LEFT ureter. In the distal ureter is a 3.5 mm calcification just proximal to the UV junction. There are additional nonobstructing calcifications in the LEFT renal pelvis. Aorta: Mild atherosclerosis abdominal aorta with no aneurysm. Extensive splenic artery calcification. Small mesenteric lymph nodes are reidentified. There are a few retroperitoneal lymph nodes also. Lymph nodes are slightly smaller in size as compared to 02/15/2024. GI tract: Stomach is moderately distended with fluid. No small bowel obstruction. Diffuse diverticulosis throughout the colon. There are mild changes suggestive of acute diverticulitis in the descending colon. Numerous adjacent diverticula. No abscess. Normal appendix. Abdominal wall: Negative. No hernia. Pelvis: Prostate gland is enlarged encroaching into the bladder. No free fluid or adenopathy within the pelvis. Osseous structures: Advanced degenerative disc disease and lumbar spondylosis. No destructive bone lesions. Bones are osteopenic. CT/CT kidney stone [id number] IMPRESSION: 1. Mild LEFT hydroureteronephrosis secondary to a 3.5 mm calcification in the distal LEFT ureter. 2. There are additional numerous nonobstructing calcifications within each kid chelly. 3. Normal appendix. 4. Diffuse colonic diverticulosis. Focal acute diverticulitis in the descendin g colon. No abscess. 5. Colonic wall thickening in the descending and sigmoid colon. Neoplasm is no t excluded. This is at the site of pericolonic stranding. Neoplasm is not exclu ded. 6. Stomach is markedly distended with fluid. This may be due to recent ingesti on of liquid or partial outlet obstruction. There is reflux of liquid into the distal esophagus.
== END 2024-10-19 12:24 | disposition home or self-care (01) ==
PROVIDERS: PCP Family Medicine; Visit Provider Family Medicine
DX: R10.32 Left lower quadrant pain (principal); N20.0 Calculus of kidney; C92.00 Acute myeloblastic leukemia, not having achieved remission; N13.30 Unspecified hydronephrosis; N28.89 Other specified disorders of kidney and ureter; K57.30 Diverticulosis of large intestine without perforation or abscess without bleeding; K57.32 Diverticulitis of large intestine without perforation or abscess without bleeding; R93.89 Abnormal findings on diagnostic imaging of other specified body structures; K31.89 Other diseases of stomach and duodenum; R93.5 Abnormal findings on diagnostic imaging of other abdominal regions, including retroperitoneum; K44.9 Diaphragmatic hernia without obstruction or gangrene; R93.421 Abnormal radiologic findings on diagnostic imaging of right kidney; R93.422 Abnormal radiologic findings on diagnostic imaging of left kidney; I70.0 Atherosclerosis of aorta; I70.8 Atherosclerosis of other arteries; N40.0 Benign prostatic hyperplasia without lower urinary tract symptoms; R59.0 Localized enlarged lymph nodes; M47.896 Other spondylosis, lumbar region; R93.7 Abnormal findings on diagnostic imaging of other parts of musculoskeletal system
CPT/HCPCS: 74176

== ENCOUNTER 2024-11-20 11:16 | Oncology outpatient (recurring) (ONCR) | payer MEDICARE, SELFPAY ==
[2024-10-23 12:37] LABS: Basophils % 0.7 %; Eosinophils # 0.2 10^3/uL (0.0-0.8); Eosinophils % 15.7 %; Hematocrit 22.2 % (37-53); Lymphocytes # 0.6 10^3/uL (0.8-4.8); Lymphocytes % 46.3 %; Mean Corpuscular HGB Conc 31.1 g/dL (30-55); Mean Corpuscular Hemoglobin 32.5 pg (27-33); Mean Corpuscular Volume 104.7 fl (82-101); Mean Platelet Volume 9.9 fL (7.4-10.4); Monocytes # 0.2 10^3/uL (0.2-0.9); Monocytes % 14.9 %; Neutrophils % 20.9 %; Nucleated Red Blood Cells % 0 %; Platelet Count 70 10^3/cmm (157-399); Red Blood Count 2.12 10^6/uL (3.85-5.65); Red Cell Distribution Width 19.9 % (12.1-15.1); White Blood Count 1.34 10^3/uL (3.29-11.43)
[2024-10-23 12:53] LABS: Alanine Aminotransferase 11 U/L (0-41); Albumin Level 3.3 g/dL (3.5-5.2); Alkaline Phosphatase 62 U/L (40-130); Anion Gap 13.3 (5-19); Aspartate Amino Transferase 11 U/L (0-40); Blood Urea Nitrogen 22 mg/dL (8-23); Carbon Dioxide 23 mmol/L (22-29); Chloride 99 mmol/L (98-107); Globulin 3.2 g/dL (1.3-4.6); Glucose 136 mg/dL (65-115); Osmolality Calculated 279 mOsm/kg (285-295); Potassium 3.3 mmol/L (3.5-5.1); Sodium 132 mmol/L (136-145); Total Bilirubin 0.2 mg/dL (0.15-1.2); Total Protein 6.5 g/dL (6.6-8.7)
[2024-10-23 13:08] LABS: Neutrophils # 0.28 10^3/uL (1.8-7.7)
[2024-10-23 13:09] LABS: Slide Review Slide Review Perform
[2024-10-26] VITALS (8 sets, daily range): BP systolic 92–113; BP diastolic 56–68; PULSE 68–88; RESP 16–17; TEMP 36.9–37.3; O2SAT 95–98
[2024-10-26] MEDS: diphenhydrAMINE 25 mg Capsule PO (10:46)
[2024-10-26] MEDS: acetaminophen 325 mg Tablet 650 MG PO (10:46)
[2024-10-26] MEDS: sodium chloride 0.9% 250 mL Bag IV (10:48)
[2024-11-06 10:12] LABS: Hematocrit 34.2 % (37-53); Mean Corpuscular HGB Conc 31.3 g/dL (30-55); Mean Corpuscular Hemoglobin 29.6 pg (27-33); Mean Corpuscular Volume 94.7 fl (82-101); Platelet Count 130 10^3/cmm (157-399); Red Blood Count 3.61 10^6/uL (3.85-5.65); Red Cell Distribution Width 23.1 % (12.1-15.1); White Blood Count 6.95 10^3/uL (3.29-11.43)
[2024-11-06 10:31] LABS: Alanine Aminotransferase 11 U/L (0-41); Albumin Level 3.5 g/dL (3.5-5.2); Alkaline Phosphatase 56 U/L (40-130); Anion Gap 15.1 (5-19); Aspartate Amino Transferase 15 U/L (0-40); Blood Urea Nitrogen 26 mg/dL (8-23); Calcium 9.4 mg/dL (8.5-10.5); Carbon Dioxide 21 mmol/L (22-29); Chloride 102 mmol/L (98-107); Globulin 3.4 g/dL (1.3-4.6); Glucose 122 mg/dL (65-115); Lactate Dehydrogenase 150 U/L (135-225); Osmolality Calculated 284 mOsm/kg (285-295); Potassium 4.1 mmol/L (3.5-5.1); Sodium 134 mmol/L (136-145); Total Bilirubin 0.3 mg/dL (0.15-1.2); Total Protein 6.9 g/dL (6.6-8.7)
[2024-11-06 10:35] LABS: Slide Review Slide Review Perform
[2024-11-06 10:38] LABS: Absolute Eosinophils 0.1 10^3/cmm (0.0-0.7); Absolute Segmented Neutrophil 3.4 10/cmm (1.6-7.1); Band Neutrophils Absolute 0.7 10^3/cmm (0.0-1.2); Eosinophils 1 %; Lymphocytes 18 %; Monocytes Absolute 1.2 10^3/cmm (0.1-0.6); Segmented Neutrophils 49 %; Total Cells Counted 100 (0-100)
[2024-11-06 10:39] LABS: Absolute Neutrophil 4.1 10^3/cmm (1.4-6.5); Anisocytosis 2+; Lymphocytes Absolute 1.3 10^3/cmm (1.2-3.4); Platelet Estimate Decreased (Normal); Poikilocytosis 1+
[2024-11-06 11:16] LABS: Vitamin B12 483 pg/mL (232-1245)
[2024-11-13 11:59] LABS: Basophils # 0.1 10^3/uL (0.0-0.1); Basophils % 0.7 %; Eosinophils % 0.4 %; Hematocrit 34.4 % (37-53); Lymphocytes # 0.8 10^3/uL (0.8-4.8); Lymphocytes % 6.9 %; Mean Corpuscular HGB Conc 31.7 g/dL (30-55); Mean Corpuscular Hemoglobin 29.8 pg (27-33); Mean Platelet Volume 10.6 fL (7.4-10.4); Monocytes # 3.1 10^3/uL (0.2-0.9); Monocytes % 27.9 %; Neutrophils # 6.54 10^3/uL (1.8-7.7); Neutrophils % 59.4 %; Nucleated Red Blood Cells % 0 %; Platelet Count 115 10^3/cmm (157-399); Red Blood Count 3.66 10^6/uL (3.85-5.65); Red Cell Distribution Width 23.5 % (12.1-15.1); White Blood Count 11.01 10^3/uL (3.29-11.43)
[2024-11-13 12:13] LABS: Alanine Aminotransferase 10 U/L (0-41); Albumin Level 3.9 g/dL (3.5-5.2); Alkaline Phosphatase 64 U/L (40-130); Anion Gap 16.8 (5-19); Aspartate Amino Transferase 13 U/L (0-40); Blood Urea Nitrogen 35 mg/dL (8-23); Calcium 9.7 mg/dL (8.5-10.5); Carbon Dioxide 21 mmol/L (22-29); Chloride 102 mmol/L (98-107); Globulin 3.6 g/dL (1.3-4.6); Glucose 127 mg/dL (65-115); Lactate Dehydrogenase 157 U/L (135-225); Osmolality Calculated 292 mOsm/kg (285-295); Potassium 3.8 mmol/L (3.5-5.1); Sodium 136 mmol/L (136-145); Total Bilirubin 0.3 mg/dL (0.15-1.2); Total Protein 7.5 g/dL (6.6-8.7)
[2024-11-20 11:45] LABS: Hematocrit 33.9 % (37-53); Mean Corpuscular HGB Conc 32.2 g/dL (30-55); Mean Corpuscular Hemoglobin 29.9 pg (27-33); Mean Corpuscular Volume 92.9 fl (82-101); Mean Platelet Volume 10.5 fL (7.4-10.4); Platelet Count 106 10^3/cmm (157-399); Red Blood Count 3.65 10^6/uL (3.85-5.65); Red Cell Distribution Width 23.6 % (12.1-15.1); White Blood Count 9.74 10^3/uL (3.29-11.43)
[2024-11-20 12:01] LABS: Alanine Aminotransferase 12 U/L (0-41); Albumin Level 3.9 g/dL (3.5-5.2); Alkaline Phosphatase 55 U/L (40-130); Anion Gap 17.7 (5-19); Aspartate Amino Transferase 14 U/L (0-40); Blood Urea Nitrogen 37 mg/dL (8-23); Calcium 9.7 mg/dL (8.5-10.5); Carbon Dioxide 19 mmol/L (22-29); Chloride 99 mmol/L (98-107); Creatinine Clr Calc Pharmacy 33.3006; Globulin 3.5 g/dL (1.3-4.6); Glucose 115 mg/dL (65-115); Osmolality Calculated 284 mOsm/kg (285-295); Potassium 3.7 mmol/L (3.5-5.1); Sodium 132 mmol/L (136-145); Total Bilirubin 0.3 mg/dL (0.15-1.2); Total Protein 7.4 g/dL (6.6-8.7)
[2024-11-20 12:15] LABS: Slide Review Slide Review Perform
[2024-11-20 12:16] LABS: Absolute Segmented Neutrophil 4.5 10/cmm (1.6-7.1); Band Neutrophils Absolute 1.3 10^3/cmm (0.0-1.2); Eosinophils 0 %; Lymphocytes 12 %; Lymphocytes Absolute 1.2 10^3/cmm (1.2-3.4); Monocytes Absolute 1.9 10^3/cmm (0.1-0.6); Segmented Neutrophils 46 %; Total Cells Counted 100 (0-100)
[2024-11-20 12:17] LABS: Absolute Neutrophil 5.7 10^3/cmm (1.4-6.5); Anisocytosis 1+; Platelet Estimate Decreased (Normal)
== END 2024-11-20 23:59 | disposition home or self-care (01) ==
PROVIDERS: Nurse Practitioner Family; PCP Family Medicine; Visit Provider Internal Medicine Medical Oncology
DX: Z53.9 Procedure and treatment not carried out, unspecified reason; C92.00 Acute myeloblastic leukemia, not having achieved remission; D75.9 Disease of blood and blood-forming organs, unspecified; Z79.69 Long term (current) use of other immunomodulators and immunosuppressants; T45.1X5A Adverse effect of antineoplastic and immunosuppressive drugs, initial encounter; Z79.2 Long term (current) use of antibiotics
CPT/HCPCS: 36415; 36430; 36591; 80053; 82607; 82746; 83615; 85007; 85025; 86850; 86900; 86920; 99214; J7050; J9999; P9016

== ENCOUNTER 2024-12-06 09:39 | Oncology outpatient (recurring) (ONCR) | payer MEDICARE, SELFPAY ==
[2024-12-06 10:12] LABS: Hematocrit 32.8 % (37-53); Mean Corpuscular Hemoglobin 30.3 pg (27-33); Mean Corpuscular Volume 94.8 fl (82-101); Mean Platelet Volume 10.7 fL (7.4-10.4); Platelet Count 64 10^3/cmm (157-399); Red Blood Count 3.46 10^6/uL (3.85-5.65); Red Cell Distribution Width 24.6 % (12.1-15.1)
[2024-12-06 10:44] LABS: Alanine Aminotransferase 11 U/L (0-41); Albumin Level 3.8 g/dL (3.5-5.2); Alkaline Phosphatase 46 U/L (40-130); Anion Gap 16.7 (5-19); Aspartate Amino Transferase 12 U/L (0-40); Blood Urea Nitrogen 27 mg/dL (8-23); Calcium 9.3 mg/dL (8.5-10.5); Carbon Dioxide 23 mmol/L (22-29); Chloride 100 mmol/L (98-107); Creatinine Clr Calc Pharmacy 43.2908; Glucose 98 mg/dL (65-115); Osmolality Calculated 287 mOsm/kg (285-295); Potassium 3.7 mmol/L (3.5-5.1); Sodium 136 mmol/L (136-145); Total Bilirubin 0.2 mg/dL (0.15-1.2); Total Protein 6.8 g/dL (6.6-8.7)
[2024-12-06 10:48] LABS: Band Neutrophils Absolute 0.6 10^3/cmm (0.0-1.2); Eosinophils 0 %; Lymphocytes 8 %; Lymphocytes Absolute 1.4 10^3/cmm (1.2-3.4); Segmented Neutrophils 65 %; Slide Review Slide Review Perform; Total Cells Counted 100 (0-100)
[2024-12-06 10:49] LABS: Absolute Neutrophil 7.6 10^3/cmm (1.4-6.5); Platelet Estimate Decreased (Normal)
== END 2024-12-20 23:59 | disposition home or self-care (01) ==
PROVIDERS: PCP Family Medicine; Visit Provider Internal Medicine Medical Oncology
DX: C92.00 Acute myeloblastic leukemia, not having achieved remission (principal); D75.9 Disease of blood and blood-forming organs, unspecified; T45.1X5A Adverse effect of antineoplastic and immunosuppressive drugs, initial encounter; Z79.69 Long term (current) use of other immunomodulators and immunosuppressants; Z79.899 Other long term (current) drug therapy; Z79.2 Long term (current) use of antibiotics
CPT/HCPCS: 36591; 80053; 85007; 85025; 99214

== ENCOUNTER 2025-01-16 13:15 | Oncology outpatient (recurring) (ONCR) | payer MEDICARE, SELFPAY ==
[2024-12-26 13:35] LABS: Basophils % 0.6 %; Hematocrit 26.7 % (37-53); Lymphocytes # 0.5 10^3/uL (0.8-4.8); Mean Corpuscular HGB Conc 32.6 g/dL (30-55); Mean Corpuscular Hemoglobin 31.9 pg (27-33); Mean Corpuscular Volume 97.8 fl (82-101); Mean Platelet Volume 9.8 fL (7.4-10.4); Monocytes % 30.1 %; Neutrophils # 1.65 10^3/uL (1.8-7.7); Neutrophils % 50.5 %; Nucleated Red Blood Cells % 0 %; Platelet Count 31 10^3/cmm (157-399); Red Blood Count 2.73 10^6/uL (3.85-5.65); White Blood Count 3.26 10^3/uL (3.29-11.43)
[2024-12-26 13:50] LABS: Alanine Aminotransferase 11 U/L (0-41); Albumin Level 3.6 g/dL (3.5-5.2); Alkaline Phosphatase 52 U/L (40-130); Aspartate Amino Transferase 11 U/L (0-40); Blood Urea Nitrogen 30 mg/dL (8-23); Calcium 9.1 mg/dL (8.5-10.5); Carbon Dioxide 19 mmol/L (22-29); Chloride 100 mmol/L (98-107); Creatinine Clr Calc Pharmacy 43.0086; Globulin 3.1 g/dL (1.3-4.6); Glucose 116 mg/dL (65-115); Osmolality Calculated 285 mOsm/kg (285-295); Sodium 134 mmol/L (136-145); Total Bilirubin 0.3 mg/dL (0.15-1.2); Total Protein 6.7 g/dL (6.6-8.7)
[2025-01-16 13:09] LABS: Basophils % 0.5 %; Eosinophils # 0.1 10^3/uL (0.0-0.8); Eosinophils % 1.6 %; Hematocrit 26.1 % (37-53); Lymphocytes # 0.7 10^3/uL (0.8-4.8); Lymphocytes % 17.8 %; Mean Corpuscular HGB Conc 32.2 g/dL (30-55); Mean Corpuscular Hemoglobin 33.9 pg (27-33); Mean Corpuscular Volume 105.2 fl (82-101); Monocytes # 0.7 10^3/uL (0.2-0.9); Monocytes % 19.1 %; Neutrophils # 2.16 10^3/uL (1.8-7.7); Neutrophils % 59.1 %; Nucleated Red Blood Cells % 0 %; Platelet Count 37 10^3/cmm (157-399); Red Blood Count 2.48 10^6/uL (3.85-5.65); Red Cell Distribution Width 21.7 % (12.1-15.1); White Blood Count 3.66 10^3/uL (3.29-11.43)
[2025-01-16 13:31] LABS: Alanine Aminotransferase 10 U/L (0-41); Albumin Level 3.7 g/dL (3.5-5.2); Alkaline Phosphatase 53 U/L (40-130); Anion Gap 17.7 (5-19); Aspartate Amino Transferase 11 U/L (0-40); Blood Urea Nitrogen 31 mg/dL (8-23); Calcium 9.1 mg/dL (8.5-10.5); Carbon Dioxide 20 mmol/L (22-29); Chloride 103 mmol/L (98-107); Creatinine Clr Calc Pharmacy 39.0987; Globulin 2.9 g/dL (1.3-4.6); Glucose 142 mg/dL (65-115); Osmolality Calculated 293 mOsm/kg (285-295); Potassium 3.7 mmol/L (3.5-5.1); Sodium 137 mmol/L (136-145); Total Bilirubin 0.2 mg/dL (0.15-1.2); Total Protein 6.6 g/dL (6.6-8.7)
== END 2025-01-20 23:59 | disposition home or self-care (01) ==
PROVIDERS: Nurse Practitioner Family; PCP Family Medicine; Visit Provider Internal Medicine Medical Oncology
DX: Z53.9 Procedure and treatment not carried out, unspecified reason; C92.00 Acute myeloblastic leukemia, not having achieved remission; D69.6 Thrombocytopenia, unspecified; D75.9 Disease of blood and blood-forming organs, unspecified; T45.1X5A Adverse effect of antineoplastic and immunosuppressive drugs, initial encounter; Z79.899 Other long term (current) drug therapy
CPT/HCPCS: 36591; 80053; 85025; 99214

== ENCOUNTER 2025-02-15 10:13 | Oncology outpatient (recurring) (ONCR) | payer MEDICARE, SELFPAY ==
[2025-02-01 14:17] LABS: Basophils % 0.2 %; Eosinophils # 0.1 10^3/uL (0.0-0.8); Eosinophils % 2.3 %; Hematocrit 24.3 % (37-53); Lymphocytes # 0.8 10^3/uL (0.8-4.8); Lymphocytes % 18.5 %; Mean Corpuscular HGB Conc 32.5 g/dL (30-55); Mean Corpuscular Hemoglobin 34.5 pg (27-33); Mean Corpuscular Volume 106.1 fl (82-101); Mean Platelet Volume 10.4 fL (7.4-10.4); Monocytes # 0.7 10^3/uL (0.2-0.9); Monocytes % 16.9 %; Neutrophils # 2.66 10^3/uL (1.8-7.7); Neutrophils % 60.7 %; Nucleated Red Blood Cells % 0 %; Platelet Count 71 10^3/cmm (157-399); Red Blood Count 2.29 10^6/uL (3.85-5.65); Red Cell Distribution Width 18.8 % (12.1-15.1); White Blood Count 4.38 10^3/uL (3.29-11.43)
[2025-02-01 14:28] LABS: Alanine Aminotransferase 13 U/L (0-41); Albumin Level 3.8 g/dL (3.5-5.2); Alkaline Phosphatase 60 U/L (40-130); Anion Gap 13.9 (5-19); Aspartate Amino Transferase 15 U/L (0-40); Blood Urea Nitrogen 27 mg/dL (8-23); Calcium 9.2 mg/dL (8.5-10.5); Carbon Dioxide 23 mmol/L (22-29); Chloride 101 mmol/L (98-107); Globulin 2.9 g/dL (1.3-4.6); Glucose 105 mg/dL (65-115); Osmolality Calculated 283 mOsm/kg (285-295); Potassium 3.9 mmol/L (3.5-5.1); Sodium 134 mmol/L (136-145); Total Bilirubin 0.3 mg/dL (0.15-1.2); Total Protein 6.7 g/dL (6.6-8.7)
[2025-02-06 09:42] VITALS: BP 117/67; PULSE 76; RESP 17; TEMP 37.1; O2SAT 94
[2025-02-12 10:44] LABS: Basophils % 0.5 %; Eosinophils # 0.1 10^3/uL (0.0-0.8); Eosinophils % 3.2 %; Hematocrit 26.2 % (37-53); Lymphocytes # 0.8 10^3/uL (0.8-4.8); Lymphocytes % 19.5 %; Mean Corpuscular HGB Conc 32.1 g/dL (30-55); Mean Corpuscular Hemoglobin 34.7 pg (27-33); Mean Corpuscular Volume 108.3 fl (82-101); Mean Platelet Volume 9.5 fL (7.4-10.4); Monocytes # 0.5 10^3/uL (0.2-0.9); Monocytes % 11.6 %; Neutrophils # 2.56 10^3/uL (1.8-7.7); Nucleated Red Blood Cells % 0 %; Platelet Count 79 10^3/cmm (157-399); Red Blood Count 2.42 10^6/uL (3.85-5.65); White Blood Count 4.06 10^3/uL (3.29-11.43)
[2025-02-12] MEDS: sodium chloride 0.9% 250 mL Bag IV (12:40)
[2025-02-12 12:51] VITALS: BP 120/64; PULSE 87; TEMP 36.9; O2SAT 98
[2025-02-12 13:08] VITALS: BP 110/68; PULSE 85; TEMP 36.8; O2SAT 94
[2025-02-12 13:23] VITALS: BP 114/72; PULSE 86; RESP 16; TEMP 36.4; O2SAT 95
[2025-02-12 14:00] VITALS: BP 130/73; PULSE 71; RESP 16; TEMP 36.3; O2SAT 97
[2025-02-12 15:10] VITALS: BP 127/54; PULSE 70; RESP 16; TEMP 36.2; O2SAT 95
[2025-02-15 10:43] LABS: Basophils % 0.3 %; Eosinophils # 0.1 10^3/uL (0.0-0.8); Eosinophils % 2.8 %; Hematocrit 32.4 % (37-53); Lymphocytes # 0.8 10^3/uL (0.8-4.8); Lymphocytes % 19.8 %; Mean Corpuscular HGB Conc 32.7 g/dL (30-55); Mean Corpuscular Volume 103.8 fl (82-101); Mean Platelet Volume 9.8 fL (7.4-10.4); Monocytes # 0.6 10^3/uL (0.2-0.9); Monocytes % 14.7 %; Neutrophils # 2.34 10^3/uL (1.8-7.7); Neutrophils % 60.1 %; Nucleated Red Blood Cells % 0 %; Platelet Count 80 10^3/cmm (157-399); Red Blood Count 3.12 10^6/uL (3.85-5.65); Red Cell Distribution Width 18.1 % (12.1-15.1); White Blood Count 3.89 10^3/uL (3.29-11.43)
[2025-02-15 10:53] LABS: Alanine Aminotransferase 16 U/L (0-41); Albumin Level 3.8 g/dL (3.5-5.2); Alkaline Phosphatase 68 U/L (40-130); Anion Gap 15.9 (5-19); Aspartate Amino Transferase 18 U/L (0-40); Blood Urea Nitrogen 29 mg/dL (8-23); Calcium 9.8 mg/dL (8.5-10.5); Carbon Dioxide 27 mmol/L (22-29); Chloride 98 mmol/L (98-107); Globulin 3.1 g/dL (1.3-4.6); Glucose 112 mg/dL (65-115); Lactate Dehydrogenase 157 U/L (135-225); Osmolality Calculated 291 mOsm/kg (285-295); Potassium 3.9 mmol/L (3.5-5.1); Sodium 137 mmol/L (136-145); Total Bilirubin 0.3 mg/dL (0.15-1.2); Total Protein 6.9 g/dL (6.6-8.7); Uric Acid 7.3 mg/dL (3.4-7.0)
[2025-02-15 12:50] LABS: Iron 109 ug/dL (59-158); Percent Saturation 37.2 % (20-50); Total Iron Binding Capacity 293 mcg/dl; Unsaturated Iron Binding 184 ug/dL (112-347)
[2025-02-15 13:04] LABS: Ferritin 1599 ng/mL (30-400)
[2025-02-15 13:05] LABS: Vitamin B12 268 pg/mL (232-1245)
[2025-02-15 14:42] LABS: Folate Level 10.9 ng/mL (4.5-32.2)
== END 2025-02-19 23:59 | disposition home or self-care (01) ==
PROVIDERS: Internal Medicine; Nurse Practitioner Family; PCP Family Medicine; Visit Provider Nurse Practitioner
DX: Z53.9 Procedure and treatment not carried out, unspecified reason; C92.00 Acute myeloblastic leukemia, not having achieved remission; Z95.828 Presence of other vascular implants and grafts; Z79.899 Other long term (current) drug therapy
CPT/HCPCS: 36430; 36591; 80053; 82607; 82728; 82746; 83540; 83550; 83615; 84550; 85014; 85018; 85025; 86850; 86900; 86920; 96523; 99214; 99215; J7050; P9040

== ENCOUNTER 2025-02-27 09:43 | Oncology outpatient (recurring) (ONCR) | payer MEDICARE, SELFPAY ==
[2025-02-27 10:17] LABS: Hematocrit 31.8 % (37-53); Hemoglobin 10.40 g/dL (11.27-16.99); Mean Corpuscular HGB Conc 32.7 g/dL (30-55); Mean Corpuscular Hemoglobin 34.1 pg (27-33); Mean Corpuscular Volume 104.3 fl (82-101); Nucleated Red Blood Cells % 0 %; Platelet Count 92 10^3/cmm (157-399); Red Blood Count 3.05 10^6/uL (3.85-5.65); White Blood Count 3.84 10^3/uL (3.29-11.43)
[2025-02-27 10:36] LABS: Alanine Aminotransferase 17 U/L (0-41); Albumin Level 3.8 g/dL (3.5-5.2); Alkaline Phosphatase 72 U/L (40-130); Anion Gap 13.5 (5-19); Aspartate Amino Transferase 17 U/L (0-40); Blood Urea Nitrogen 26 mg/dL (8-23); Calcium 9.6 mg/dL (8.5-10.5); Carbon Dioxide 27 mmol/L (22-29); Chloride 102 mmol/L (98-107); Creatinine Clr Calc Pharmacy 44.4242; Globulin 2.9 g/dL (1.3-4.6); Glucose 115 mg/dL (65-115); Iron 84 ug/dL (59-158); Osmolality Calculated 294 mOsm/kg (285-295); Potassium 3.5 mmol/L (3.5-5.1); Sodium 139 mmol/L (136-145); Total Iron Binding Capacity 282 mcg/dl; Total Protein 6.7 g/dL (6.6-8.7); Unsaturated Iron Binding 198 ug/dL (112-347); Uric Acid 6.4 mg/dL (3.4-7.0)
[2025-02-27 10:50] LABS: Ferritin 1352 ng/mL (30-400)
[2025-02-27 10:51] LABS: Vitamin B12 239 pg/mL (232-1245)
== END 2025-03-22 23:59 | disposition home or self-care (01) ==
LOC: ONCMED 09:44
PROVIDERS: PCP Family Medicine; Visit Provider Nurse Practitioner
DX: Z53.9 Procedure and treatment not carried out, unspecified reason (principal); D64.9 Anemia, unspecified; C92.00 Acute myeloblastic leukemia, not having achieved remission; Z79.899 Other long term (current) drug therapy; Z45.2 Encounter for adjustment and management of vascular access device; D75.9 Disease of blood and blood-forming organs, unspecified; T45.1X5A Adverse effect of antineoplastic and immunosuppressive drugs, initial encounter; Z79.69 Long term (current) use of other immunomodulators and immunosuppressants
CPT/HCPCS: 36591; 80053; 82607; 82728; 82746; 83540; 83550; 83615; 84550; 85025; 99214

== ENCOUNTER 2025-03-27 12:34 | Oncology outpatient (recurring) (ONCR) | payer MEDICARE, SELFPAY ==
[2025-03-27 12:54] LABS: Hematocrit 31.6 % (37-53); Hemoglobin 10.70 g/dL (11.27-16.99); Mean Corpuscular HGB Conc 33.9 g/dL (30-55); Mean Corpuscular Hemoglobin 34.3 pg (27-33); Mean Corpuscular Volume 101.3 fl (82-101); Nucleated Red Blood Cells % 0 %; Platelet Count 117 10^3/cmm (157-399); Red Blood Count 3.12 10^6/uL (3.85-5.65); White Blood Count 3.72 10^3/uL (3.29-11.43)
[2025-03-27 13:27] LABS: Alanine Aminotransferase 18 U/L (0-41); Albumin Level 3.8 g/dL (3.5-5.2); Alkaline Phosphatase 79 U/L (40-130); Anion Gap 13.1 (5-19); Aspartate Amino Transferase 24 U/L (0-40); Blood Urea Nitrogen 28 mg/dL (8-23); Calcium 9.6 mg/dL (8.5-10.5); Carbon Dioxide 27 mmol/L (22-29); Chloride 102 mmol/L (98-107); Creatinine Clr Calc Pharmacy 44.2786; Globulin 2.9 g/dL (1.3-4.6); Glucose 105 mg/dL (65-115); Osmolality Calculated 292 mOsm/kg (285-295); Potassium 4.1 mmol/L (3.5-5.1); Sodium 138 mmol/L (136-145); Total Protein 6.7 g/dL (6.6-8.7)
== END 2025-04-22 23:59 | disposition home or self-care (01) ==
PROVIDERS: PCP Family Medicine; Visit Provider Nurse Practitioner
DX: C92.00 Acute myeloblastic leukemia, not having achieved remission (principal); Z95.828 Presence of other vascular implants and grafts; Z79.899 Other long term (current) drug therapy
CPT/HCPCS: 36591; 80053; 85025; 86850; 86900; 99214

== ENCOUNTER 2025-05-01 14:01 | Oncology outpatient (recurring) (ONCR) | payer MEDICARE, SELFPAY ==
[2025-04-24 13:52] LABS: Hematocrit 34.6 % (37-53); Hemoglobin 11.50 g/dL (11.27-16.99); Mean Corpuscular HGB Conc 33.2 g/dL (30-55); Mean Corpuscular Hemoglobin 33.1 pg (27-33); Mean Corpuscular Volume 99.7 fl (82-101); Nucleated Red Blood Cells % 0 %; Platelet Count 130 10^3/cmm (157-399); Red Blood Count 3.47 10^6/uL (3.85-5.65); White Blood Count 4.64 10^3/uL (3.29-11.43)
[2025-04-24 14:13] LABS: Alanine Aminotransferase 21 U/L (0-41); Albumin Level 4.0 g/dL (3.5-5.2); Alkaline Phosphatase 77 U/L (40-130); Anion Gap 11.9 (5-19); Aspartate Amino Transferase 20 U/L (0-40); Blood Urea Nitrogen 29 mg/dL (8-23); Calcium 9.8 mg/dL (8.5-10.5); Carbon Dioxide 29 mmol/L (22-29); Chloride 100 mmol/L (98-107); Globulin 2.9 g/dL (1.3-4.6); Glucose 119 mg/dL (65-115); Osmolality Calculated 291 mOsm/kg (285-295); Potassium 3.9 mmol/L (3.5-5.1); Sodium 137 mmol/L (136-145); Total Protein 6.9 g/dL (6.6-8.7)
[2025-04-24 14:26] LABS: Ferritin 1255 ng/mL (30-400)
[2025-04-24 14:29] LABS: Vitamin B12 390 pg/mL (232-1245)
== END 2025-05-22 23:59 | disposition home or self-care (01) ==
PROVIDERS: PCP Family Medicine; Visit Provider Nurse Practitioner
DX: C92.00 Acute myeloblastic leukemia, not having achieved remission (principal); Z95.828 Presence of other vascular implants and grafts; Z92.21 Personal history of antineoplastic chemotherapy; Z79.899 Other long term (current) drug therapy
CPT/HCPCS: 36591; 80053; 82607; 82728; 83010; 83615; 83921; 85025; 99214

== ENCOUNTER 2025-07-10 12:32 | Oncology outpatient (recurring) (ONCR) | payer MEDICARE, SELFPAY ==
[2025-07-10 12:53] LABS: Hematocrit 32.9 % (37-53); Hemoglobin 10.90 g/dL (11.27-16.99); Mean Corpuscular HGB Conc 33.1 g/dL (30-55); Mean Corpuscular Hemoglobin 30.6 pg (27-33); Mean Corpuscular Volume 92.4 fl (82-101); Nucleated Red Blood Cells % 0 %; Platelet Count 157 10^3/cmm (157-399); Red Blood Count 3.56 10^6/uL (3.85-5.65); White Blood Count 5.47 10^3/uL (3.29-11.43)
[2025-07-10 13:19] LABS: Alanine Aminotransferase 16 U/L (0-41); Albumin Level 3.8 g/dL (3.5-5.2); Alkaline Phosphatase 103 U/L (40-130); Anion Gap 16.5 (5-19); Aspartate Amino Transferase 21 U/L (0-40); Blood Urea Nitrogen 26 mg/dL (8-23); Calcium 9.6 mg/dL (8.5-10.5); Carbon Dioxide 26 mmol/L (22-29); Chloride 99 mmol/L (98-107); Creatinine Clr Calc Pharmacy 40.0383; Globulin 2.9 g/dL (1.3-4.6); Glucose 102 mg/dL (65-115); Osmolality Calculated 289 mOsm/kg (285-295); Potassium 4.5 mmol/L (3.5-5.1); Sodium 137 mmol/L (136-145); Total Protein 6.7 g/dL (6.6-8.7)
== END 2025-07-22 23:59 | disposition home or self-care (01) ==
PROVIDERS: Internal Medicine Medical Oncology; PCP Family Medicine; Visit Provider Nurse Practitioner
DX: Z53.9 Procedure and treatment not carried out, unspecified reason; Z08 Encounter for follow-up examination after completed treatment for malignant neoplasm; Z85.6 Personal history of leukemia; Z95.828 Presence of other vascular implants and grafts; Z92.21 Personal history of antineoplastic chemotherapy
CPT/HCPCS: 36591; 80053; 85025; 99214